=== PATIENT | male | born 1960 | race Caucasian/White ===

== ENCOUNTER 2021-11-01 07:16 | Inpatient (IN) | payer OTHER, SELFPAY ==
[2021-11-01] VITALS (30 sets, daily range): BP systolic 114–164; BP diastolic 76–113; PULSE 82–99; RESP 8–22; TEMP 36.1–36.9; O2SAT 94–100
--- NOTE | 2021-11-01 | ECHO_ITS ---
Patient Info Name: Azeem Sweeney Age: 60 years : 1960 Gender: Male Ht: 77 in Wt: 252 lbs BSA: 2.51 m2 HR: 85 bpm BP: 146 / 99 mmHg Heart Rhythm: Sinus Rhythm Technical Quality: Fair Exam Date: 11/01/2021 4:59 PM Exam Location: [facility] Patient Status: Inpatient Admit Date: 11/01/2021 Staff Ordering Physician: Lucho Gutiérrez MD Car Mechanic Helper: Luna Coleman RDCS Attending Provider: Ton Gan MD Referring Physician: Brock RODRIGUEZ; Exam Type: CA echo doppler color flow Study Info Indications - cad, dyspnea, elevated troponin Complete two-dimensional, color flow and Doppler transthoracic echocardiogram is performed. Summary 1. Complete two-dimensional, color flow and Doppler transthoracic echocardiogram is performed. 2. Left ventricular chamber dimension is normal. 3. Left ventricular systolic function is normal, estimated at 65-70%. 4. There is mildly increased left ventricular wall thickness. 5. The left ventricular diastolic function is grade I diastolic dysfunction. 6. There is mild mitral valve regurgitation. 7. No pulmonary hypertension, estimated pulmonary arterial systolic pressure is 32 mmHg. Left Ventricle Left ventricular chamber dimension is normal. Left ventricular systolic function is normal, estimated at 65-70%. There is mildly increased left ventricular wall thickness. The left ventricular diastolic function is grade I diastolic dysfunction. Right Ventricle Right ventricular chamber dimension is normal. Right ventricular systolic function is normal. Left Atria Left atrial chamber dimension is normal. Right Atria Right atrial chamber dimension is normal. Atrial Septum Intact interatrial septum visualized by color flow imaging. Aortic Valve The aortic valve is trileaflet. There is mild aortic valve sclerosis. There is no aortic valve stenosis. There is trace aortic valve regurgitation. Pulmonic Valve The pulmonic valve is normal. There is no pulmonic valve stenosis. There is trace pulmonic regurgitation. Mitral Valve The mitral valve has thickened leaflets. There is no mitral valve stenosis. There is mild mitral valve regurgitation. Tricuspid Valve The tricuspid valve leaflets are normal. There is no significant tricuspid valve stenosis. There is trace tricuspid valve regurgitation. No pulmonary hypertension, estimated pulmonary arterial systolic pressure is 32 mmHg. Pericardium/Pleural The pericardium appears normal. There is trivial pericardial effusion. Inferior Vena Cava Normal inferior vena cava with >50% collapse upon inspiration consistent with normal right atrial pressure, 5 mmHg. Aorta The aortic root size at the sinus of Valsalva is normal. The prox ascending aorta size is normal. Left Ventricular Outflow Tract Name Value Normal LVOT 2D LVOT Diameter 2.1 cm LVOT Doppler LVOT Peak Gradient 5 mmHg LVOT Mean Gradient 2 mmHg LVOT VTI 18 cm LVOT VTI/AV VTI Ratio 1.[address]
--- NOTE | ~2021-11-01 | XR_ITS ---
XR chest 2V DATE: 11/01/2021 08:13 INDICATION: Dyspnea TECHNIQUE: PA and lateral views COMPARISON: None FINDINGS: There is bilateral apical scarring, more prominent on the right. Approximately 7 mm nodular density in the right apex; lung mass is not excluded. CT thorax examination is recommended. No pulmonary consolidation, pleural effusion, pulmonary vascular congestion or pneumothorax is eviden t. Heart size is within normal range. No hilar or mediastinal enlargement is evident. IMPRESSION: Possible approximately 7 mm nodular mass, right apical area; CT thorax is recommended Bilateral apical scarring, right greater than left Reviewed, dictated and finalized at location A. MIN MANAGER IMPRESSION: Possible approximately 7 mm nodular mass, right apical area; CT tho rax is recommended Bilateral apical scarring, right greater than left
--- NOTE | ~2021-11-01 | XR_ITS ---
EXAMINATION: XR knee LT 2V DATE: 11/05/2021 10:09 INDICATION: Left knee pain without injury. TECHNIQUE: 2 views of left knee standing were obtained. COMPARISON: None. FINDINGS: Bone alignment is normal. No fracture. There is mild osteoarthritis of medial and patellofe moral compartments characterized by tiny osteophytes. No joint space narrowing. No knee joint effusio n. IMPRESSION: 1. Mild left knee osteoarthritis. Reviewed, dictated and finalized at location A. ADJUSTER
--- NOTE | ~2021-11-01 | CT_ITS ---
EXAMINATION: CTA chest PE protocol DATE: 11/01/2021 09:17 INDICATION: Dyspnea. Lung mass. TECHNIQUE: Computed tomography angiography (CTA) of the chest was performed with 100 mL Omnipaque-350 intravenous contrast timed to evaluate the pulmonary arteries. Coronal maximum intensity projection 3D-reconstructions were created by the technologist. Automated exposure control and iterative reconst ruction technique were employed. Exam dose: 919.86 mGy-cm total exam DLP. COMPARISON: 11/01/2021 2 view chest FINDINGS: There is diagnostic contrast enhancement of the pulmonary arteries and no evidence of pulmo nary embolism. No thoracic aortic aneurysm or dissection. Normal heart size. Coronary artery calcifications. There is trace pericardial fluid. No hilar or mediastinal mass lesion or lymphadenopathy. There is prominent right and lesser left apical scarring. There is discoid fibrocalcific scarring in the right apical area. There is a 7 mm oval calcification in the right apical area which accounts for the nodular density noted on the plain chest radiograph. Additional calcifications are noted in the right upper lobe. There are severe emphysematous changes of the lungs. Included skeletal structures are unremarkable. IMPRESSION: Bilateral apical and right upper lobe scarring including prominent fibrocalcific discoid scarring is in the right upper lung Severe emphysema No evidence of pulmonary embolism Reviewed, dictated and finalized at Location A. Reviewed, dictated and finalized at location A. LAYER
--- NOTE | ~2021-11-01 | XR_ITS ---
EXAMINATION: XR knee RT 2V DATE: 11/05/2021 10:09 INDICATION: Right knee pain without injury. TECHNIQUE: 2 views of right knee were obtained. COMPARISON: None. FINDINGS: Bone alignment is normal. No fracture. There is mild tricompartmental osteoarthritis charac terized by tiny osteophytes. No joint space narrowing. No knee joint effusion. IMPRESSION: 1. Mild right knee osteoarthritis. Reviewed, dictated and finalized at location A. CONDITIONER
--- NOTE | 2021-11-01 07:29 | ED.SOB ---
HPI - SOB/Dyspnea General Chief Complaint: Shortness of Breath/Dyspnea Stated Complaint: diff breathing Time Seen by Provider: 11/01/21 07:29 Source: patient Mode of arrival: ambulatory Limitations: no limitations History of Present Illness HPI Narrative: Patient is a 60-year-old male with a history of hypertension, hyperlipidemia, COPD, recent STEMI with stent placement, hospitalized at [facility], presenting to the emergency department for evaluation of shortness of breath. Patient states that he has been awakening in the morning with cough, increased sputum production. At times he feel the sputum gets stuck in his throat. At that point, the patient states he is unable to breathe and his oxygen level drops. Patient states oxygen level dropped to 82%, states he has been checking it at home with home pulse ox. Patient denies fever, chills. Denies current chest pain. Does report shortness of breath that worsens with exertions. Denies lower extremity swelling or edema. Denies calf pain. Patient has been compliant with his medications following his STEMI at outlying facility. Patient states he has not missed his anticoagulation. Denies current active chest pain. Patient states that prior to that he was hospitalized at [facility] in [place] for pneumonia but tested negative for Covid. Patient also states he tested negative for Covid with his [facility] hospitalization. Patient states he decided to seek care at this facility because he did not like the physician at [facility], and states that they did not take his insurance. Patient states that he does not want to be transferred to [facility]. Related Data Home Medications Medication Instructions Recorded Confirmed albuterol sulfate [Proventil HFA] INHALATION 11/01/21 aspirin 11/01/21 atorvastatin 80 mg PO DAILY 11/01/21 11/01/21 gjowlatdufy-ntnpyfasj-ipsymdur 1 inh INHALATION DAILY 11/01/21 11/01/21 [Kaya Portillota] irbesartan 300 mg PO DAILY 11/01/21 11/01/21 metoprolol succinate 25 mg PO DAILY 11/01/21 11/01/21 nitroglycerin mg 11/01/21 pantoprazole 40 mg PO DAILY 11/01/21 11/01/21 prednisone 20 mg PO BID 11/01/21 11/01/21 ticagrelor 90 mg PO Q12H 11/01/21 11/01/21 Allergies Allergy/AdvReac Type Severity Reaction Status Date / Time NKDA Allergy Mild Uncoded 03/09/08 16:37 Review of Systems Review of Systems: CONSTITUTIONAL: Denies fever, chills, or sweats. EYES: Denies visual changes, redness, or discharge. ENT: Reports rhinorrhea, congestion CARDIOVASCULAR: Denies chest pain, palpitations, or edema. RESPIRATORY: Reports cough and shortness of breath GASTROINTESTINAL: Denies abdominal pain, nausea, vomiting, or diarrhea. GENITOURINARY: Denies dysuria or hematuria. SKIN: Denies rash or itching. MUSCULOSKELETAL: Denies back pain, joint pain, or myalgia. NEUROLOGIC: Denies headache, numbness, or weakness. Exam Narrative: GENERAL: Awake, alert, conversant HEAD: Normocephalic, atraumatic. EYES: PERRLA and EOMI. ENT: Nares clear, no rhinorrhea or epistaxis. Mucous membranes moist. NECK: Supple. CHEST: No respiratory distress, breathing even and non labored, coarse breath sounds bilaterally, expiratory wheezing bilateral bases HEART: Tachycardic rate, sinus rhythm ABDOMEN:Non distended, non tender EXTREMITIES: Normal range of motion. No edema. No calf tenderness. SKIN: Warm, dry, no rash. NEURO:No focal deficits. Alert and oriented x3 Course Vital Signs Vital signs: Vital Signs Pulse Rate 94 11/01/21 07:19 Respiratory Rate 12 11/01/21 07:19 Blood Pressure 164/113 H 11/01/21 07:19 Pulse Oximetry 99 11/01/21 07:19 Temperature 36.1 C L 11/01/21 07:38 Pulse Rate 84 11/01/21 11:15 Respiratory Rate 18 11/01/21 11:15 Blood Pressure 145/91 H 11/01/21 07:45 Pulse Oximetry 97 11/01/21 11:51 MDM - SOB/Dyspnea MDM Narrative Medical decision making narrative: Patient presented for may
[2021-11-01] MEDS: ALBUTEROL SULFATE NEB 2.5 MG/0.5 ML INH 5 MG INHALATION ×3 (07:57→19:56)
[2021-11-01] MEDS: IPRATROPIUM BR 0.02% INH SOLN 0.5 MG/2.5 ML VIAL INHALATION ×3 (07:57→19:56)
[2021-11-01 08:11] LABS: Basophils Percent Auto 0.2 % (0.2-1.2); Hematocrit 45.2 % (42.0-52.0); Hemoglobin 15.3 g/dL (14.0-18.0); Lymphocytes Absolute Auto 0.86 K/mm3 (0.9-3.2); Lymphocytes Percent Auto 4.3 % (18.3-44.2); Mean Corpuscular HGB Conc 33.8 g/dl (32-36); Mean Corpuscular Hemoglobin 32.2 pg (26-34); Mean Corpuscular Volume 95.2 fl (80-100); Mean Platelet Volume 12.3 fl (7.4-10.4); Monocytes Absolute Auto 0.7 K/mm3 (0.1-0.6); Monocytes Percent Auto 3.3 % (2.6-8.5); Neutrophils Absolute Auto 17.8 K/mm3 (1.3-6.7); Neutrophils Percent Auto 90.2 % (45.5-73.1); Platelet Count Result 139 k/mm3 (150-375); Red Blood Count 4.75 M/mm3 (4.6-6.20); White Blood Count 19.8 K/mm3 (4.5-10.0)
[2021-11-01] MEDS: SODIUM CHLORIDE 0.9% IV 500 ML 999 ML IV CONT (08:15)
[2021-11-01] MEDS: methylPREDNISolone SOD SUCC 125 MG VIAL IV PUSH (08:16)
[2021-11-01 08:24] LABS: INR 0.9; Prothrombin Time 11.9 Seconds (11.1-14.7)
[2021-11-01 08:25] LABS: Alanine Aminotransferase 64 U/L (4-50); Albumin Level 4.2 g/dL (3.5-5.1); Alkaline Phosphatase 71 U/L (38-126); Anion Gap 8 mmol/L (8-16); Aspartate Amino Transferase 42 U/L (17-59); Bilirubin,Total 0.7 mg/dL (0.2-1.3); Blood Urea Nitrogen 23 mg/dL (9-20); Calcium 8.6 mg/dL (8.4-10.2); Carbon Dioxide 24 mmol/L (22-30); Chloride 103 mmol/L (98-107); Estimated CRCL calculation 106 ml/min; Estimated Glomerular Filt Rate > 60; Glucose 142 mg/dL (65-110); Partial Thromboplastin Time 22.6 SECONDS (22.3-36.8); Sodium 135 mmol/L (137-145)
[2021-11-01 08:34] LABS: NT Pro B Type Natriuretic Pept 71 pg/mL (5-100); Troponin I 0.628 ng/mL (0.000-0.034)
--- NOTE | 2021-11-01 10:29 | PC.NURSE ---
pt refusing covid swab test, informed of possible transfer to [place], pt denied and stated he would not like to go by [facility] and instead would drive himself. notified and aware.
--- NOTE | 2021-11-01 11:20 | PC.NURSE ---
MD spoke with pt and gave update on status and reason for transfer/admission. Pt understood and stated he would like to be admitted here or [facility]. Pt agreed to covid swab.
[2021-11-01 11:47] LABS: Troponin I 0.722 ng/mL (0.000-0.034)
--- NOTE | 2021-11-01 11:49 | ECG_ITS ---
Measurements Intervals [place] Rate: 90 P: 56 [place]: 144 QRS: 21 QRSD: 86 T: 82 QT: 337 QTc: 412 Interpretive Statements SINUS RHYTHM NONSPECIFIC T-WAVE ABNORMALITY ABNORMAL ECG NO PREVIOUS ECG AVAILABLE FOR COMPARISON Electronically Signed On 11-01-2021 13:59:40 DOCUMENT CONTROL CLERK by Lucho Gutiérrez M.D.
[2021-11-01 12:39] LABS: SARS-CoV-2 RNA PCR Negative
[2021-11-01] MEDS: methylPREDNISolone SOD SUCC 125 MG VIAL 60 MG IV PUSH ×3 (14:41→23:12)
[2021-11-01 16:21] LABS: Troponin I 0.561 ng/mL (0.000-0.034)
--- NOTE | 2021-11-01 16:27 | PM.CNCAR ---
Assessment and Plan Assessment and plan (1) Elevated troponin: Code(s): R77.8 - Other specified abnormalities of plasma proteins Status: Acute Assessment and Plan: Likely secondary to underlying severe COPD and dyspnea from COPD. I do not think this is from acute plaque rupture even though he recently had a ST-elevation myocardial infarction. Will continue to trend troponins. Will repeat EKG tomorrow. Will check a 2D echocardiogram with Doppler. Will request records from [place] to clarify his coronary history. (2) COPD exacerbation: Code(s): J44.1 - Chronic obstructive pulmonary disease with (acute) exacerbation Status: Acute Assessment and Plan: Will hold the metoprolol for now given his acute COPD exacerbation. Further treatment per hospitalist/pulmonology but likely need steroids and nebulizers (3) Coronary disease: Code(s): I25.10 - Atherosclerotic heart disease of [place] coronary artery without angina pectoris Status: Acute Assessment and Plan: Recent STEMI. Previous PCI prior to STEMI also. Continue aspirin 81 mg p.o. daily, Brilinta 90 mg p.o. b.i.d., atorvastatin 80 mg daily. Hold metoprolol because of his COPD exacerbation. Echocardiogram will be ordered. Will request records (4) Acute dyspnea: Code(s): R06.00 - Dyspnea, unspecified Status: Acute Assessment and Plan: Mostly related to underlying COPD exacerbation. He also refers to a sensation like something is stuck in his throat or but he cannot breathe and his upper airway. He actually may need a ENT evaluation (5) Hyperlipidemia: Code(s): E78.5 - Hyperlipidemia, unspecified Status: Acute Assessment and Plan: Continue high-dose statin (6) Hypertension: Code(s): I10 - Essential (primary) hypertension Status: Acute Assessment and Plan: Irbesartan 300 mg daily. (7) PND (paroxysmal nocturnal dyspnea): Code(s): R06.00 - Dyspnea, unspecified Status: Acute Assessment and Plan: Undoubtedly has sleep apnea. Will order an ApneaLink tonight History of Present Illness History of Present Illness Consult date/time: 11/01/21 16:27 Requesting physician: Terra Manjarrez MD Consult reason: Other (Elevated troponin) Reason For Visit: COPD Exacerbation, Troponin Elevation Narrative: Date of service 11/01/2021 Reason consultation: Elevated troponin, shortness of breath, recent [place] Requesting provider: Dr. Manjarrez History: Patient is a 60-year-old male who has history of CAD. He had a stent placed several years ago and was recently at [facility] because of a ST-elevation myocardial infarction. 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 He was discharged yesterday. He shows up to the hospital here today in [place] because of a sensation as if he has a mucous plug in his upper throat. He feels short of breath. He has had worsening swelling for the past year or so. This is persistent but better than what it had been. He does describe paroxysmal nocturnal dyspnea. No syncope or presyncope. Has had no chest pain since his myocardial infarction and stent placement a few days ago. He was discharged home on metoprolol, dual anti-platelet therapy, statin and other pulmonary medications. In the process of workup his troponins were slightly elevated and the 2nd set was slightly more elevated and therefore the patient was admitted for further evaluation. He currently feels fine and is without significant complaint except for cough and discontinue sensation of mucus buildup in his throat. Prior to his stent at [facility] he was admitted at [place] for pneumonia. He does have a history of severe COPD Review of Systems Review of Systems: All systems reviewed &
--- NOTE | 2021-11-01 17:06 | ADMGEN ---
This patient, Azeem Sweeney, was admitted to IMU Room 203-01 at 1519. Patient/family oriented to hospital policies and general routines including ID bracelet, bed and alarms, visiting hours, pain management, procedures, bathroom and other care routines, personal items, smoking policy, room service/diet, and visiting hours. Information on how to activate the Rapid Response Team has been discussed. Patient/Family are encouraged to report perceived risks to care and to ask questions if they do not understand what they are told or what they should do.
[2021-11-01] MEDS: FUROSEMIDE INJ 40 MG/4 ML VIAL IV PUSH (18:11)
[2021-11-01 19:40] LABS: Troponin I 0.566 ng/mL (0.000-0.034)
--- NOTE | 2021-11-01 20:05 | PCRCNOTE ---
Apnea link ordered on 11/01 unable to perform due to pt being on Lasix during the night.
[2021-11-01] MEDS: TICAGRELOR 90 MG TABLET PO (20:09)
--- NOTE | 2021-11-01 21:45 | PM.IMHP ---
H&P: HPI History of Present Illness Date/Time: Patient was placed observation status for expected length of stay less than 23 hours for management, will plan to re-evaluate tomorrow for improvement. 11/01/21 21:45 Chief Complaint: Shortness of breath Narrative: Mr. Sweeney is a 60-year-old gentleman who presented emergency room with complaints of increasing shortness of breath today. Patient states he has a history of COPD and he felt like he had a large amount of mucus caught his certain he could not catch his breath. Patient states that he has a pulse oximeter at home and when he checked his pulse oximeter was 82% on room air with walking. Patient states he has been on steroids secondary to his COPD. Patient states he also recently did have a Zaiz ST segment elevated myocardial infarction and had a stent placed at [facility] in [place], [place]. Patient had an Reji stent placed to his mid OM. Patient states he has been taking all medications as ordered and has not missed any of his medications. Patient states he also did have a stent placed [address] [facility] was in [place]. Patient denies any lightheadedness, dizziness, syncopal, or near syncopal episodes. Patient denies any active chest pain or palpitations. Patient states he does have a history of COPD, CAD status post stent placement x2, dyslipidemia, and hypertension. Upon evaluation in emergency room patient was placed on a pulse oximeter and was noted to be 100% on room air. Patient did have chest x-ray performed that showed a 7 mm nodular mass in the right apical area. Patient also underwent CTA that showed bilateral apical and right upper lobe scarring including prominent fibrocalcific discoid scarring he in the right upper lung, severe emphysema, and no evidence of pulmonary embolism. Review of Systems Review of Systems: A 12 point review of systems was completed patient all pertinent positive and negative per HPI the remainder are unremarkable. [facility] Past Medical History Medical History (Updated 11/01/21 @ 21:56 by Sherie Fernandez APRN) COPD (chronic obstructive pulmonary disease) Coronary disease Dyslipidemia Former tobacco use Hypertension Family History Family History (Updated 11/01/21 @ 16:31 by Lucho Gutiérrez MD) Father Acute myocardial infarction Social History Social History Smoking packs per day: 2 Smoking cigarettes per day: 40.0 Years smoked: 40 Smoking pack-years: 80.00 Smoking status: Former smoker Spiritual care concerns: No Meds Home Medications and Allergies Home Medications Medication Instructions Recorded Confirmed Type albuterol sulfate [Proventil HFA] 2 puff INHALATION Q6H 11/01/21 11/01/21 History aspirin 81 mg PO DAILY 11/01/21 11/01/21 History atorvastatin 80 mg PO DAILY 11/01/21 11/01/21 History cefdinir 300 mg PO BID 11/01/21 11/01/21 History kasqjwstdms-ubsdrozfl-ptvrgcav 1 inh INHALATION DAILY 11/01/21 11/01/21 History [Trelegy Ellipta] ipratropium-albuterol 3 ml INHALATION Q6H PRN 11/01/21 11/01/21 History irbesartan 300 mg PO DAILY 11/01/21 11/01/21 History metoprolol succinate 25 mg PO DAILY 11/01/21 11/01/21 History nitroglycerin 0.4 mg SUBLINGUAL Q5MIN 11/01/21 11/01/21 History pantoprazole 40 mg PO DAILY 11/01/21 11/01/21 History prednisone 20 mg PO BID 11/01/21 11/01/21 History ticagrelor 90 mg PO Q12H 11/01/21 11/01/21 History Allergies Allergy/AdvReac Type Severity Reaction Status Date / Time NKDA Allergy Mild Uncoded 03/09/08 16:37 Vital Signs Vital Signs - 24 hr 11/01/21 07:19 11/01/21 07:23 11/01/21 07:36 Temperature Pulse Rate 94 97 Respiratory Rate 12 17 Blood Pressure 164/113 H 153/105 H Pulse Oximetry 99 99 96 11/01/21 07:38 11/01/21 07:45 11/01/21 07:57 Temperature 36.1 C L Pulse Rate 89 90 90 Respiratory Rate 12 14 12 Blood Pressure 153/105 H 145/91 H Pulse Oximetry 96 97 11/01/21 08:00 11/01/21 08:06 11/01/21 09:31
[2021-11-02] VITALS (23 sets, daily range): BP systolic 122–137; BP diastolic 82–93; PULSE 83–109; RESP 18–22; TEMP 35.7–36.6; O2SAT 90–97
[2021-11-02] MEDS: IPRATROPIUM BR 0.02% INH SOLN 0.5 MG/2.5 ML VIAL INHALATION ×4 (01:52→20:26)
[2021-11-02] MEDS: ALBUTEROL SULFATE NEB 2.5 MG/0.5 ML INH 5 MG INHALATION ×4 (01:52→20:26)
[2021-11-02 05:03] LABS: Basophils Absolute Auto 0.1 K/mm3 (0.0-0.1); Basophils Percent Auto 0.2 % (0.2-1.2); Hematocrit 47.6 % (42.0-52.0); Hemoglobin 16.5 g/dL (14.0-18.0); Immature Granulocyte Absolute 0.38 K/mm3 (0.00-0.031); Immature Granulocyte Percent A 1.8 % (0-0.5); Lymphocytes Absolute Auto 1.25 K/mm3 (0.9-3.2); Lymphocytes Percent Auto 5.8 % (18.3-44.2); Mean Corpuscular HGB Conc 34.7 g/dl (32-36); Mean Corpuscular Hemoglobin 32.7 pg (26-34); Mean Corpuscular Volume 94.3 fl (80-100); Mean Platelet Volume 12.5 fl (7.4-10.4); Monocytes Absolute Auto 0.8 K/mm3 (0.1-0.6); Monocytes Percent Auto 3.6 % (2.6-8.5); Neutrophils Absolute Auto 19.2 K/mm3 (1.3-6.7); Neutrophils Percent Auto 88.6 % (45.5-73.1); Platelet Count Result 168 k/mm3 (150-375); Red Blood Count 5.05 M/mm3 (4.6-6.20); Red Cell Distribution Width 14.2 % (11.5-14.5); White Blood Count 21.7 K/mm3 (4.5-10.0)
[2021-11-02 05:34] LABS: Anion Gap 11 mmol/L (8-16); Blood Urea Nitrogen 27 mg/dL (9-20); Calcium 8.7 mg/dL (8.4-10.2); Carbon Dioxide 25 mmol/L (22-30); Chloride 100 mmol/L (98-107); Estimated CRCL calculation 86 ml/min; Estimated Glomerular Filt Rate > 60; Glucose 145 mg/dL (65-110); Potassium 4.3 mmol/L (3.4-5.0); Sodium 136 mmol/L (137-145)
[2021-11-02] MEDS: methylPREDNISolone SOD SUCC 125 MG VIAL 60 MG IV PUSH ×4 (05:54→23:00)
--- NOTE | 2021-11-02 08:00 | ECG_ITS ---
Measurements Intervals [place] Rate: 102 P: 74 NE: 151 QRS: 57 QRSD: 94 T: 88 QT: 315 QTc: 411 Interpretive Statements SINUS TACHYCARDIA NONSPECIFIC ST & T-WAVE ABNORMALITY CANNOT RULE OUT PREVIOUS INFERIOR INFARCTION, AGE UNDETERMINED ABNORMAL ECG Electronically Signed On 11-02-2021 15:22:27 BATCH RECORDS CLERK by Lucho Gutiérrez M.D.
[2021-11-02] MEDS: FLUTICASONE/UMECLIDIN/VILANTER 200-62.5-25 MCG ELLIPTA 1 PUFF INHALATION (08:05)
[2021-11-02] MEDS: ASPIRIN 81 MG ENTERIC TABLET PO (09:31)
[2021-11-02] MEDS: IRBESARTAN 150 MG TABLET 300 MG PO (09:31)
[2021-11-02] MEDS: METOPROLOL SUCCINATE EXT REL 25 MG TABCR PO (09:31)
[2021-11-02] MEDS: ATORVASTATIN 40 MG TABLET 80 MG PO (09:31)
[2021-11-02] MEDS: TICAGRELOR 90 MG TABLET PO ×2 (09:31→20:18)
[2021-11-02] MEDS: PANTOPRAZOLE 40 MG TABLET PO (09:31)
[2021-11-02] MEDS: ENOXAPARIN 40 MG/0.4 ML SYRINGE SUB-Q (09:32)
--- NOTE | 2021-11-02 13:36 | PM.PNCARD ---
Progress Note: A&P Assessment and Plan (1) Elevated troponin: Code(s): R77.8 - Other specified abnormalities of plasma proteins Status: Acute Assessment and Plan: Likely secondary to underlying severe COPD and dyspnea from COPD. I do not think this is from acute plaque rupture even though he recently had a ST-elevation myocardial infarction. (2) COPD exacerbation: Code(s): J44.1 - Chronic obstructive pulmonary disease with (acute) exacerbation Status: Acute Assessment and Plan: Further treatment per hospitalist/pulmonology but likely need steroids and nebulizers. He still has some mild lower extremity swelling and will give another dose of IV furosemide 20 mg x1 (3) Coronary disease: Code(s): I25.10 - Atherosclerotic heart disease of [place] coronary artery without angina pectoris Status: Acute Assessment and Plan: Recent STEMI. Previous PCI prior to STEMI also. Continue aspirin 81 mg p.o. daily, Brilinta 90 mg p.o. b.i.d., atorvastatin 80 mg daily. PCI was to the circumflex. (4) Acute dyspnea: Code(s): R06.00 - Dyspnea, unspecified Status: Acute Assessment and Plan: Mostly related to underlying COPD exacerbation. He also refers to a sensation like something is stuck in his throat or but he cannot breathe and his upper airway. He actually may need a ENT evaluation (5) Hyperlipidemia: Code(s): E78.5 - Hyperlipidemia, unspecified Status: Acute Assessment and Plan: Continue high-dose statin (6) Hypertension: Code(s): I10 - Essential (primary) hypertension Status: Acute Assessment and Plan: Irbesartan 300 mg daily. (7) PND (paroxysmal nocturnal dyspnea): Code(s): R06.00 - Dyspnea, unspecified Status: Acute Assessment and Plan: Undoubtedly has sleep apnea. Apnea link not performed because of ?Lasix ? Subjective Date/time seen: 11/02/21 13:36 Interval history: 60-year-old admitted with elevated troponins and shortness of breath. Date of service 11/02/2021: Still feels like he has a lot of ?mucus?. He has no chest pain. Has shortness of breath and mild swelling. Review of Systems Review of Systems: All systems reviewed & are unremarkable except as noted in HPI and below Constitutional: Constitutional: Denies excessive sweating, Denies headache(s) and Denies weakness Eyes: Eyes: Denies blurry vision ENT: Reports Normal hearing present, Denies headache(s) and Denies neck pain Cardiovascular: Cardiovascular: Reports chest pain, Reports pedal edema, Reports leg edema and Reports dyspnea Respiratory: Respiratory: Reports dyspnea Gastrointestinal: Gastrointestinal: Denies abdominal pain Genitourinary: Genitourinary: Denies dysuria Musculoskeletal: Musculoskeletal: Denies neck pain Integumentary/Breasts: Skin/Breast: Denies dry skin Neurologic: Reports Normal hearing present, Denies headache(s) and Denies weakness Psychiatric: Psychiatric: Denies anxiety Endocrine: Endocrine: Denies excessive sweating Hematologic/Lymphatic: Hematologic/Lymphatic: Denies easy bleeding Allergic/Immunologic: Allergic/Immunologic: Denies GI upset with certain foods Exam Narrative: Patient awake alert oriented appears stated age Const: General: comfortable and no acute distress HENMT: General nose exam: Normal nares present Eyes: Sclera: sclerae normal Neck: Neck: supple and no JVD Chest: Other: No reproducible chest wall pain to palpation Resp: Auscultation: wheezes Other: Extensive wheezes noted bilaterally Cardio: Rate: regular rate Rhythm: regular rhythm Heart sounds: no murmurs GI: Auscultation: normal bowel sounds Skin: General skin exam: normal color Neuro: Cranial nerves: Yes Normal hearing present Cognition (Neuro): normal cognition Speech: normal speech Extrem: General: edema (1+ bilateral extremity edema) Psych: Mental Status: mental status grossly normal
[2021-11-02] MEDS: FUROSEMIDE INJ 40 MG/4 ML VIAL 20 MG IV PUSH (14:38)
--- NOTE | 2021-11-02 16:24 | PM.IMPN ---
Progress Note: A&P Additional Plan Assessment and plan (1) COPD (chronic obstructive pulmonary disease): Code(s): J44.9 - Chronic obstructive pulmonary disease, unspecified Status: Acute Assessment and Plan: - Not requiring supplemental Oxygen at this time. - Patient has been placed on Solu-Medrol 60 mg IV q.6 hours as well as DuoNeb treatments, prn albuterol and Trelegy. - He continues to complain about his Dyspnea and feeling that he cannot clear his secretions, so he is started on Guaifenesin 600 mg po BID and Pulmonology is consulted. Appreciate their recommendations on co-management of his COPD. (2) Elevated troponin: Code(s): R77.8 - Other specified abnormalities of plasma proteins Status: Acute Assessment and Plan: - STEMI on SaturdayOctober 29. - Stented at [facility] in [place]. - Etiology of elevated troponin from oxygen demand due to COPD exacerbation vs. from recent STEMI. - Cardiology has consulted and believe the symptoms are due to the underlying COPD. - As pt. remains swollen in the BLE, Cardiology does order another dose of IV Lasix 20 mg. (3) Hypertension: Code(s): I10 - Essential (primary) hypertension Status: Acute Assessment and Plan: - Continue home medications. (4) Leukocytosis: Code(s): D72.829 - Elevated white blood cell count, unspecified Status: Acute Assessment and Plan: - Etiology infectious vs. Pharmacological. Suspicion secondary to steroids. - CXR and CTA are negative for any acute infectious process in the lungs. - Continue to monitor daily. Time Spent With Patient Time with patient: 15 - 25 minutes Subjective Date/time seen: 11/02/21 1340 This pt. was examined at the bedside today in interval assessment. He has been evaluated by Cardiology and there is a low suspicion of any repeat ACS or plaque rupture. The pt. more-so complains of having a feeling that he cannot clear his secretions with coughing. He endorses that he has a persistently dry cough that is not productive of any sputum and that he feels and hears himself wheezing. He has been on steroids at home as of recent and cites that they have not helped his respiratory status either as they normally do. The use of these steroids (Prednisone 20 mg po BID) at home is likely the cause of his current Leukocytosis of 21.7. CTA of chest was reviewed and shown bilateral apical and RUL scarring including prominent fibrocalcific discoid scarring in the RUL. There is severe emphysema and no PE. CXR was also reviewed and shown a possible approximately 7 mm nodular mass in the right apical area. This is noted on CTA to be a calcification, and there are also additional calcifications in the RUL. There was also bilateral apical scarring, R>L. Current Pulmonary Medications are 1) Solumedrol 60 mg IVP Q6 hours, 2) Albuterol and Atrovent scheduled, 3) PRN Albuterol 4) Trelegy Ellipta. Pt. states he still does not feel ready for discharge to home at this time and asks if he can stay as he doesn't feel his breathing is better. I am agreeable to this plan and am going to consult Pulmonology for co-management. Review of Systems Review of Systems: A 12 point ROS was performed and is otherwise negative with exception of what is noted in HPI. Exam Narrative: Constitutional: Patient is well-nourished in no acute distress. Patient is alert oriented x3 HEENT: Moist mucous membranes. No scleral icterus. No lymphadenopathy. Neck: No carotid bruits noted no JVD noted Lungs: Lung sounds are decreased to auscultation bilaterally. There is a prolonged expiratory phase with expiratory wheezing audible posteriorly and anteriorly. Cardiovascular: Apical pulse is regular rate and rhythm. S1-S2 noted, no S3 or S4 noted. No gallops, murmurs, or rubs noted. Abdomen: Soft, round, and nontender. No palpable masses. Extremities: No edema. Nontender. Skin: No rashes or lesions. Warm and
[2021-11-02 17:40] LABS: Alveolar/Arterial O2 Gradient 41.4 mmHg; Base Excess ABG -2.2 mEq/l (+/-2.0); Device ROOM AIR; Fractional Inspired Oxygen 21 %; HCO3 ABG 19.8 mEq/l (22.0-26.0); Modified Allen's Test Pass; Oxygen Content ABG 21.9 %vol (16.0-22.0); Oxyhemoglobin 94.1 % THb (90.0-100.0); PO2 ABG 74.8 mmHg (80.0-100.0); PO2 FiO2 Ratio Arterial Blood 3.56 %; Site Drawn RIGHT RADIAL; Total Hemoglobin 16.6 g/dL (12.0-18.0); pH ABG 7.467 (7.350-7.450)
--- NOTE | 2021-11-02 18:08 | PC.NURSE ---
This patient, Azeem Sweeney, was received from [facility]u on 11/02/21 at 1808. Patient/family oriented to unit policies and routines
[2021-11-02] MEDS: guaiFENesin 12 HR 600 MG TABCR PO (20:18)
[2021-11-03] VITALS (22 sets, daily range): BP systolic 124–145; BP diastolic 85–95; PULSE 75–106; RESP 16–20; TEMP 36.3–36.7; O2SAT 91–98
--- NOTE | 2021-11-03 01:59 | PCRCNOTE ---
Nebulizer treatment scheduled for 02:00 on 11/03/21 not administered. Pt on overnight sleep study and not to be disturbed. Entered room to confirm ApneaLink lights were all green, but did not administer nebulizer treatment.
[2021-11-03] MEDS: methylPREDNISolone SOD SUCC 125 MG VIAL 60 MG IV PUSH (05:03)
[2021-11-03 05:38] LABS: Basophils Absolute Auto 0.1 K/mm3 (0.0-0.1); Basophils Percent Auto 0.2 % (0.2-1.2); Hematocrit 45.8 % (42.0-52.0); Hemoglobin 15.8 g/dL (14.0-18.0); Immature Granulocyte Absolute 0.44 K/mm3 (0.00-0.031); Immature Granulocyte Percent A 1.8 % (0-0.5); Lymphocytes Absolute Auto 1.42 K/mm3 (0.9-3.2); Lymphocytes Percent Auto 5.8 % (18.3-44.2); Mean Corpuscular HGB Conc 34.5 g/dl (32-36); Mean Corpuscular Volume 92.9 fl (80-100); Mean Platelet Volume 12.3 fl (7.4-10.4); Monocytes Absolute Auto 1.1 K/mm3 (0.1-0.6); Monocytes Percent Auto 4.4 % (2.6-8.5); Neutrophils Absolute Auto 21.5 K/mm3 (1.3-6.7); Neutrophils Percent Auto 87.8 % (45.5-73.1); Platelet Count Result 177 k/mm3 (150-375); Red Blood Count 4.93 M/mm3 (4.6-6.20); Red Cell Distribution Width 13.9 % (11.5-14.5); White Blood Count 24.4 K/mm3 (4.5-10.0)
[2021-11-03 05:50] LABS: Anion Gap 7 mmol/L (8-16); Blood Urea Nitrogen 34 mg/dL (9-20); Calcium 8.4 mg/dL (8.4-10.2); Carbon Dioxide 29 mmol/L (22-30); Chloride 100 mmol/L (98-107); Estimated CRCL calculation 86 ml/min; Estimated Glomerular Filt Rate > 60; Glucose 156 mg/dL (65-110); Magnesium 2.2 mg/dL (1.6-2.3); Potassium 4.6 mmol/L (3.4-5.0); Sodium 136 mmol/L (137-145)
[2021-11-03] MEDS: guaiFENesin 12 HR 600 MG TABCR PO ×2 (08:00→20:49)
[2021-11-03] MEDS: PANTOPRAZOLE 40 MG TABLET PO (08:01)
[2021-11-03] MEDS: TICAGRELOR 90 MG TABLET PO ×2 (08:01→20:49)
[2021-11-03] MEDS: IRBESARTAN 150 MG TABLET 300 MG PO (08:01)
[2021-11-03] MEDS: ASPIRIN 81 MG ENTERIC TABLET PO (08:01)
[2021-11-03] MEDS: ATORVASTATIN 40 MG TABLET 80 MG PO (08:01)
[2021-11-03] MEDS: METOPROLOL SUCCINATE EXT REL 25 MG TABCR PO (08:02)
[2021-11-03] MEDS: FLUTICASONE/UMECLIDIN/VILANTER 200-62.5-25 MCG ELLIPTA 1 PUFF INHALATION (08:14)
[2021-11-03] MEDS: IPRATROPIUM BR 0.02% INH SOLN 0.5 MG/2.5 ML VIAL INHALATION ×4 (08:14→20:24)
[2021-11-03] MEDS: ALBUTEROL SULFATE NEB 2.5 MG/0.5 ML INH 5 MG INHALATION (08:14)
--- NOTE | 2021-11-03 09:12 | PM.CNPUL ---
Assessment and Plan Assessment and plan (1) COPD exacerbation: Code(s): J44.1 - Chronic obstructive pulmonary disease with (acute) exacerbation Status: Acute Assessment and Plan: 60-year-old man with a history of 68 pack year tobacco use who quit 6 years ago with severe apical predominant panlobular emphysema on his CT scan from 11/01/2021 presents now with worsening shortness of breath, phlegm production, wheezing over the last 3 months since being exposed to his live-in girlfriend who tested positive for COVID. I think he is having a COPD exacerbation. Regarding other etiologies for his symptoms the patient has a CT angiogram that is negative for pulmonary embolism and negative for any post COVID interstitial lung disease or organizing pneumonia. There are no focal infiltrates that would suggest a bacterial pneumonia. His COVID RT PCR test is negative. I will check a influenza swab. he had an echocardiogram and there is no evidence of left heart failure, severe mitral valve disease or pulmonary hypertension. He had an ABG of 7.47/28/75 on room air so there is no evidence of hypercarbic respiratory failure. I agree with treatment for a COPD exacerbation and he has improved clinically and still has mild wheezes today. I will increase his nebulizer frequency and place him on albuterol 2.5 mg nebs q.4 hours, ipratropium 0.5 mg nebs q.4 hours, I will decrease his Solu-Medrol from 60 mg Q 6 to 20 mg IV q.6. he has a leukocytosis of 24.4 today and I suspect this is related to his the high doses of Solu-Medrol. Patient is having a difficult time expectorating and he says that 6 years ago when he had a pneumonia they gave him a vest in the hospital and this worked very well. He has also used an Acapella flutter valve at home but this provides him minimal help. I will continue guaifenesin 600 mg p.o. q.12 hours. Will start a Cornet valve flutter device to help him expectorate. I will also initiate Pulmozyme 2.5 mg q.12 hours. the patient would benefit from a home vibratory vest apparatus as he has had multiple pneumonias in the last 3 months and these appear to be related I will continue azithromycin 500 mg IV q.day as he seems that since starting this last night this has helped his secretions today. Patient had an overnight oximetry with saturations less than 88% at [address] the patient on 1 L nasal cannula tonight and repeat an overnight oximetry. his oxygen should be increased until he achieves an overnight oximetry with time of saturation less than or equal to 88% at less than 5 minutes. Discussed with Libby Graham pulmonary inpatient services will resume on 11/06/2021. Call the on-call pulmonary physician with any questions. History of Present Illness History of Present Illness Consult date: 11/03/21 Requesting physician: Libby Graham, [employer] Reason for consult: COPD Chief complaint: COPD Exacerbation, Troponin Elevation Narrative: 11/03/2021: This is a new pulmonary consult for COPD exacerbation. 60-year-old man with a history of COPD (diagnosed 8 years ago with severe upper lobe predominant panlobular emphysema on his CT scan from 11/01/2021, I have no PFTs), unvaccinated for COVID and status post COVID pneumonia in and September of 2021, coronary artery disease status post stent approximately 10/29/21, Hypertension and hyperlipidemia. patient has a history of COPD rated related to past tobacco use. Patient smoked 2 packs per day from age [age] pack years. 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 Patient was exposed to secondhand smoke from both parents but none currently. Prior to 3 months ago patient states that he could walk an on limited distance. He states he could walk for miles. He would never really have any respiratory limitations in his activities of daily living unless he deve
--- NOTE | 2021-11-03 09:30 | PM.IMPN ---
Progress Note: A&P Additional Plan Assessment and plan (1) COPD (chronic obstructive pulmonary disease): Code(s): J44.9 - Chronic obstructive pulmonary disease, unspecified Status: Acute Assessment and Plan: - Not requiring supplemental Oxygen at this time, however, nocturnal oximetry showed that he needed to have O2 at night as he was below 88% for 10 minutes. Apnea link was ordered per Pulmonology and we will re-evaluate in the AM. The goal is to be no lower than 88%. If he is and it is less than 5 minutes, pt. will need 1L of oxygen and then the test repeated. If he is lower greater than 5 minutes, he will need 2L then repeat the test. Will re-evaluate this in the AM. - Solumedrol is decreased to 20 mg Q6 hrs. If doing better in AM, may switch to Prednisone 50 mg po and keep him at this dose until discharge from the hospital at which point he will need a taper. - Continue Guaifenesin for expectoration, encourage walking. - Check flu swab - Obtain Sputum culture - Pt. will need PD vest as outpatient and will need referral to Pulmonology clinic at discharge. Clinic number is [phone]. - He will be started on Pulmozyme today. - Continue Azithromycin for a total fo 5 days. Today is Day #2. - Start Acapella/Flutter valve today. - Dose of Albuterol/Ipratropium changed. - Reinforced with patient the absolute necessity to stay away from second hand smoke to prevent further lung injury. - Dr. Zamora cautions on discharging too early, Recommends the full treatment of Azithromycin unless pt's respiratory status is absolutely stellar. (2) Elevated troponin: Code(s): R77.8 - Other specified abnormalities of plasma proteins Status: Acute Assessment and Plan: - STEMI on SaturdayOctober 29. - Stented at [facility] in [place]. - Etiology of elevated troponin from oxygen demand due to COPD exacerbation vs. from recent STEMI. - Cardiology has consulted and believe the symptoms are due to the underlying COPD. - As pt. remains swollen in the BLE, Cardiology does order another dose of IV Lasix 20 mg. - Holding Beta Asuncion. (3) Hypertension: Code(s): I10 - Essential (primary) hypertension Status: Acute Assessment and Plan: - Continue home medications. (4) Leukocytosis: Code(s): D72.829 - Elevated white blood cell count, unspecified Status: Acute Assessment and Plan: - Etiology infectious vs. Pharmacological. Suspicion secondary to steroids. - CXR and CTA are negative for any acute infectious process in the lungs. - Continue to monitor daily. Subjective Date/time seen: 11/03/21 0750 This pt. was examined at the bedside in interval assessment. He has no new complaints today and states that he has continued dyspnea that is worse with moving around in the room. He is fine at rest he states, but still is not at his baseline. He shares with me that he really does not want to go home on supplemental oxygen, and cites, That will be the end of me. He has no complaints of CP, N/V/D. He was rounded on by Pulmonology and Dr. Perez has made recommendations for his treatment as outlined in the plan below. Review of Systems Review of Systems: A 12 point ROS is reviewed and is otherwise negative except for what is noted in HPI. All systems reviewed & are unremarkable except as noted in HPI and below Exam Narrative: Narrative: Constitutional: Patient is well-nourished in no acute distress. Patient is alert oriented x3 HEENT: Moist mucous membranes. No scleral icterus. No lymphadenopathy. Neck: No carotid bruits noted no JVD noted Lungs: Lung sounds are decreased to auscultation bilaterally. There is a prolonged expiratory phase with expiratory wheezing audible posteriorly and anteriorly. Cardiovascular: Apical pulse is regular rate and rhythm. S1-S2 noted, no S3 or S4 noted. No gallops, murmurs, or rubs noted. Abdomen: Soft, round, and nontender. No palpable masses. E
--- NOTE | 2021-11-03 10:10 | PM.PNCARD ---
Progress Note: A&P Assessment and Plan (1) Elevated troponin: Code(s): R77.8 - Other specified abnormalities of plasma proteins Status: Acute Assessment and Plan: Likely secondary to underlying severe COPD and dyspnea from COPD. I do not think this is from acute plaque rupture even though he recently had a ST-elevation myocardial infarction. (2) COPD exacerbation: Code(s): J44.1 - Chronic obstructive pulmonary disease with (acute) exacerbation Status: Acute Assessment and Plan: Further treatment per hospitalist/pulmonology but likely need steroids and nebulizers. He still has some mild lower extremity swelling and will give another dose of IV furosemide 20 mg x1 today. (3) Coronary disease: Code(s): I25.10 - Atherosclerotic heart disease of [place] coronary artery without angina pectoris Status: Acute Assessment and Plan: Recent STEMI with PCI to the circumflex. Previous PCI prior to STEMI also. Continue aspirin 81 mg p.o. daily, Brilinta 90 mg p.o. b.i.d., atorvastatin 80 mg daily. (4) Acute dyspnea: Code(s): R06.00 - Dyspnea, unspecified Status: Acute Assessment and Plan: Mostly related to underlying COPD exacerbation. He also refers to a sensation like something is stuck in his throat or but he cannot breathe and his upper airway. He actually may need a ENT evaluation (5) Hyperlipidemia: Code(s): E78.5 - Hyperlipidemia, unspecified Status: Acute Assessment and Plan: Continue high-dose statin (6) Hypertension: Code(s): I10 - Essential (primary) hypertension Status: Acute Assessment and Plan: Irbesartan 300 mg daily. (7) PND (paroxysmal nocturnal dyspnea): Code(s): R06.00 - Dyspnea, unspecified Status: Acute Assessment and Plan: Undoubtedly has sleep apnea. Apnea link performed last night, AHI 6. Should have outpatient sleep study. Subjective Date/time seen: 11/03/21 10:10 Interval history: 60-year-old admitted with elevated troponins and shortness of breath. Date of service 11/02/2021: Still feels like he has a lot of ?mucus?. He has no chest pain. Has shortness of breath and mild swelling. Date of service 11/03/2021: Feeling better today, breathing has improved and feels that he has less secretions. Denies any chest pain, palpitations. Does still have some LE edema. Review of Systems Review of Systems: All systems reviewed & are unremarkable except as noted in HPI and below Constitutional: Constitutional: Denies excessive sweating, Denies headache(s) and Denies weakness Eyes: Eyes: Denies blurry vision ENT: Reports Normal hearing present, Denies headache(s) and Denies neck pain Cardiovascular: Cardiovascular: Reports chest pain, Reports pedal edema, Reports leg edema and Reports dyspnea Respiratory: Respiratory: Reports dyspnea Gastrointestinal: Gastrointestinal: Denies abdominal pain Genitourinary: Genitourinary: Denies dysuria Musculoskeletal: Musculoskeletal: Denies neck pain Integumentary/Breasts: Skin/Breast: Denies dry skin Neurologic: Reports Normal hearing present, Denies headache(s) and Denies weakness Psychiatric: Psychiatric: Denies anxiety Endocrine: Endocrine: Denies excessive sweating Hematologic/Lymphatic: Hematologic/Lymphatic: Denies easy bleeding Allergic/Immunologic: Allergic/Immunologic: Denies GI upset with certain foods Exam Narrative: Patient awake alert oriented appears stated age Const: General: comfortable and no acute distress HENMT: General nose exam: Normal nares present Eyes: Sclera: sclerae normal Neck: Neck: supple and no JVD Resp: Auscultation: wheezes scattered wheezes and throughout Cardio: Rate: regular rate Rhythm: regular rhythm Heart sounds: no murmurs GI: Auscultation: normal bowel sounds Skin: General skin exam: normal color Neuro: Cranial nerves: Yes Normal hearing present Cognition
[2021-11-03 10:46] LABS: Influenza Control Positive
[2021-11-03] MEDS: FUROSEMIDE INJ 40 MG/4 ML VIAL 20 MG IV PUSH (11:14)
[2021-11-03] MEDS: methylPREDNISolone SOD SUCC 40 MG VIAL 20 MG IV PUSH ×2 (11:15→17:00)
[2021-11-03] MEDS: ALBUTEROL SULFATE NEB 2.5 MG/0.5 ML INH INHALATION ×3 (12:01→20:24)
--- NOTE | 2021-11-03 16:17 | PCRCNOTE ---
Pt is non compliant with 02 use and PEP therapy. When RT stated he needed to put the 02 back in nose after UPD treatment, pt stated 'I don't want to do that. I will put the 02 back in my nose when I feel like it.' When RT stated she would do his PEP therapy with him, pt stated 'I am not doing that.' RT informed pt that when he keeps his 02 off, his sats will drop. Pt stated he was aware. RT informed pt that PEP therapy would allow the pt to cough up more secretions. Pt stated he was aware. RT stated she would inform the MD and the pt stated that he 'did not care.'
[2021-11-03] MEDS: DORNASE ALFA INH SOLN 1 MG/ML 2.5 ML AMP 2.5 MG INHALATION (20:24)
[2021-11-04] VITALS (21 sets, daily range): BP systolic 111–131; BP diastolic 77–87; PULSE 68–112; RESP 16–20; TEMP 35.7–36.4; O2SAT 91–97
[2021-11-04] MEDS: methylPREDNISolone SOD SUCC 40 MG VIAL 20 MG IV PUSH ×2 (01:16→05:48)
[2021-11-04] MEDS: IPRATROPIUM BR 0.02% INH SOLN 0.5 MG/2.5 ML VIAL INHALATION ×5 (04:34→20:17)
[2021-11-04] MEDS: ALBUTEROL SULFATE NEB 2.5 MG/0.5 ML INH INHALATION ×5 (04:34→20:17)
[2021-11-04 05:04] LABS: Basophils Percent Auto 0.2 % (0.2-1.2); Hematocrit 45.4 % (42.0-52.0); Hemoglobin 15.5 g/dL (14.0-18.0); Immature Granulocyte Absolute 0.26 K/mm3 (0.00-0.031); Immature Granulocyte Percent A 1.3 % (0-0.5); Lymphocytes Absolute Auto 1.31 K/mm3 (0.9-3.2); Lymphocytes Percent Auto 6.5 % (18.3-44.2); Mean Corpuscular HGB Conc 34.1 g/dl (32-36); Mean Corpuscular Hemoglobin 31.5 pg (26-34); Mean Corpuscular Volume 92.3 fl (80-100); Mean Platelet Volume 12.1 fl (7.4-10.4); Monocytes Absolute Auto 1.3 K/mm3 (0.1-0.6); Monocytes Percent Auto 6.5 % (2.6-8.5); Neutrophils Absolute Auto 17.1 K/mm3 (1.3-6.7); Neutrophils Percent Auto 85.5 % (45.5-73.1); Platelet Count Result 168 k/mm3 (150-375); Red Blood Count 4.92 M/mm3 (4.6-6.20); Red Cell Distribution Width 13.6 % (11.5-14.5); White Blood Count 20.1 K/mm3 (4.5-10.0)
[2021-11-04 06:00] LABS: Anion Gap 4 mmol/L (8-16); Blood Urea Nitrogen 31 mg/dL (9-20); Calcium 8.4 mg/dL (8.4-10.2); Carbon Dioxide 30 mmol/L (22-30); Chloride 98 mmol/L (98-107); Estimated CRCL calculation 86 ml/min; Estimated Glomerular Filt Rate > 60; Glucose 136 mg/dL (65-110); Magnesium 2.5 mg/dL (1.6-2.3); Potassium 4.9 mmol/L (3.4-5.0); Sodium 132 mmol/L (137-145)
[2021-11-04] MEDS: DORNASE ALFA INH SOLN 1 MG/ML 2.5 ML AMP 2.5 MG INHALATION ×2 (08:39→20:17)
[2021-11-04] MEDS: ATORVASTATIN 40 MG TABLET 80 MG PO (09:04)
[2021-11-04] MEDS: ASPIRIN 81 MG ENTERIC TABLET PO (09:04)
[2021-11-04] MEDS: guaiFENesin 12 HR 600 MG TABCR PO ×2 (09:05→20:00)
[2021-11-04] MEDS: IRBESARTAN 150 MG TABLET 300 MG PO (09:05)
[2021-11-04] MEDS: METOPROLOL SUCCINATE EXT REL 25 MG TABCR PO (09:05)
[2021-11-04] MEDS: PANTOPRAZOLE 40 MG TABLET PO (09:05)
[2021-11-04] MEDS: TICAGRELOR 90 MG TABLET PO ×2 (09:06→20:00)
--- NOTE | 2021-11-04 09:55 | PM.IMPN ---
Progress Note: A&P Additional Plan Assessment and plan (1) COPD (chronic obstructive pulmonary disease): Code(s): J44.9 - Chronic obstructive pulmonary disease, unspecified Status: Acute Assessment and Plan: - Not requiring supplemental Oxygen at this time, however, nocturnal oximetry showed that he needed to have O2 at night as he was below 88% for 10 minutes. Apnea link was ordered per Pulmonology and we will re-evaluate in the AM. The goal is to be no lower than 88%. If he is and it is less than 5 minutes, pt. will need 1L of oxygen and then the test repeated. If he is lower greater than 5 minutes, he will need 2L then repeat the test. Will re-evaluate this in the AM. - Solumedrol is decreased to 20 mg Q6 hrs. If doing better in AM, may switch to Prednisone 50 mg po and keep him at this dose until discharge from the hospital at which point he will need a taper. - Continue Guaifenesin for expectoration, encourage walking. - Flu and Covid both negative. - Obtain Sputum culture - Pending. - Pt. will need PD vest as outpatient and will need referral to Pulmonology clinic at discharge. Clinic number is [phone]. - He will be started on Pulmozyme today. - Continue Azithromycin for a total of 5 days. Today is Day #3. - Doing well with Acapella/Flutter valve today. - Dose of Albuterol/Ipratropium was changed yesterday. - Reinforced with patient the absolute necessity to stay away from second hand smoke to prevent further lung injury. - Dr. Zamora cautions on discharging too early, Recommends the full treatment of Azithromycin unless pt's respiratory status is absolutely stellar. - Repeating patient's Apnealink evaluation as it is noted at the bottom of the report that pt. was actually on room air. (2) Elevated troponin: Code(s): R77.8 - Other specified abnormalities of plasma proteins Status: Acute Assessment and Plan: - STEMI on SaturdayOctober 29. - Stented at [facility] in [place]. - Etiology of elevated troponin from oxygen demand due to COPD exacerbation vs. from recent STEMI. - Cardiology has consulted and believe the symptoms are due to the underlying COPD. - Holding Beta Asuncion. - Cardiology recommends an outpatient sleep study. (3) Hypertension: Code(s): I10 - Essential (primary) hypertension Status: Acute Assessment and Plan: - Continue home medications. (4) Leukocytosis: Code(s): D72.829 - Elevated white blood cell count, unspecified Status: Acute Assessment and Plan: - Etiology infectious vs. Pharmacological. Suspicion secondary to steroids. - CXR and CTA are negative for any acute infectious process in the lungs. - Continue to monitor daily. Trending downward. Time Spent With Patient Time with patient: 15 - 25 minutes Subjective Date/time seen: 11/04/21 0810 This pt. was examined at the bedside in interval assessment. He reports to me today that whatever you guys are doing is working. He overall believes he is breathing some better. He has no new complaints of CP, dyspnea, productivity to his cough or any other complaints at this time. Pt. had apnealink test last night and it is noted at the bottom of the report that Pt. was on room air. It was clearly ordered by Dr. Zamora to have the patient on 1L of oxygen for the test and he was not. The test is re-ordered for tonight. I have spoken with Libby in respiratory therapy and she is going to make sure the correct oxygen level is applied as well as the pt's nurse, Ina will pass it on in report tonight. Review of Systems Review of Systems: Dyspnea is improving. A full 12 point ROS was completed and is otherwise negative with exception of what is noted in the HPI. All systems reviewed & are unremarkable except as noted in HPI and below Exam Narrative: Narrative: Constitutional: Patient is well-nourished in no acute distress. Patient is alert oriented x3 HEENT: Moist mucous membranes. N
--- NOTE | 2021-11-04 11:20 | PCRCNOTE ---
Pt had overnight oximetry study done on 11/03/21. Pt was on 1L of supplmental O2 via NC. The report originally loaded to his chart indicated that he was on RA. A revised version has been uploaded to his chart with the correct level of supplemental O2 indicated. MIGUEL ANGEL Prabhakar was notified of updated document.
--- NOTE | 2021-11-04 13:13 | PM.PNCARD ---
Progress Note: A&P Assessment and Plan (1) Bilateral lower extremity edema: Code(s): R60.0 - Localized edema Status: Acute Assessment and Plan: Persistent although patient does not appear to be in overt heart failure. EF 65-70% by echocardiogram. Will give additional IV Lasix 20 mg IV x1, patient states he like additional Lasix. Accurate input and output. Check BMP in a.m.. Electrolytes stable thus far. (2) Elevated troponin: Code(s): R77.8 - Other specified abnormalities of plasma proteins Status: Acute Assessment and Plan: Likely secondary to underlying severe COPD and dyspnea from COPD. I do not think this is from acute plaque rupture even though he recently had a ST-elevation myocardial infarction. (3) COPD exacerbation: Code(s): J44.1 - Chronic obstructive pulmonary disease with (acute) exacerbation Status: Acute Assessment and Plan: Further treatment per hospitalist/pulmonology but likely need steroids and nebulizers. He still has some mild lower extremity swelling and will give another dose of IV furosemide 20 mg x1 today. (4) Coronary disease: Qualifiers: Coronary Disease-Associated Artery/Lesion type: [place] artery [place] vs. transplanted heart: [place] heart Associated angina: without angina Qualified Code(s): I25.10 - Atherosclerotic heart disease of [place] coronary artery without angina pectoris Code(s): I25.10 - Atherosclerotic heart disease of [place] coronary artery without angina pectoris Status: Acute Assessment and Plan: Recent STEMI with PCI to the circumflex. Previous PCI prior to STEMI also. Continue aspirin 81 mg p.o. daily, Brilinta 90 mg p.o. b.i.d., atorvastatin 80 mg daily. (5) Hyperlipidemia: Qualifiers: Hyperlipidemia type: mixed hyperlipidemia Qualified Code(s): E78.2 - Mixed hyperlipidemia Code(s): E78.5 - Hyperlipidemia, unspecified Status: Acute Assessment and Plan: Continue high-dose statin (6) Hypertension: Qualifiers: Hypertension type: primary hypertension Qualified Code(s): I10 - Essential (primary) hypertension Code(s): I10 - Essential (primary) hypertension Status: Acute Assessment and Plan: Irbesartan 300 mg daily. (7) PND (paroxysmal nocturnal dyspnea): Code(s): R06.00 - Dyspnea, unspecified Status: Acute Assessment and Plan: Undoubtedly has sleep apnea. Outpatient sleep study. 1 L O2 nasal cannula at night defer to Pulmonary. Subjective Date/time seen: Date of service: 11/04/21 13:13 Interval history: 60-year-old seen in follow-up for recent STEMI at outside hospital, elevated troponins and shortness of breath. 11/02/2021: Still feels like he has a lot of ?mucus?. He has no chest pain. Has shortness of breath and mild swelling. 11/03/2021: Feeling better today, breathing has improved and feels that he has less secretions. Denies any chest pain, palpitations. Does still have some LE edema. 11/04/2021: States his breathing is much improved. O2 declines at night tolerate 1 L O2 nasal cannula otherwise fine at rest during day. No chest pain, dizziness or palpitations. No other issues overnight. Patient complained of persistent lower extremity edema but very happy with how much better he is doing with regards to his breathing. Review of Systems Review of Systems: All systems reviewed & are unremarkable except as noted in HPI and below Constitutional: Constitutional: Denies excessive sweating, Denies headache(s) and Denies weakness Eyes: Eyes: Denies blurry vision ENT: Reports Normal hearing present, Denies headache(s) and Denies neck pain Cardiovascular: Cardiovascular: Reports chest pain, Reports pedal edema, Reports leg edema and Reports dyspnea Respiratory: Respiratory: Reports dyspnea Gastrointestinal: Gastrointestinal: Denies abdominal pain Genitourinary: Genitourinary:
[2021-11-04] MEDS: FUROSEMIDE INJ 40 MG/4 ML VIAL 20 MG IV PUSH (16:51)
[2021-11-05] VITALS (27 sets, daily range): BP systolic 120–133; BP diastolic 77–90; PULSE 78–117; RESP 16–20; TEMP 35.9–36.4; O2SAT 92–99
[2021-11-05] MEDS: ALBUTEROL SULFATE NEB 2.5 MG/0.5 ML INH INHALATION ×6 (00:01→20:47)
[2021-11-05] MEDS: IPRATROPIUM BR 0.02% INH SOLN 0.5 MG/2.5 ML VIAL INHALATION ×6 (00:01→20:46)
[2021-11-05] MEDS: ACETAMINOPHEN 325 MG TABLET 650 MG PO (03:46)
[2021-11-05] MEDS: predniSONE 40 MG, predniSONE 10 MG 50 MG PO (07:39)
[2021-11-05] MEDS: DORNASE ALFA INH SOLN 1 MG/ML 2.5 ML AMP 2.5 MG INHALATION ×2 (08:12→20:49)
[2021-11-05] MEDS: IRBESARTAN 150 MG TABLET 300 MG PO (09:05)
[2021-11-05] MEDS: guaiFENesin 12 HR 600 MG TABCR PO ×2 (09:06→20:19)
[2021-11-05] MEDS: PANTOPRAZOLE 40 MG TABLET PO (09:06)
[2021-11-05] MEDS: ASPIRIN 81 MG ENTERIC TABLET PO (09:06)
[2021-11-05] MEDS: ATORVASTATIN 40 MG TABLET 80 MG PO (09:06)
[2021-11-05] MEDS: METOPROLOL SUCCINATE EXT REL 25 MG TABCR PO (09:06)
[2021-11-05] MEDS: TICAGRELOR 90 MG TABLET PO ×2 (09:06→20:19)
[2021-11-05 09:28] LABS: Anion Gap 7 mmol/L (8-16); Blood Urea Nitrogen 28 mg/dL (9-20); Calcium 8.1 mg/dL (8.4-10.2); Carbon Dioxide 27 mmol/L (22-30); Chloride 99 mmol/L (98-107); Estimated CRCL calculation 82 ml/min; Estimated Glomerular Filt Rate > 60; Glucose 165 mg/dL (65-110); Potassium 3.6 mmol/L (3.4-5.0); Sodium 133 mmol/L (137-145)
[2021-11-05] MEDS: LIDOCAINE 5% PATCH 2 PATCH TRANSDERM (09:30)
--- NOTE | 2021-11-05 09:50 | PM.PNCARD ---
Progress Note: A&P Assessment and Plan (1) Bilateral lower extremity edema: Code(s): R60.0 - Localized edema Status: Acute Assessment and Plan: Patient reports years long history chronic lower extremity edema. Explained how resolution of edema is not a reasonable goal. Edema fairly stable compared to that which he experienced as an outpatient without diuretics. -No additional diuretics today. If symptoms significantly worsened breathing consider discharge on under least 20 mg Lasix daily if appropriate. -Patient, however, is not in overt decompensated heart failure. EF 65-70% by echocardiogram. -Accurate input and output. Check BMP in a.m.. Electrolytes stable thus far. (2) Elevated troponin: Code(s): R77.8 - Other specified abnormalities of plasma proteins Status: Acute Assessment and Plan: Likely secondary to underlying severe COPD and dyspnea from COPD. I do not think this is from acute plaque rupture even though he recently had a ST-elevation myocardial infarction. (3) COPD exacerbation: Code(s): J44.1 - Chronic obstructive pulmonary disease with (acute) exacerbation Status: Acute Assessment and Plan: Further treatment per hospitalist/pulmonology but likely need steroids and nebulizers. He still has some mild lower extremity swelling and will give another dose of IV furosemide 20 mg x1 today. (4) Coronary disease: Qualifiers: Associated angina: without angina Coronary Disease-Associated Artery/Lesion type: [place] artery [place] vs. transplanted heart: [place] heart Qualified Code(s): I25.10 - Atherosclerotic heart disease of [place] coronary artery without angina pectoris Code(s): I25.10 - Atherosclerotic heart disease of [place] coronary artery without angina pectoris Status: Acute Assessment and Plan: Recent STEMI with PCI to the circumflex. Previous PCI prior to STEMI also. Continue aspirin 81 mg p.o. daily, Brilinta 90 mg p.o. b.i.d., atorvastatin 80 mg daily. (5) Hyperlipidemia: Qualifiers: Hyperlipidemia type: mixed hyperlipidemia Qualified Code(s): E78.2 - Mixed hyperlipidemia Code(s): E78.5 - Hyperlipidemia, unspecified Status: Acute Assessment and Plan: Continue high-dose statin (6) Hypertension: Qualifiers: Hypertension type: primary hypertension Qualified Code(s): I10 - Essential (primary) hypertension Code(s): I10 - Essential (primary) hypertension Status: Acute Assessment and Plan: Reasonably controlled. Irbesartan 300 mg daily. (7) PND (paroxysmal nocturnal dyspnea): Code(s): R06.00 - Dyspnea, unspecified Status: Acute Assessment and Plan: Undoubtedly has sleep apnea. Outpatient sleep study. 1 L O2 nasal cannula at night, defer to Pulmonary. Subjective Date/time seen: Date of service: 11/05/21 09:50 Interval history: 60-year-old seen in follow-up for recent STEMI at outside hospital, elevated troponins and shortness of breath. 11/02/2021: Still feels like he has a lot of ?mucus?. He has no chest pain. Has shortness of breath and mild swelling. 11/03/2021: Feeling better today, breathing has improved and feels that he has less secretions. Denies any chest pain, palpitations. Does still have some LE edema. 11/04/2021: States his breathing is much improved. O2 declines at night tolerate 1 L O2 nasal cannula otherwise fine at rest during day. No chest pain, dizziness or palpitations. No other issues overnight. Patient complained of persistent lower extremity edema but very happy with how much better he is doing with regards to his breathing. 11/05/2021: Patient reports she has chronic lower extremity edema. Notes slight improvement this morning but admits he always has edema for years now. He described how for years he would buy his shoes in the afternoon to accommodate for late day swelling as otherwise they w
--- NOTE | 2021-11-05 12:02 | PC.NURSE ---
Patient has been anxious this morning, stating he just doesn't feel right . Vitals were checked and were normal. Oxygen checked multiple times throughout the morning and was 95% or greater. Pt stated he felt like this previously when he was on steroids but is anxious.
--- NOTE | 2021-11-05 12:19 | PM.IMPN ---
Progress Note: A&P Assessment and Plan (1) Knee pain, bilateral: Code(s): M25.561 - Pain in right knee; M25.562 - Pain in left knee Status: Chronic Assessment and Plan: - Secondary to the Osteoarthritis. (2) Osteoarthritis: Code(s): M19.90 - Unspecified osteoarthritis, unspecified site Status: Chronic Assessment and Plan: - As evidenced by plain film X-rays. - Continue Tylenol prn, Tramadol prn is added and so is Lidocaine patches to both knees. Additional Plan Assessment and plan (1) COPD (chronic obstructive pulmonary disease): Code(s): J44.9 - Chronic obstructive pulmonary disease, unspecified Status: Acute Assessment and Plan: - Not requiring supplemental Oxygen at this time, however, nocturnal oximetry showed that he needed to have O2 at night as he was below 88% for 10 minutes. Apnea link was ordered per Pulmonology and we will re-evaluate in the AM. The goal is to be no lower than 88%. If he is and it is less than 5 minutes, pt. will need 1L of oxygen and then the test repeated. If he is lower greater than 5 minutes, he will need 2L then repeat the test. Will re-evaluate this in the AM. - Continue Prednisone at 50 mg po daily and will begin taper tomorrow at discharge. - Continue Guaifenesin for expectoration, encourage walking. - Flu and Covid both negative. - Obtain Sputum culture - Pending. - Pt. will need PD vest as outpatient and will need referral to Pulmonology clinic at discharge. Clinic number is [phone]. - He will be started on Pulmozyme today. - Continue Azithromycin for a total of 5 days. Today is Day #4. Will receive fifth dose tomorrow prior to discharge. - Doing well with Acapella/Flutter valve today. - Dose of Albuterol/Ipratropium was changed yesterday. - Reinforced with patient the absolute necessity to stay away from second hand smoke to prevent further lung injury. - Dr. Zamora cautions on discharging too early, Recommends the full treatment of Azithromycin unless pt's respiratory status is absolutely stellar. - Patient's apnealink was reviewed again with the Respiratory therapist who controlled it, and verified that the patient was in fact on 1L of oxygen during the test that he had no desaturations. Respiratory care was notified of the need for Home Oxygen evaluation in preparation for him to have oxygen tomorrow for discharge. (2) Elevated troponin: Code(s): R77.8 - Other specified abnormalities of plasma proteins Status: Acute Assessment and Plan: - STEMI on SaturdayOctober 29. - Stented at [facility] in [place]. - Etiology of elevated troponin from oxygen demand due to COPD exacerbation vs. from recent STEMI. - Cardiology has consulted and believe the symptoms are due to the underlying COPD. - Holding Beta [place]uncion. - Cardiology recommends an outpatient sleep study. (3) Hypertension: Code(s): I10 - Essential (primary) hypertension Status: Acute Assessment and Plan: - Continue home medications. (4) Leukocytosis: Code(s): D72.829 - Elevated white blood cell count, unspecified Status: Acute Assessment and Plan: - Etiology infectious vs. Pharmacological. Suspicion secondary to steroids. - CXR and CTA are negative for any acute infectious process in the lungs. - Continue to monitor daily. Trending downward. Time Spent With Patient Time with patient: 15 - 25 minutes Subjective Date/time seen: 11/05/21 0810 This pt. was examined at the bedside today in interval assessment. He is improving and feels that he is almost back to his baseline with regards to breathing. His only complaints today are his knees feeling sore and hurting. He has not had any acute injury. He has taken Tylenol and it still persists citing the only thing that makes it feel better is walking around. Imaging is performed today with plain film x-rays that show osteoarthritis in both knees. He was ordered Lidocaine patches
[2021-11-05] MEDS: ALPRAZolam (*CRX) 0.5 MG TABLET PO (12:56)
--- NOTE | 2021-11-05 15:29 | PCRCNOTE ---
Evaluated pt for home O2, RT walked with pt and pt did not meet requirements for activity O2, but due to the apnea link results the pt will require NOC O2 set up at home.
[2021-11-06] VITALS (7 sets, daily range): BP systolic 141; BP diastolic 98; PULSE 90–100; RESP 20; TEMP 35.8; O2SAT 97
[2021-11-06] MEDS: ALBUTEROL SULFATE NEB 2.5 MG/0.5 ML INH INHALATION ×4 (00:07→10:23)
[2021-11-06] MEDS: IPRATROPIUM BR 0.02% INH SOLN 0.5 MG/2.5 ML VIAL INHALATION ×4 (00:07→10:23)
[2021-11-06 05:13] LABS: Basophils Absolute Auto 0.1 K/mm3 (0.0-0.1); Basophils Percent Auto 0.3 % (0.2-1.2); Eosinophils Absolute Auto 0.1 K/mm3 (0-0.3); Eosinophils Percent Auto 0.4 % (0-4.4); Hematocrit 45.8 % (42.0-52.0); Hemoglobin 15.4 g/dL (14.0-18.0); Immature Granulocyte Absolute 0.29 K/mm3 (0.00-0.031); Immature Granulocyte Percent A 1.8 % (0-0.5); Lymphocytes Absolute Auto 2.63 K/mm3 (0.9-3.2); Lymphocytes Percent Auto 16.6 % (18.3-44.2); Mean Corpuscular HGB Conc 33.6 g/dl (32-36); Mean Corpuscular Hemoglobin 31.9 pg (26-34); Mean Corpuscular Volume 94.8 fl (80-100); Mean Platelet Volume 12.4 fl (7.4-10.4); Monocytes Absolute Auto 1.1 K/mm3 (0.1-0.6); Monocytes Percent Auto 7.2 % (2.6-8.5); Neutrophils Absolute Auto 11.6 K/mm3 (1.3-6.7); Neutrophils Percent Auto 73.7 % (45.5-73.1); Platelet Count Result 154 k/mm3 (150-375); Red Blood Count 4.83 M/mm3 (4.6-6.20); Red Cell Distribution Width 13.6 % (11.5-14.5); White Blood Count 15.8 K/mm3 (4.5-10.0)
[2021-11-06 05:28] LABS: Alanine Aminotransferase 67 U/L (4-50); Albumin Level 3.9 g/dL (3.5-5.1); Alkaline Phosphatase 77 U/L (38-126); Anion Gap 8 mmol/L (8-16); Aspartate Amino Transferase 37 U/L (17-59); Bilirubin,Total 0.7 mg/dL (0.2-1.3); Blood Urea Nitrogen 24 mg/dL (9-20); Calcium 8.2 mg/dL (8.4-10.2); Carbon Dioxide 27 mmol/L (22-30); Chloride 99 mmol/L (98-107); Estimated CRCL calculation 108 ml/min; Estimated Glomerular Filt Rate > 60; Glucose 93 mg/dL (65-110); Magnesium 2.4 mg/dL (1.6-2.3); Sodium 134 mmol/L (137-145)
[2021-11-06] MEDS: TICAGRELOR 90 MG TABLET PO (08:51)
[2021-11-06] MEDS: METOPROLOL SUCCINATE EXT REL 25 MG TABCR PO (08:51)
[2021-11-06] MEDS: guaiFENesin 12 HR 600 MG TABCR PO (08:51)
[2021-11-06] MEDS: PANTOPRAZOLE 40 MG TABLET PO (08:51)
[2021-11-06] MEDS: predniSONE 40 MG, predniSONE 10 MG 50 MG PO (08:51)
[2021-11-06] MEDS: ATORVASTATIN 40 MG TABLET 80 MG PO (08:51)
[2021-11-06] MEDS: ASPIRIN 81 MG ENTERIC TABLET PO (08:52)
[2021-11-06] MEDS: ALPRAZolam (*CRX) 0.5 MG TABLET PO (08:52)
[2021-11-06] MEDS: IRBESARTAN 150 MG TABLET 300 MG PO (08:52)
[2021-11-06] MEDS: LIDOCAINE 5% PATCH 2 PATCH TRANSDERM (08:52)
[2021-11-06] MEDS: DORNASE ALFA INH SOLN 1 MG/ML 2.5 ML AMP 2.5 MG INHALATION (09:12)
--- NOTE | 2021-11-06 09:12 | PCRCNOTE ---
pt not in room, checked back several times.
--- NOTE | 2021-11-06 09:45 | PCRCNOTE ---
SET UP NOCTURNAL HOME WITH [facility]. PLEASE CALL [phone] WHEN D/C TO ARRANGE SET UP IN HOME. THEY ARE ALSO TRYING TO GET VEST THERAPY APPROVED FOR PT TO USE IN HOME.RN NOTIFIED.
[2021-11-06] MEDS: BUDESONIDE RESPULE NEB 0.5 MG/2 ML AMP (10:23)
[2021-11-06] MEDS: ACETYLCYSTEINE 20% INHAL SOLN 800 MG/4 ML VIAL 200 MG INHALATION (10:23)
--- NOTE | 2021-11-06 11:05 | PM.DS ---
DS: Admitting Diagnosis Discharge Date 11/06/2021 Admitting Diagnosis 1) COPD 2) Elevated Troponin 3) Hypertension 4) Leukocytosis DS: Discharge Diagnosis Discharge Diagnosis (1) COPD (chronic obstructive pulmonary disease): Code(s): J44.9 - Chronic obstructive pulmonary disease, unspecified Status: Acute Assessment and Plan: - Apnealink showed that pt. needs 1L supplemental home oxygen at night. Respiratory setting up. - Continue Prednisone 40 mg at home for [address] Perez. - Continue Guaifenesin for expectoration, encourage walking. - Flu and Covid both negative. - Obtain Sputum culture - Pt. was not able to provide. - Respiratory setting up Oscillating vest for patient and will need referral to Pulmonology clinic at discharge. Clinic number is [phone]. - Did well with Pulmozyme, however, the cost for this drug is $4,000/month. Mucomyst is covered and pt. will be discharged home on it. A trial was dose was performed here to make sure pt. didn't have bronchospasm, and he did not. He will have a script for discharge. - Completed 5 full days of Azithromycin. - Reinforced with patient the absolute necessity to stay away from second hand smoke to prevent further lung injury. DS: Summary Hospital Course Reason for hospitalization: Dyspnea and Chest Pain Hospital Course: This 60 year old male patient with a significant PMH of recent IA status post stenting, Severe COPD, CAD, Dyslipidemia, HTN and is a former tobacco user. He presented to the ER here at [facility] on 11/01/21 with complaints of having increased dyspnea, and a feeling that he had mucous caught in his airway making his breathing worse. He states at home that his pulse Oximeter at home was showing 82% on room air with ambulation. At the time of presentation he was on steroids and abx for treatment of a COPD exacerbation and it was not working. PT. was admitted, evaluated and treated for his complaints. The pt. was evaluated by both myself and Dr. Perez from Pulmonology. Pt. will need 1L home oxygen at and also will be set up with an Oscillation vest as outpatient. He received a full course of Azithromycin while here and has improved with his breathing significantly. He will be establishing with Dr. Perez as an outpatient upon discharge. Also while hospitalized he complained of knee pain and that was imaged and showed Bilateral OA. His pain was treated to his satisfaction with Tramadol, Tylenol and Lidocaine patches. He will be referred to his PCP for further workup and treatment of his knee pain. Pt. will have Mucomist on discharge for his pulmonary maintenance as well. His insurance will cover according to care coordination. Pt. was also evaluated by Cardiology while here due to his recent IA and they had no additional recommendations for evaluation or treatment. Pt. is stable for discharge to home at this time as he has remained asymptomatic while here. Time spent discussing smoking cessation with patient: more than 10 minutes Status at Discharge Functional status at discharge: independent ambulation Overall status at discharge: patient is back to baseline Time Spent with Patient Time attestation: Total time spent providing and/or coordinating discharge services: 40 minutes Time spent: Greater than 30 minutes Exam Narrative: Constitutional: Patient is well-nourished in no acute distress. Patient is alert oriented x3 HEENT: Moist mucous membranes. No scleral icterus. No lymphadenopathy. Neck: No carotid bruits noted no JVD noted Lungs: Lung sounds are decreased to auscultation bilaterally. No accessory muscle use. No rhonchi, rales, or wheezes noted. Cardiovascular: Apical pulse is regular rate and rhythm. S1-S2 noted, no S3 or S4 noted. No gallops, murmurs, or rubs noted. Abdomen: Soft, round, and nontender. No palpable masses. Extremities: No edema. Nontender. Skin: No rashes or lesions. Warm and dry. Skin is intact. Neurological:
--- NOTE | 2021-11-06 12:02 | PM.PNPUL ---
Progress Note: A&P Assessment and Plan (1) COPD exacerbation: Code(s): J44.1 - Chronic obstructive pulmonary disease with (acute) exacerbation Status: Acute Assessment and Plan: 60-year-old man with a history of 68 pack year tobacco use who quit 6 years ago with severe apical predominant panlobular emphysema on his CT scan from 11/01/2021 presents now with worsening shortness of breath, phlegm production, wheezing over the last 3 months since being exposed to his live-in girlfriend who tested positive for COVID. I think he is having a COPD exacerbation. Regarding other etiologies for his symptoms the patient has a CT angiogram that is negative for pulmonary embolism and negative for any post COVID interstitial lung disease or organizing pneumonia. There are no focal infiltrates that would suggest a bacterial pneumonia. His COVID RT PCR test is negative. I will check a influenza swab. he had an echocardiogram and there is no evidence of left heart failure, severe mitral valve disease or pulmonary hypertension. He had an ABG of 7.47/28/75 on room air so there is no evidence of hypercarbic respiratory failure. I agree with treatment for a COPD exacerbation and he has improved clinically and still has mild wheezes today. I will increase his nebulizer frequency and place him on albuterol 2.5 mg nebs q.4 hours, ipratropium 0.5 mg nebs q.4 hours, I will decrease his Solu-Medrol from 60 mg Q 6 to 20 mg IV q.6. he has a leukocytosis of 24.4 today and I suspect this is related to his the high doses of Solu-Medrol. Patient is having a difficult time expectorating and he says that 6 years ago when he had a pneumonia they gave him a vest in the hospital and this worked very well. He has also used an Acapella flutter valve at home but this provides him minimal help. I will continue guaifenesin 600 mg p.o. q.12 hours. Will start a [place]et valve flutter device to help him expectorate. I will also initiate Pulmozyme 2.5 mg q.12 hours. the patient would benefit from a home vibratory vest apparatus as he has had multiple pneumonias in the last 3 months and these appear to be related I will continue azithromycin 500 mg IV q.day as he seems that since starting this last night this has helped his secretions today. Patient had an overnight oximetry with saturations less than 88% at [address] the patient on 1 L nasal cannula tonight and repeat an overnight oximetry. his oxygen should be increased until he achieves an overnight oximetry with time of saturation less than or equal to 88% at less than 5 minutes. 11/06 The patient tells me is breathing better today than he has in the last year. He has no phlegm production. His room air sats are at 92%. Patient had an overnight oximetry on 1 L nasal cannula on 11/03 demonstrating average saturation 96%, low saturation 90%, time with saturation less than or equal to 88% was 0 minutes. Patient states the Pulmozyme nebulizer has helped him with his phlegm. He had a home O2 assessment on 11/05 and does not need exercise with rest or with ambulation. He is ready for discharge. Finished day 5 of azithromycin. we called the pharmacy and Pulmozyme is not covered by his insurance but Mucomyst is. I will give him a 1 dose trial of Mucomyst to make sure there is no bronchospasm and if not I will discharge him on this t.i.d.. patient has severe COPD with chronic bronchitis and has had multiple admissions over the last year and multiple outpatient episodes of bronchitis treated with steroids and antibiotics. He has difficulty expectorating his sputum and he would benefit from a vibratory vest. Patient is ready to be discharged home from a pulmonary perspective on these pulmonary medicines. Prednisone 40 mg p.o. q.day times for 3 days trelegy inhaler 200-60 2.5-25 at 1 puff q.day. Rescue albuterol nebulizer and inhaler q.4 hours p.r.n. shortness of breath or wheezing no oxygen at rest or w
== END 2021-11-06 12:10 | disposition home or self-care (01) | DRG 140 ==
LOC: ANHED 11:49 → ANHIMU 14:24 → ANH2MED 11-02 17:02
PROVIDERS: Internal Medicine Cardiovascular Disease; Internal Medicine Pulmonary Disease; Nurse Practitioner Adult Health; Admitting Provider Family Medicine; Emergency Provider Emergency Medicine; PCP Internal Medicine; Visit Provider Nurse Practitioner Adult Health
DX: J44.1 Chronic obstructive pulmonary disease with (acute) exacerbation (principal); I21.3 ST elevation (STEMI) myocardial infarction of unspecified site; I25.10 Atherosclerotic heart disease of native coronary artery without angina pectoris; R77.8 Other specified abnormalities of plasma proteins; I10 Essential (primary) hypertension; R60.0 Localized edema; D72.829 Elevated white blood cell count, unspecified; E78.2 Mixed hyperlipidemia; M17.0 Bilateral primary osteoarthritis of knee; Z20.822 Contact with and (suspected) exposure to COVID-19; Z86.16 Personal history of COVID-19; Z79.82 Long term (current) use of aspirin; Z79.899 Other long term (current) drug therapy; Z87.891 Personal history of nicotine dependence; Z95.5 Presence of coronary angioplasty implant and graft
CPT/HCPCS: 36415; 36600; 71046; 71275; 73560; 80048; 80053; 82805; 83735; 83880; 84484; 85025; 85610; 85730; 87804; 93005; 93306; 94618; 94640; 94667; 94762; 96361; 96365; 96372; 96374; 96375; 96376; 99285; A9270; C9803; G0378; G0379; J0456; J1650; J1940; J2920; J2930; J7040; J7512; Q9967; U0003; U0005

== ENCOUNTER 2021-11-15 08:27 | Observation (INO) | payer OTHER, SELFPAY ==
[2021-11-15] VITALS (22 sets, daily range): BP systolic 94–143; BP diastolic 72–96; PULSE 85–116; RESP 17–30; TEMP 36.6–37.3; O2SAT 92–98; BMI 27.9
--- NOTE | ~2021-11-15 | XR_ITS ---
XR chest 1V portable DATE: 11/15/2021 18:51 INDICATION: Chest pain TECHNIQUE: Portable AP chest on 11/15/2021 1846 hours COMPARISON: 11/15/2021 portable AP chest at 0849 hours 11/01/2021 CTA chest 11/01/2021 PA and lateral chest FINDINGS: There is bilateral hyperinflation suggesting COPD. Chronic right apical and upper lobe fibrocalcific scarring. Mild left apical scarring. No pulmonary infiltrate or consolidation, pleural effusion, pulmonary vascular congestion or pneumoth orax or other significant change since 11/01/2021 is evident. IMPRESSION: No significant change since 11/01/2021 Reviewed, dictated and finalized at location A.
--- NOTE | ~2021-11-15 | XR_ITS ---
EXAMINATION: XR chest 1V portable DATE: 11/15/2021 08:53 INDICATION: Chest pain. COPD. TECHNIQUE: frontal view of the chest was obtained. COMPARISON: Chest radiograph and CT dated 11/01/2021 FINDINGS: Opacities at bilateral apices, more prominent on the right where there are multiple associated small calcified pulmonary nodules likely sequela of old granulomatous disease. Increased lucency and joyce ectural distortion in the paramediastinal right upper lobe corresponding to moderate emphysema better appreciated on prior CT. No pulmonary edema, pleural effusion or pneumothorax. The cardiomediastinal silhouette is normal. IMPRESSION: 1. Stable appearance of emphysema with prominent right-sided predominant biapical pleural-parenchymal scarring with associated calcified nodules likely sequela of old granulomatous disease. No acute car diopulmonary disease. Reviewed, dictated and finalized at location A. IMPRESSION: 1. Stable appearance of emphysema with prominent right-sided predominant biapic al pleural-parenchymal scarring with associated calcified nodules likely sequel a of old granulomatous disease. No acute cardiopulmonary disease.
--- NOTE | 2021-11-15 08:28 | ECG_ITS ---
Measurements Intervals [place] Rate: 110 P: 79 NH: 156 QRS: 76 QRSD: 83 T: 88 QT: 304 QTc: 412 Interpretive Statements SINUS TACHYCARDIA POSSIBLE LEFT ATRIAL ENLARGEMENT [-0.1mV P WAVE IN V1/V2] ABNORMAL RHYTHM ECG COMPARED TO ECG 11/02/2021 10:11:41 NO SIGNIFICANT CHANGES Electronically Signed On 11-15-2021 13:03:33 CDT by Anabell Dumont M.D.
[2021-11-15 08:44] LABS: Basophils Absolute Auto 0.1 K/mm3 (0.0-0.1); Basophils Percent Auto 0.5 % (0.2-1.2); Eosinophils Absolute Auto 0.6 K/mm3 (0-0.3); Eosinophils Percent Auto 4.4 % (0-4.4); Hematocrit 41.4 % (42.0-52.0); Hemoglobin 14.2 g/dL (14.0-18.0); Immature Granulocyte Absolute 0.11 K/mm3 (0.00-0.031); Immature Granulocyte Percent A 0.8 % (0-0.5); Lymphocytes Absolute Auto 2.93 K/mm3 (0.9-3.2); Lymphocytes Percent Auto 21.4 % (18.3-44.2); Mean Corpuscular HGB Conc 34.3 g/dl (32-36); Mean Corpuscular Hemoglobin 32.7 pg (26-34); Mean Corpuscular Volume 95.4 fl (80-100); Mean Platelet Volume 11.8 fl (7.4-10.4); Monocytes Absolute Auto 1.2 K/mm3 (0.1-0.6); Monocytes Percent Auto 8.5 % (2.6-8.5); Neutrophils Absolute Auto 8.8 K/mm3 (1.3-6.7); Neutrophils Percent Auto 64.4 % (45.5-73.1); Platelet Count Result 117 k/mm3 (150-375); Red Blood Count 4.34 M/mm3 (4.6-6.20); Red Cell Distribution Width 13.9 % (11.5-14.5); White Blood Count 13.7 K/mm3 (4.5-10.0)
--- NOTE | 2021-11-15 08:48 | ED.CHESTPAIN ---
HPI - Chest Pain General Chief Complaint: Chest Pain Stated Complaint: Chest Pain Time Seen by Provider: 11/15/21 08:44 Source: patient Limitations: no limitations History of Present Illness HPI narrative: Patient is 60 years old white male presented to the ED with chest heaviness started 2 to 3 days ago, currently 8 out of 10. Patient denies any aggravating or relieving factors. History of coronary stents x2, last one was about 3 weeks ago. Patient denies any fever, chills, nausea, vomiting, back pain. Related Data Home Medications Medication Instructions Recorded Confirmed Trelegy Ellipta 1 inh INHALATION DAILY 11/01/21 11/01/21 albuterol sulfate [Proventil HFA] 2 puff INHALATION Q6H 11/01/21 11/01/21 aspirin 81 mg PO DAILY 11/01/21 11/01/21 atorvastatin 80 mg PO DAILY 11/01/21 11/01/21 ipratropium-albuterol 3 ml INHALATION Q6H PRN 11/01/21 11/01/21 irbesartan 300 mg PO DAILY 11/01/21 11/01/21 metoprolol succinate 25 mg PO DAILY 11/01/21 11/01/21 nitroglycerin 0.4 mg SUBLINGUAL Q5MIN 11/01/21 11/01/21 pantoprazole 40 mg PO DAILY 11/01/21 11/01/21 ticagrelor 90 mg PO Q12H 11/01/21 11/01/21 Allergies Allergy/AdvReac Type Severity Reaction Status Date / Time NKDA Allergy Mild Other Uncoded 11/15/21 08:38 Review of Systems Review of Systems: CONSTITUTIONAL: Denies fever, chills, or sweats. EYES: Denies visual changes, redness, or discharge. ENT: Denies rhinorrhea, congestion, sore throat, or otalgia. CARDIOVASCULAR: Complaining of chest pain RESPIRATORY: Denies cough or dyspnea. GASTROINTESTINAL: Denies abdominal pain, nausea, vomiting, or diarrhea. GENITOURINARY: Denies dysuria or hematuria. SKIN: Denies rash or itching. MUSCULOSKELETAL: Denies back pain, joint pain, or myalgia. NEUROLOGIC: Denies headache, numbness, or weakness. PSYCHIATRIC: Denies anxiety or depression. [facility] Past Medical History Medical History COPD (chronic obstructive pulmonary disease) COPD (chronic obstructive pulmonary disease) Coronary disease Dyslipidemia Former tobacco use Hypertension Family History Family History Father Acute myocardial infarction Social History Social History Smoking packs per day: 2 Smoking cigarettes per day: 40.0 Years smoked: 40 Smoking pack-years: 80.00 Smoking status: Former smoker Spiritual care concerns: No Exam Narrative: General appearance: Well-developed, well-nourished Skin: Normal color Head: Normocephalic, nontraumatic Eyes: Clear conjunctiva ENT: Oropharynx normal, ears normal, nose normal Neck: Supple, nontender Chest and respiratory: Airway patent, no respiratory distress, no accessory muscle use Heart: Regular rate/rhythm Abdomen: Soft, nontender, no organomegaly, quiet bowel sounds Vascular: Normal peripheral pulses, normal capillary refill. Musculoskeletal: Normal range of motion, nontender back Neurologic: Alert and oriented ?3, [employer] is normal as tested, no gross motor deficit Course Course Emergency Course: Stable Consultations Consultation #1: Dr. Guerrero Date: 11/15/21 Time: 10:41 Vital Signs Vital signs: Vital Signs Temperature 36.6 C 11/15/21 08:31 Pulse Rate 116 H 11/15/21 08:31 Respiratory Rate 20 11/15/21 08:31 Blood Pressure 143/84 H 11/15/21 08:31 Pulse Oximetry 98 11/15/21 08:31 Temperature 36.6 C 11/15/21 08:31 Pulse Rate 116 H 11/15/21 08:31 Respiratory Rate 20 11/15/21 08:31 Blood Pressure 143/84 H 11/15/21 08:31 Pulse Oximetry 98 11/15/21 08:31 MDM - Chest Pain MDM Narrati
[2021-11-15 08:58] LABS: Alanine Aminotransferase 66 U/L (4-50); Albumin Level 4.1 g/dL (3.5-5.1); Alkaline Phosphatase 92 U/L (38-126); Anion Gap 6 mmol/L (8-16); Aspartate Amino Transferase 34 U/L (17-59); Bilirubin,Total 0.9 mg/dL (0.2-1.3); Blood Urea Nitrogen 18 mg/dL (9-20); Calcium 8.8 mg/dL (8.4-10.2); Carbon Dioxide 29 mmol/L (22-30); Chloride 100 mmol/L (98-107); Estimated CRCL calculation 86 ml/min; Estimated Glomerular Filt Rate > 60; Glucose 120 mg/dL (65-110); Lipase 119 U/L (23-300); Sodium 135 mmol/L (137-145)
[2021-11-15 09:00] LABS: INR 0.9; Prothrombin Time 11.8 Seconds (11.1-14.7)
[2021-11-15 09:01] LABS: Partial Thromboplastin Time 26.4 SECONDS (22.3-36.8)
[2021-11-15 09:07] LABS: Alveolar/Arterial O2 Gradient 49.2 mmHg; Base Excess ABG -1.1 mEq/l (+/-2.0); Fractional Inspired Oxygen 21 %; HCO3 ABG 21.7 mEq/l (22.0-26.0); Oxygen Content ABG 18.7 %vol (16.0-22.0); Oxygen Saturation ABG 93.6 % (95.0-100.0); Oxyhemoglobin 92.4 % THb (90.0-100.0); PCO2 ABG 31.2 mmHg (35.0-45.0); PO2 ABG 63.2 mmHg (80.0-100.0); PO2 FiO2 Ratio Arterial Blood 3.01 %; Total Hemoglobin 14.4 g/dL (12.0-18.0); pH ABG 7.461 (7.350-7.450)
[2021-11-15 09:08] LABS: Device ROOM AIR; Modified Allen's Test Pass; Site Drawn LEFT RADIAL
[2021-11-15 09:09] LABS: Troponin I 0.024 ng/mL (0.000-0.034)
[2021-11-15] MEDS: ASPIRIN 81 MG CHEWABLE TABLET 324 MG PO (09:21)
[2021-11-15] MEDS: METOPROLOL TARTRATE TAB 25 MG, METOPROLOL TARTRATE TAB 12.5 MG 37.5 MG PO ×2 (11:03→21:13)
--- NOTE | 2021-11-15 11:44 | PC.NURSE ---
Report received by JANETH Jarrett with the ED department at 1144. All questions answered and plan of care reviewed. Patient to go to [facility] room 1.
[2021-11-15 11:55] LABS: Troponin I 0.024 ng/mL (0.000-0.034)
--- NOTE | 2021-11-15 12:32 | ADMGEN ---
This patient, Azeem Sweeney, was admitted to [facility] at 1225 from the ED. Patient/family oriented to hospital policies and general routines including ID bracelet, bed and alarms, visiting hours, pain management, procedures, bathroom and other care routines, personal items, smoking policy, room service/diet, and visiting hours. Information on how to activate the Rapid Response Team has been discussed. Patient/Family are encouraged to report perceived risks to care and to ask questions if they do not understand what they are told or what they should do.
--- NOTE | 2021-11-15 12:53 | ECG_ITS ---
Measurements Intervals [place] Rate: 101 P: 65 MA: 142 QRS: 63 QRSD: 89 T: 76 QT: 323 QTc: 419 Interpretive Statements SINUS TACHYCARDIA ABNORMAL RHYTHM ECG COMPARED TO ECG 11/15/2021 08:38:38 NO SIGNIFICANT CHANGES Electronically Signed On 11-15-2021 20:26:14 CDT by Anabell Dumont M.D.
[2021-11-15] MEDS: IPRATROPIUM BR 0.02% INH SOLN 0.5 MG/2.5 ML VIAL INHALATION (13:32)
[2021-11-15] MEDS: ALBUTEROL SULFATE NEB 2.5 MG/0.5 ML INH INHALATION (13:33)
[2021-11-15] MEDS: ALBUTEROL SULFATE NEB 2.5 MG/0.5 ML INH 5 MG INHALATION (13:33)
[2021-11-15 14:53] LABS: Troponin I 0.025 ng/mL (0.000-0.034)
--- NOTE | 2021-11-15 17:34 | PM.IMHP ---
H&P: HPI History of Present Illness Date/Time: Patient was placed observation status for expected length of stay less than 23 hours for management, will plan to re-evaluate tomorrow for improvement. 11/15/21 17:34 Chief Complaint: Chest pain Narrative: Mr. Sweeney is a 60-year-old gentleman who presented to the emergency with complaints of chest discomfort over the last 2-3 days. Patient states that he feels like someone is sitting on his chest and he does have associated shortness of breath. Patient denies any associated nausea, vomiting, or diaphoresis. Patient states that he does not feel any radiation of the pain. Patient states approximately 3 weeks ago he did have a myocardial infarction and went to [facility] and had a stent placed to his obtuse marginal with a 2.75 x 18 mm wil stent. Patient states at that time he was told he had 2 other blockages, but he was unsure if he was supposed to have them manage medically or come back for further intervention. Patient has not followed up with Cardiology the head initially placed the stents. Patient states he has been taking all medications without any difficulty. Upon evaluation in emergency room patient had EKG that showed no acute changes and a troponin that was within normal limits. Patient states he did feel short of breath while in the emergency room, but his O2 saturations were 95-100%. Patient states that he wears oxygen at 1 L per nasal cannula at night so this was placed in patient states he did feel more comfortable. Patient states he has also had increasing edema to bilateral lower extremities is over the last 3-4 days. Patient states he has had swelling for well over a year, but over the last 3-4 days it has significantly increased. Patient states he does have a known history of moderate to severe COPD, CAD status post stent placement, dyslipidemia, and hypertension. Review of Systems Review of Systems: A 12 point review of systems was completed patient all pertinent positive and negative per HPI the remainder are unremarkable. [facility] Past Medical History Medical History COPD (chronic obstructive pulmonary disease) COPD (chronic obstructive pulmonary disease) Coronary disease Dyslipidemia Former tobacco use Hypertension Family History Family History Father Acute myocardial infarction Social History Social History Smoking packs per day: 2 Smoking cigarettes per day: 40.0 Years smoked: 40 Smoking pack-years: 80.00 Smoking status: Former smoker Tobacco type: cigarettes Second hand tobacco smoke exposure: No Alcohol intake: never Substance use: never Substance use type: does not use Spiritual care concerns: No Meds Home Medications and Allergies Home Medications Medication Instructions Recorded Confirmed Type Trelegy Ellipta 1 inh INHALATION DAILY 11/01/21 11/15/21 History albuterol sulfate [Proventil HFA] 2 puff INHALATION Q6H 11/01/21 11/15/21 History aspirin 81 mg PO DAILY 11/01/21 11/15/21 History atorvastatin 80 mg PO DAILY 11/01/21 11/15/21 History ipratropium-albuterol 3 ml INHALATION Q6H PRN 11/01/21 11/15/21 History irbesartan 300 mg PO DAILY 11/01/21 11/15/21 History metoprolol succinate 25 mg PO DAILY 11/01/21 11/15/21 History nitroglycerin 0.4 mg SUBLINGUAL Q5MIN 11/01/21 11/15/21 History pantoprazole 40 mg PO DAILY 11/01/21 11/15/21 History ticagrelor 90 mg PO Q12H 11/01/21 11/15/21 History acetylcysteine 3 ml INHALATION BID #90 ml 11/06/21 11/15/21 Rx alprazolam [Xanax] 0.5 mg PO DAILY #3 tablet 11/06/21 11/15/21 Rx guaifenesin 600 mg PO BID #20 tablet 11/06/21 11/15/21 Rx lidocaine 2 patch TOPICAL DAILY #30 ea 11/06/21 11/15/21 Rx prednisone 40 mg PO DAILY #6 tablet 11/06/21 11/15/21 Rx Allergies Allergy/AdvReac Type Severity Reaction Status Date / Time No Known Drug A
--- NOTE | 2021-11-15 17:50 | PM.CNCAR ---
Assessment and Plan Assessment and plan (1) Chest pain: Qualifiers: Chest pain type: unspecified Qualified Code(s): R07.9 - Chest pain, unspecified <MIGUEL ANGEL Stoll - Last Filed: 11/16/21 10:41> Code(s): R07.9 - Chest pain, unspecified <MIGUEL ANGEL Stoll - Last Filed: 11/16/21 10:41> Status: Acute <MIGUEL ANGEL Stoll - Last Filed: 11/16/21 10:41> Assessment and Plan: His chest pain is atypical and not concerning for myocardial ischemia. Furthermore, he did not have any ischemic changes on his EKG. Serial troponin levels have been negative. Currently, his chest pain is not completely resolved but very mild. He is comfortable. Given his lower extremity swelling the chest pain could be related to volume overload secondary to CHF, though I doubt this because he has normal systolic function. He does have grade 1 diastolic dysfunction. Will check a NT-proBNP Check chest x-ray Repeat EKG Will obtain records from [facility] Beta-rony was stopped during his last admission because of his COPD. Can try some Imdur to see if this helps his chest pain. No further cardiac workup recommended <MIGUEL ANGEL Stoll - Last Filed: 11/16/21 10:41> (2) COPD (chronic obstructive pulmonary disease): Qualifiers: COPD type: unspecified COPD Qualified Code(s): J44.9 - Chronic obstructive pulmonary disease, unspecified <MIGUEL ANGEL Stoll - Last Filed: 11/16/21 10:41> Code(s): J44.9 - Chronic obstructive pulmonary disease, unspecified <MIGUEL ANGEL Stoll - Last Filed: 11/16/21 10:41> Status: Acute <MIGUEL ANGEL Stoll - Last Filed: 11/16/21 10:41> Assessment and Plan: Seems to be well controlled at present. Management per hospitalist. <MIGUEL ANGEL Stoll - Last Filed: 11/16/21 10:41> (3) Bilateral lower extremity edema: Code(s): R60.0 - Localized edema <MIGUEL ANGEL Stoll - Last Filed: 11/16/21 10:41> Status: Acute <MIGUEL ANGEL Stoll - Last Filed: 11/16/21 10:41> Assessment and Plan: As above, could be secondary to CHF. Furosemide 20 mg IV x1 Compression stocking <MIGUEL ANGEL Stoll - Last Filed: 11/16/21 10:41> Additional Plan Agree with Kayla Foreman's assessment and plan. Mr. Salughter has a history of NSTEMI and circumflex PCI recently. Heel walk this morning around 4:00 a.m. with some substernal chest heaviness which persisted throughout the morning and came to the emergency room for evaluation. No response to nitroglycerin at home or in the emergency room. The discomfort is gradually dissipated. Some associated shortness of breath and lower extremity edema. Physical exam: Vital sign: Pulse 80 5-101, blood pressure 106/85, on room air General: Sitting in bed, no distress SHEENT: Extraocular muscles intact Cardiac: Regular rate and rhythm, no murmurs or gallops Lungs: Distant breath sounds, clear to auscultation, no respiratory distress Abdomen: Soft and nontender Extremities: Mild lower extremity edema Skin: No lesions Neurologic: Alert and oriented, moved all extremities Psychiatric: Normal affect Labs: Troponin 0.24, 0.024 and 0.025 ProBNP: 70 Chest x-ray: No significant change, COPD, personally reviewed EKG 11/15/2021 at 8:38 a.m.: Sinus tachycardia rate 110, no ischemia EKG 11/15/2021 it 1302: Sinus tachycardia rate 101, no ischemia Both EKGs personally reviewed Echo 11/01/2021: EF 65-70% Impression: Chest pain: Atypical, negative troponins and EKG, noncardiac. Doubt PE. Perhaps GERD? CAD: Recent non-STEMI status post circumflex stent new line COPD Lower extremity edema Plan: Agree with Danielle Melo's assessment and plan Add PPI <Anabell Dumont MD - Last Filed: 11/15/21 20:02> History of Present Illness History of Present Illness Consult date/time: 11/15/21 17:50 <MIGUEL ANGEL Stoll - Last Filed: 11/16/
[2021-11-15 19:18] LABS: NT Pro B Type Natriuretic Pept 70 pg/mL (5-100)
[2021-11-15] MEDS: ACETYLCYSTEINE 20% INHAL SOLN 800 MG/4 ML VIAL 600 MG INHALATION (20:03)
[2021-11-15] MEDS: guaiFENesin 12 HR 600 MG TABCR PO (21:12)
[2021-11-15] MEDS: TICAGRELOR 90 MG TABLET PO (21:13)
[2021-11-15] MEDS: ACETAMINOPHEN 325 MG TABLET 650 MG PO (21:48)
[2021-11-15] MEDS: FUROSEMIDE INJ 40 MG/4 ML VIAL 20 MG IV PUSH (21:49)
[2021-11-16] VITALS (11 sets, daily range): BP systolic 101–140; BP diastolic 56–89; PULSE 88–118; RESP 18–20; TEMP 36.7–36.9; O2SAT 94–95
--- NOTE | 2021-11-16 06:00 | ECG_ITS ---
Measurements Intervals [place] Rate: 104 P: 50 CO: 150 QRS: 40 QRSD: 93 T: 70 QT: 323 QTc: 426 Interpretive Statements SINUS TACHYCARDIA NONSPECIFIC ST & T-WAVE ABNORMALITY ABNORMAL RHYTHM ECG COMPARED TO ECG 11/15/2021 13:02:57 NO SIGNIFICANT CHANGE Electronically Signed On 11-16-2021 18:44:43 CDT by Anabell Dumont M.D.
[2021-11-16 06:50] LABS: Basophils Absolute Auto 0.1 K/mm3 (0.0-0.1); Basophils Percent Auto 0.5 % (0.2-1.2); Eosinophils Absolute Auto 0.6 K/mm3 (0-0.3); Eosinophils Percent Auto 6.1 % (0-4.4); Hematocrit 40.5 % (42.0-52.0); Hemoglobin 13.5 g/dL (14.0-18.0); Immature Granulocyte Absolute 0.09 K/mm3 (0.00-0.031); Immature Granulocyte Percent A 0.9 % (0-0.5); Lymphocytes Absolute Auto 2.03 K/mm3 (0.9-3.2); Lymphocytes Percent Auto 20.5 % (18.3-44.2); Mean Corpuscular HGB Conc 33.3 g/dl (32-36); Mean Corpuscular Hemoglobin 32.1 pg (26-34); Mean Corpuscular Volume 96.2 fl (80-100); Monocytes Absolute Auto 0.9 K/mm3 (0.1-0.6); Monocytes Percent Auto 8.9 % (2.6-8.5); Neutrophils Absolute Auto 6.3 K/mm3 (1.3-6.7); Neutrophils Percent Auto 63.1 % (45.5-73.1); Platelet Count Result 106 k/mm3 (150-375); Red Blood Count 4.21 M/mm3 (4.6-6.20); Red Cell Distribution Width 13.8 % (11.5-14.5); White Blood Count 9.9 K/mm3 (4.5-10.0)
[2021-11-16 07:06] LABS: Anion Gap 5 mmol/L (8-16); Blood Urea Nitrogen 18 mg/dL (9-20); Calcium 8.3 mg/dL (8.4-10.2); Carbon Dioxide 29 mmol/L (22-30); Chloride 102 mmol/L (98-107); Estimated CRCL calculation 79 ml/min; Estimated Glomerular Filt Rate > 60; Glucose 101 mg/dL (65-110); Sodium 136 mmol/L (137-145)
[2021-11-16 07:16] LABS: Hemoglobin A1C 6.4 % (<5.7)
[2021-11-16] MEDS: ATORVASTATIN 40 MG TABLET 80 MG PO (09:12)
[2021-11-16] MEDS: guaiFENesin 12 HR 600 MG TABCR PO (09:12)
[2021-11-16] MEDS: ASPIRIN 81 MG CHEWABLE TABLET PO (09:13)
[2021-11-16] MEDS: IRBESARTAN 150 MG TABLET 300 MG PO (09:13)
[2021-11-16] MEDS: TICAGRELOR 90 MG TABLET PO (09:13)
[2021-11-16] MEDS: ISOSORBIDE MONONITRATE 30 MG TAB.ER.24H PO (09:13)
[2021-11-16] MEDS: ACETYLCYSTEINE 20% INHAL SOLN 800 MG/4 ML VIAL 600 MG INHALATION (09:13)
[2021-11-16] MEDS: PANTOPRAZOLE 40 MG TABLET PO (09:13)
[2021-11-16] MEDS: FLUTICASONE/UMECLIDIN/VILANTER 200-62.5-25 MCG ELLIPTA 1 PUFF INHALATION (09:16)
--- NOTE | 2021-11-16 10:41 | PM.PNCARD ---
Progress Note: A&P Assessment and Plan (1) Chest pain: Qualifiers: Chest pain type: unspecified Qualified Code(s): R07.9 - Chest pain, unspecified Code(s): R07.9 - Chest pain, unspecified Status: Acute Assessment and Plan: His chest pain is atypical and not concerning for myocardial ischemia. Furthermore, he did not have any ischemic changes on his EKG. Serial troponin levels have been negative. Chest pain has resolved. Continue Imdur. Perhaps some GERD causing symptoms. Started on PPI No further cardiac workup recommended OK for discharge home today from a cardiac perspective. (2) COPD (chronic obstructive pulmonary disease): Qualifiers: COPD type: unspecified COPD Qualified Code(s): J44.9 - Chronic obstructive pulmonary disease, unspecified Code(s): J44.9 - Chronic obstructive pulmonary disease, unspecified Status: Acute Assessment and Plan: Seems to be well controlled at present. Management per hospitalist. (3) Bilateral lower extremity edema: Code(s): R60.0 - Localized edema Status: Acute Assessment and Plan: As above, could be secondary to CHF. Still has some swelling. Will give one more dose of furosemide 20mg IV now. Furosemide 20 mg p.o. daily Compression stockings at home Subjective Date/time seen: 11/16/21 10:41 Cardiology follow up for chest pain Patient feels well this morning. Chest pain has resolved. Complaining of a sore throat. No shortness of breath. He does still have some pedal edema. Review of Systems Review of Systems: All systems reviewed & are unremarkable except as noted in HPI and below Constitutional: Constitutional: Denies difficulty sleeping, Denies excessive sweating, Reports fatigue, Denies headache(s) and Reports lethargy Eyes: Eyes: Denies change in vision ENT: Reports Normal hearing present, Denies headache(s), Denies neck pain and Denies tinnitus Cardiovascular: Cardiovascular: Reports chest pain, Denies diaphoresis, Reports pedal edema, Denies leg edema, Denies lightheadedness, Denies palpitations, Denies dyspnea and Denies dyspnea on exertion Respiratory: Respiratory: Denies chest congestion, Denies dyspnea, Denies dyspnea on exertion and Reports wheezing Gastrointestinal: Gastrointestinal: Denies abdominal pain, Denies bloating, Denies nausea and Denies vomiting Genitourinary: Genitourinary: Denies dysuria Musculoskeletal: Musculoskeletal: Denies back pain, Denies arthralgias and Denies neck pain Integumentary/Breasts: Skin/Breast: Denies unusual bruising and Denies wounds Neurologic: Reports Normal hearing present and Denies headache(s) Psychiatric: Psychiatric: Denies anxiety and Denies depression Endocrine: Endocrine: Denies excessive sweating, Reports fatigue, Denies flushing and Denies palpitations Hematologic/Lymphatic: Hematologic/Lymphatic: Denies easy bleeding and Denies easy bruising Allergic/Immunologic: Allergic/Immunologic: Denies GI upset with certain foods and Reports wheezing Exam Const: General: comfortable and no acute distress Other: Middle-aged gentleman sitting on the edge of the bed. Alert and oriented. HENMT: Mouth: Yes moist mucous membranes Eyes: General: appearance normal, both eyes and all related structures Pupils: Equal, round and reactive pupils present Neck: Neck: supple and no JVD Resp: Effort & Inspection: normal respiratory effort Auscultation: no crackles, no rales and wheezes expiratory wheezes Cardio: Rate: regular rate and tachycardic Rhythm: regular rhythm Heart sounds: no murmurs GI: Auscultation: normal bowel sounds Skin: General skin exam: normal color Neuro: Cranial nerves: Yes Equal, round and reactive pupils present and Yes Normal hearing present Cognition (Neuro): normal cognition Extrem: General: abnormal to inspection and pedal edema Psych: Mental Status: mental status grossly normal Objective Data V
[2021-11-16] MEDS: FUROSEMIDE INJ 40 MG/4 ML VIAL 20 MG IV PUSH (10:56)
--- NOTE | 2021-11-16 11:13 | PM.DS ---
DS: Admitting Diagnosis Discharge Date 11/16/2021 Admitting Diagnosis Rule out ACS GERD COPD Localized edema Chronic CHF DS: Discharge Diagnosis Discharge Diagnosis (1) Chest pain: Qualifiers: Chest pain type: unspecified Qualified Code(s): R07.9 - Chest pain, unspecified Code(s): R07.9 - Chest pain, unspecified Status: Acute Assessment and Plan: Troponins are negative at this time. Cardiology has been consult and do appreciate further recommendations. Patient states he has been taking his medications at home as ordered. Patient states that he was told he had to other lesions in his coronary arteries, but he was not sure if they were to be medically managed or to have staged intervention. Will attempt to obtain patient's records from [facility]. Patient did have an episode of chest pain while in the [facility] received 1 nitroglycerin and did have significant hypotension. (2) COPD (chronic obstructive pulmonary disease): Qualifiers: COPD type: unspecified COPD Qualified Code(s): J44.9 - Chronic obstructive pulmonary disease, unspecified Code(s): J44.9 - Chronic obstructive pulmonary disease, unspecified Status: Acute Assessment and Plan: Patient did have expiratory wheezing upon evaluation. Patient states he has chronic wheezing. Patient has home nebulizers and COPD medication have been reordered. Patient does not appear to be having an acute exacerbation of his COPD. (3) Edema: Code(s): R60.9 - Edema, unspecified Status: Acute Assessment and Plan: Patient had edema present on last admission. Cardiology was aware and stated that this was a longstanding history of chronic edema and that it was not resolving with diuretics. Patient shows no overt symptoms of decompensated congestive heart failure. Patient's ejection fraction on echocardiogram was 65-70%. Cardiology has been consult and do appreciate any further recommendations. (4) Hypertension: Qualifiers: Hypertension type: primary hypertension Qualified Code(s): I10 - Essential (primary) hypertension Code(s): I10 - Essential (primary) hypertension Status: Acute Assessment and Plan: Patient did receive a nitroglycerin all the chest pain center for a complaint of chest discomfort and had hypotension. Patient's blood pressure is now trending up and is stable. Will resume patient's home medications and monitor blood pressure closely to ensure patient does not have any hypotensive episodes. DS: Summary Hospital Course Reason for hospitalization: Acute chest pain Hospital Course: Mr. Sweeney is a 60-year-old gentleman known history of moderate to severe COPD, CAD status post stent placement, dyslipidemia, and hypertension. presented to the emergency with complaints of chest discomfort over the last 2-3 days. Patient states that he feels like someone is sitting on his chest and he does have associated shortness of breath. Patient denies any associated nausea, vomiting, or diaphoresis. Patient states that he does not feel any radiation of the pain. Patient states approximately 3 weeks ago he did have a myocardial infarction and went to [facility] [place] and had a stent placed to his obtuse marginal with a 2.75 x 18 mm wil stent. Patient states at that time he was told he had 2 other blockages, but he was unsure if he was supposed to have them manage medically or come back for further intervention. Patient has not followed up with Cardiology the head initially placed the stents. Patient states he has been taking all medications without any difficulty. Upon evaluation in emergency room patient had EKG that showed no acute changes and a troponin that was within normal limits. Patient states he did feel short of breath while in the emergency room, but his O2 saturations were 95-100%. Patient states that he wears oxygen at 1 L per nasal cannula at [facility]
== END 2021-11-16 12:52 | disposition home or self-care (01) ==
LOC: ANHED 10:40 → ANHCPC 13:57
PROVIDERS: Nurse Practitioner; Nurse Practitioner Adult Health; Admitting Provider Family Medicine; Emergency Provider Emergency Medicine; PCP Internal Medicine; Visit Provider Nurse Practitioner Family
DX: I21.4 Non-ST elevation (NSTEMI) myocardial infarction (principal); I95.9 Hypotension, unspecified; R07.89 Other chest pain; J44.9 Chronic obstructive pulmonary disease, unspecified; I25.2 Old myocardial infarction; I11.9 Hypertensive heart disease without heart failure; I25.10 Atherosclerotic heart disease of native coronary artery without angina pectoris; E78.5 Hyperlipidemia, unspecified; R60.9 Edema, unspecified; R06.02 Shortness of breath; Z79.82 Long term (current) use of aspirin; Z87.891 Personal history of nicotine dependence; Z95.5 Presence of coronary angioplasty implant and graft; Z99.81 Dependence on supplemental oxygen; Z79.899 Other long term (current) drug therapy
CPT/HCPCS: 36415; 36600; 71045; 80048; 80053; 82805; 83036; 83690; 83880; 84484; 85025; 85610; 85730; 93005; 94640; 96374; 99285; A9270; G0378; G0379; J1940

== ENCOUNTER 2021-12-27 06:32 | Outpatient (CLI) | payer OTHER, SELFPAY ==
--- NOTE | ~2021-12-27 | CT_ITS ---
EXAMINATION: CT abdomen pelvis w con DATE: 12/27/2021 07:23 INDICATION: Left upper quadrant abdominal pain TECHNIQUE: Computed tomography (CT) of the abdomen and pelvis was performed with 100 CC Omnipaque 350 intravenous contrast. Automated exposure control and iterative reconstruction technique were employe d. Exam dose: 825.50 mGy-cm total exam DLP. COMPARISON: None. FINDINGS: Emphysematous changes are noted in the included lower lung zones. No infiltrate or consolid ation is noted. Normal heart size. Coronary artery calcifications. No pericardial or pleural effusion. Diffuse hepatic steatosis. No hepatic space-occupying mass lesion is detected. The gallbladder is pre sent. No gallbladder wall thickening or pericholecystic fluid or fat stranding. No bile duct or pancr eatic duct dilatation. No pancreatic mass lesion or calcification. Normal splenic size. Normal morphology of the adrenal glands. Approximately 5.6 cm lower pole left renal cyst. The kidneys are otherwise unremarkable. No urinary t ract calculus or hydroureteronephrosis. Prostate enlargement and calcification. The urinary bladder is unremarkable. There is atherosclerotic calcification of the abdominal aorta and iliac and femoral arteries. No abdo micaela aortic aneurysm. No intraperitoneal or retroperitoneal or pelvic mass scattered diverticula of the colon; no CT evidence of diverticulitis. No bowel obstruction, bowel wall thickening, pneumatosis or intraperitoneal free air. Lesion or adenopathy or ascites. Normal appendix. Bilateral fat-containing inguinal hernias. Very small fat-containing umbilical hernia. No suspicious osteolytic or osteoblastic lesions. IMPRESSION: Emphysema Coronary atherosclerosis Hepatic steatosis 5.6 cm lower pole left renal cyst Mild colonic diverticulosis Bilateral fat-containing inguinal hernias Reviewed, dictated and finalized at Location [facility]. Reviewed, dictated and finalized at location A.
[2021-12-27 07:13] LABS: Estimated Glomerular Filt Rate > 60
== END 2021-12-27 06:33 | disposition home or self-care (01) ==
LOC: ANHIMG 06:38
PROVIDERS: PCP Internal Medicine; Visit Provider Internal Medicine
DX: R10.12 Left upper quadrant pain (principal); J43.9 Emphysema, unspecified; I25.10 Atherosclerotic heart disease of native coronary artery without angina pectoris; K76.0 Fatty (change of) liver, not elsewhere classified; N28.1 Cyst of kidney, acquired; K57.90 Diverticulosis of intestine, part unspecified, without perforation or abscess without bleeding; K40.20 Bilateral inguinal hernia, without obstruction or gangrene, not specified as recurrent
CPT/HCPCS: 74177; Q9967

== ENCOUNTER 2022-10-16 09:27 | Outpatient (CLI) | payer OTHER, SELFPAY ==
--- NOTE | ~2022-10-16 | CT_ITS ---
EXAMINATION: CT diagnostic chest wo con DATE: 10/16/2022 09:49 INDICATION: Lung nodule TECHNIQUE: Computed tomography (CT) of the chest was performed without intravenous contrast. The dose -length product (DLP) was 190.76 mGy-cm. Automated exposure control and iterative reconstruction tech nique were employed. COMPARISON: 11/01/2021 FINDINGS: There is moderate emphysema. There is chronic scarring, calcification, and volume loss in t he right upper lobe without significant change. No pathologically enlarged thoracic lymph nodes are i dentified. The heart size is normal. There is calcified coronary artery atherosclerosis. IMPRESSION: 1. Moderate emphysema. 2. Chronic scarring, calcification, and volume loss in the right upper lobe. A Reviewed, dictated and finalized at location L. [employer] PROFESSOR
== END 2022-10-16 09:28 | disposition home or self-care (01) ==
LOC: ANHIMG 09:32
PROVIDERS: PCP Internal Medicine; Visit Provider Internal Medicine
DX: J43.9 Emphysema, unspecified (principal); J98.4 Other disorders of lung
CPT/HCPCS: 71250

== ENCOUNTER 2024-06-08 14:51 | Observation (INO) | payer OTHER, SELFPAY ==
[2024-06-08] VITALS (9 sets, daily range): BP systolic 115–155; BP diastolic 73–111; PULSE 81–112; RESP 12–20; TEMP 36.5–36.6; O2SAT 94–99; BMI 29.1
--- NOTE | ~2024-06-08 | NM_ITS ---
EXAMINATION: NM robert stress w perfusion DATE: 06/10/2024 11:25 INDICATION: Chest pain. Atherosclerotic heart disease of [place] coronary artery. TECHNIQUE: Rest images were obtained following intravenous administration of 9.2 mCi Tc99m tetrofosmi n (Myoview). The patient was infused intravenously with Lexiscan (regadenoson). Then, 29.2 mCi Tc99m tetrofosmin (Myoview) was administered intravenously, and stress images were obtained. Data was recon structed into short axis and horizontal and vertical long axis SPECT images. Gated SPECT images were also obtained. COMPARISON: Chest CT 06/09/2024 FINDINGS: Increased activity below the diaphragm decreases sensitivity and specificity in the inferio r wall. There is a moderate-sized, mild, fixed perfusion defect involving inferior wall of left ventr icle, consistent with infarct. No reversible component to suggest ischemia.. There is no segmental w all motion abnormality. Left ventricular ejection fraction measures 59%. IMPRESSION: 1. Moderate-sized area of mild infarct involving inferior wall of left ventricle. 2. Normal left ventricular ejection fraction measuring 59%. Reviewed, dictated and finalized at location A. IMPRESSION: 1. Moderate-sized area of mild infarct involving inferior wall of left ventricl e. 2. Normal left ventricular ejection fraction measuring 59%.
--- NOTE | ~2024-06-08 | XR_ITS ---
XR chest 2V Ordering provider: Ricardo Cronin MD History: 63 years Male with . cp . Comparison: None. FINDINGS: MEDIASTINUM: The cardiac silhouette is not enlarged. LUNGS: No infiltrates, effusions or pneumothorax. Atelectatic changes in the right kidney area. Prominent markings in the lower lobes netter seen in th e lateral view. Early pneumonia cannot be excluded. Emphysematous changes. OTHER: No free air under the diaphragm. IMPRESSION: Prominent markings in the lower lobes. Early pneumonia cannot be excluded. Follow-up advised. Reviewed, dictated and finalized at location A. IMPRESSION: Prominent markings in the lower lobes. Early pneumonia cannot be excluded. Foll ow-up advised.
--- NOTE | ~2024-06-08 | US_ITS ---
EXAMINATION: US carotid duplex BI DATE: 06/09/2024 13:25 INDICATION: Left-sided neck pain TECHNIQUE: Grayscale, color Doppler, and pulsed Doppler images of the cervical carotid arteries were obtained. The degree of vessel stenosis is placed in one of the following categories: normal, <50%, 5 0-69%, >=70% but less than near-occlusion, near-occlusion, or total occlusion. Note that percent sten osis relative to normal distal artery lumen diameter is indirectly measured from velocity measurement s as described by Price, et al. Radiology 2003; 229:340-346. Notes: Normal: Peak systolic velocity <125 centimeters/sec and no plaque <50%. Peak systolic velocity <125 ( EDV <40; ICA/CCA PSV ratio <2.0; used these factors only a tandem lesions or low cardiac output or co ntralateral disease) 50-69 %: PSV 125-230 (EDV 40-100; ratio 2-4) >= 70% but less than near occlusion: PSV greater than 230 (EDV > 100; ratio> 4.0) Near Occlusion: PSV that is variable; markedly narrowed lumen Occlusion: Absent flow on color/spectral Doppler and no lumen on joya scale. COMPARISON: None. FINDINGS: RIGHT: The right common carotid artery (CCA) peak systolic velocity (PSV) is 63 cm/s. The right internal car otid artery (ICA) PSV is 59 cm/s. The right ICA end-diastolic velocity (EDV) is 18 cm/s. The right IC A/CCA PSV ratio is 0.9. The external carotid artery (ECA) PSV is 120 cm/s. There is antegrade flow in the right vertebral artery. LEFT: The left CCA PSV is 62 cm/s. The left ICA PSV is 62 cm/s. The left ICA EDV is 21 cm/s. The left ICA/C CA PSV ratio is 1.0. The ECA PSV is 106 cm/s. There is antegrade flow in the left vertebral artery. IMPRESSION: 1. Less than 50% stenosis in the right internal carotid artery by sonographic criteria. 2. Less than 50% stenosis in the left internal carotid artery by sonographic criteria. Reviewed, dictated and finalized at location B. IMPRESSION: 1. Less than 50% stenosis in the right internal carotid artery by sonographic c abel. 2. Less than 50% stenosis in the left internal carotid artery by sonographic cr mae.
--- NOTE | ~2024-06-08 | CT_ITS ---
CLINICAL INDICATION: Chest and abdominal pain COMPARISON: Reference is made to a plain film evaluation of the chest dated 06/08/[address] examination of the chest dated 08/15/2023. TECHNIQUE: An enhanced CT of the chest and abdomen was performed utilizing multislice spiral techniqu e reconstructed at 2.5 mm slice thickness. Coronal and sagittal reconstructions were performed. This CT examination was performed using one or more of the following dose reduction techniques: Autom ated exposure control, adjustment of the mA and/or kV according to patient's size, and the use of ite rative reconstruction technique. DLP: 986.44 mGy - cm FINDINGS/OBSERVATIONS: Lung:Apical scarring detected bilaterally. Panlobular emphysematous disease bullous is identified, demonstrating progression since previous exam ination dated 10/16/2019. Mediastinum: No pathologically enlarged or morphologically suspicious lymph nodes are identified with in the mediastinum or within the bilateral axilla. The heart is of normal size, without pericardial effusion. Small hiatal hernia is present. Soft tissues of the chest: Unremarkable. Bones of the chest: No lytic or blastic lesions are identified. Liver: The unenhanced liver measures 18 cm in longitudinal dimension Gallbladder and biliary system: The gallbladder is only minimally distended, and otherwise unremarkab le. Pancreas: Evaluation of the pancreas is limited without intravenous contrast. Spleen: The spleen is enlarged measuring 12 cm in longitudinal dimension. Punctate calcifications within the spleen, suggesting prior granulomatous disease. Kidneys: A rounded focus of fluid attenuation is identified exophytic from No hydronephrosis or obstructing renal calculi. the lower pole of the left kidney measuring 6 x 6.7 x 5.5 cm (anterior to posterior x medial to lateral x cranial to caudal dimension). Adrenal glands: Unremarkable Gastrointestinal tract: Colonic diverticulosis is identified without surrounding inflammatory change. Appendix:The air-filled appendix is of normal caliber (axial series, image 223) Vasculature: Densely calcified atherosclerotic disease. Lymph nodes: No pathologically enlarged or morphologically suspicious lymph nodes are identified with in the retroperitoneum or mesentery. IMPRESSION: No acute intra-abdominal findings. Splenomegaly. Left renal cyst. Diverticulosis without diverticulitis. Reviewed, dictated and finalized at location A.
--- NOTE | 2024-06-08 14:57 | ECG_ITS ---
Test Date: 2024-06-08 15:02:40 Measurements Intervals [place] Rate: 105 P: 66 DE: 155 QRS: 46 QRSD: 84 T: 68 QT: 327 QTc: 433 Interpretive Statements SINUS TACHYCARDIA OTHERWISE NORMAL ELECTROCARDIOGRAM No previous ECG available for comparison Electronically Signed On 06-09-2024 07:19:22 CDT by Abe Guerrero M.D.
--- NOTE | 2024-06-08 14:58 | ED.CHESTPAIN ---
HPI - Chest Pain General Chief Complaint: Chest Pain <Sophia Ventura PA-C - Last Filed: 06/08/24 15:07> Stated Complaint: chest pain <Sophia Ventura PA-C - Last Filed: 06/08/24 15:07> Time Seen by Provider: 06/08/24 14:58 <Sophia Ventura PA-C - Last Filed: 06/08/24 15:07> Focused HPI: Patient is a 63 y/o male, with PMH of CAD with 3 stents, COPD, HTN, HLD, who presents to the ED via EMS with c/o CP. Patient states pain began around 130 after walking up a flight of stairs. Present in L sided chest, radiating into L sided neck. Describes the pain as a heaviness/pressure. Feels somewhat similar to previous heart attacks. Patient sees Dr. Gutiérrez. Took 4 NTG prior to arrival. Rates pain a 2/10 currently. Pain was associated with nausea, diaphoresis, SOB. Patient denies cough, cold sx's, new swelling in BLE. GENERAL: Appears older than stated age, and in no acute distress. HEAD: Normocephalic, atraumatic. CHEST: Clear to auscultation. Decreased lung sounds in bases. Occ wheezing. HEART: Borderline tachycardic with regular rhythm.?No significant peripheral edema. NEURO: ?Alert and oriented x3. Patient screened in triage and initial orders placed.? ?Additional care and disposition to be based upon?diagnostic testing and treatment. <Sophia Ventura PA-C - Last Filed: 06/08/24 15:07> Source: patient <Sophia Ventura PA-C - Last Filed: 06/08/24 15:07> Mode of arrival: EMS <PRESTON Hendrickson Last Filed: 06/08/24 15:07> Limitations: no limitations <PRESTON Hendrickson Last Filed: 06/08/24 15:07> History of Present Illness HPI narrative: Agree with HPI. <Ricardo Cronin MD - Last Filed: 06/08/24 21:21> Related Data Home Medications: Home Medications Medication Instructions Recorded Confirmed albuterol sulfate 90 mcg/actuation 2 puff inhalation Q6H 11/01/21 06/08/24 aerosol inhaler (Proventil HFA) aspirin 81 mg capsule 81 mg PO DAILY 11/01/21 06/08/24 atorvastatin 80 mg tablet 80 mg PO DAILY 11/01/21 06/08/24 ipratropium 0.5 mg-albuterol 3 mg 3 ml inhalation Q6H PRN Wheezing 11/01/21 06/08/24 (2.5 mg base)/3 mL nebulization soln nitroglycerin 0.4 mg sublingual 0.4 mg sublingual Q5MIN 11/01/21 06/08/24 tablet pantoprazole 40 mg granules 40 mg PO DAILY 11/01/21 06/08/24 delayed-release for susp in packet ticagrelor 90 mg tablet 90 mg PO Q12H 11/01/21 06/08/24 budesonide-formoterol HFA 80 1 puff inhalation BID 06/08/24 06/08/24 mcg-4.5 mcg/actuation aerosol inhaler (Symbicort) cetirizine 10 mg tablet (Zyrtec) 10 mg PO DAILY 06/08/24 06/08/24 furosemide 20 mg tablet (Lasix) 20 mg PO DAILY PRN swelling 06/08/24 06/08/24 montelukast 5 mg chewable tablet 10 mg PO HS 06/08/24 06/08/24 (Singulair) prednisone 20 mg tablet 5 mg PO DAILY 06/08/24 06/08/24 tiotropium bromide 1.25 1 inh inhalation BID 06/08/24 06/08/24 mcg/actuation mist for inhalation (Spiriva Respimat) <Sophia Ventura PA-C - Last Filed: 06/08/24 15:07> Allergies/Adverse Reactions: Allergies Allergy/AdvReac Type Severity Reaction Status Date / Time No Known Allergies Allergy Verified 06/08/24 21:00 <Sophia Ventura PA-C - Last Filed: 06/08/24 15:07> Review of Systems Review of Systems: All systems reviewed & are unremarkable except as noted in HPI and below <Ricardo Cronin MD - Last Filed: 10/07/24 21:21> Constitutional: Constitutional: Reports no additional constitutional complaints <Ricardo Cronin MD - Last Filed: 06/08/24 21:21> Cardiovascular: Cardiovascular: Reports chest pain, Denies rapid heart rate, Reports radiating jaw, neck or arm pain and Denies slow heart rate <Ricardo Cronin MD - Last Filed: 06/08/24 21:21> Respiratory: Respiratory: Reports no additional respiratory complaints <Ricardo Cronin MD - Last Filed: 06/08/24 21:21> Gastrointestinal: Gastrointestinal: Reports no additional g
[2024-06-08 15:24] LABS: Prothrombin Time 13.4 Seconds (11.1-14.7)
[2024-06-08 15:25] LABS: Alanine Aminotransferase 42 U/L (6-50); Albumin Level 4.7 g/dL (3.5-5.1); Alkaline Phosphatase 84 U/L (38-126); Anion Gap 10 mmol/L (4-12); Aspartate Amino Transferase 40 U/L (17-59); Bilirubin,Total 0.8 mg/dL (0.2-1.3); Blood Urea Nitrogen 18 mg/dL (9-20); Calcium 9.4 mg/dL (8.4-10.2); Carbon Dioxide 25 mmol/L (22-30); Chloride 103 mmol/L (98-107); Estimated CRCL calculation 74 ml/min; Estimated Glomerular Filt Rate > 60; Glucose 127 mg/dL (65-110); Lipase 67 U/L (23-300); Partial Thromboplastin Time 31.1 Seconds (22.3-36.8); Potassium 4.6 mmol/L (3.4-5.0); Sodium 138 mmol/L (137-145)
[2024-06-08 15:37] LABS: NT Pro B Type Natriuretic Pept 113 pg/mL (19.9-100); Troponin I < 0.012 ng/mL (0.000-0.034)
[2024-06-08 15:56] LABS: Basophils Absolute Auto 0.1 K/mm3 (0.0-0.1); Basophils Percent Auto 0.7 % (0.2-1.2); Eosinophils Percent Auto 0.2 % (0-4.4); Hematocrit 43.8 % (42.0-52.0); Hemoglobin 15.1 g/dL (14.0-18.0); Immature Granulocyte Absolute 0.05 K/mm3 (0.00-0.031); Immature Granulocyte Percent A 0.5 % (0-0.5); Immature Platelet Fraction Pct 16.8 % (0.9-11.2); Lymphocytes Absolute Auto 1.36 K/mm3 (0.9-3.2); Lymphocytes Percent Auto 13.1 % (18.3-44.2); Mean Corpuscular HGB Conc 34.5 g/dl (32-36); Mean Corpuscular Hemoglobin 32.1 pg (26-34); Mean Corpuscular Volume 93.2 fl (80-100); Mean Platelet Volume 12.8 fl (7.4-10.4); Monocytes Absolute Auto 0.6 K/mm3 (0.1-0.6); Neutrophils Absolute Auto 8.3 K/mm3 (1.3-6.7); Neutrophils Percent Auto 79.5 % (45.5-73.1); Platelet Count Result 155 k/mm3 (150-375); Red Cell Distribution Width 13.6 % (11.5-14.5); White Blood Count 10.4 K/mm3 (4.5-10.0)
[2024-06-08 18:57] LABS: Troponin I < 0.012 ng/mL (0.000-0.034)
--- NOTE | 2024-06-08 21:17 | ADMGEN ---
2114 This patient, Azeem Sweeney, was admitted to IMU Room 200-01. Patient/family oriented to hospital policies and general routines including ID bracelet, bed and alarms, visiting hours, pain management, procedures, bathroom and other care routines, personal items, smoking policy, room service/diet, and visiting hours. Information on how to activate the Rapid Response Team has been discussed. Patient/Family are encouraged to report perceived risks to care and to ask questions if they do not understand what they are told or what they should do.
--- NOTE | 2024-06-08 21:22 | ECG_ITS ---
Test Date: 2024-06-08 21:39:19 Measurements Intervals [place] Rate: 80 P: 61 ND: 178 QRS: 45 QRSD: 89 T: 65 QT: 369 QTc: 428 Interpretive Statements SINUS RHYTHM NONSPECIFIC T-WAVE ABNORMALITY BORDERLINE ECG Compared to ECG 06/08/2024 15:02:40 HEART RATE REDUCED, MILD T-WAVE FLATTENING NOTED Electronically Signed On 06-09-2024 07:30:16 CDT by Abe Guerrero M.D.
--- NOTE | 2024-06-08 21:56 | PM.IMHP ---
H&P: HPI History of Present Illness Date/Time: 06/08/24 21:56 Narrative: XR chest 2V Ordering provider: Ricardo Cronin MD History: 63 years Male with . cp . Comparison: None. FINDINGS: MEDIASTINUM: The cardiac silhouette is not enlarged. LUNGS: No infiltrates, effusions or pneumothorax. Atelectatic changes in the right kidney area. Prominent markings in the lower lobes netter seen in the lateral view. Early pneumonia cannot be excluded. Emphysematous changes. OTHER: No free air under the diaphragm. IMPRESSION: Prominent markings in the lower lobes. Early pneumonia cannot be excluded. Follow-up advised. FORMERLY [facility] Past Medical History Medical History COPD (chronic obstructive pulmonary disease) COPD (chronic obstructive pulmonary disease) Coronary disease Dyslipidemia Former tobacco use Hypertension Family History Family History (Updated 06/08/24 @ 20:51 by Sepideh Pandey RN) Father Acute myocardial infarction Sibling Acute myocardial infarction Social History Social History Smoking packs per day: 2.5 Smoking cigarettes per day: 50.0 Years smoked: 29 Smoking pack-years: 72.50 Smoking status: Former smoker Tobacco type: cigarettes Second hand tobacco smoke exposure: No Alcohol intake: never Drinks per week: 72 Substance use: never Substance use type: does not use Last use: 06/07/24 Do You Feel Safe in your Home?: Yes Lack of Transportation: No Lack of Food: Never True Current Housing: I Have Housing Concerned About Future Housing: No Difficulty Paying Gas/Electric Bills: No Difficulty Paying for Meds: No Currently Unemployed: No Education: Grade School Difficulty w/ Childcare or Family Care: No Spiritual care concerns: No Meds Home Medications and Allergies Home Medications Medication Instructions Recorded Confirmed Type albuterol sulfate 90 mcg/actuation 2 puff inhalation Q6H 11/01/21 06/08/24 History aerosol inhaler (Proventil HFA) aspirin 81 mg capsule 81 mg PO DAILY 11/01/21 06/08/24 History atorvastatin 80 mg tablet 80 mg PO DAILY 11/01/21 06/08/24 History ipratropium 0.5 mg-albuterol 3 mg 3 ml inhalation Q6H PRN Wheezing 11/01/21 06/08/24 History (2.5 mg base)/3 mL nebulization soln nitroglycerin 0.4 mg sublingual 0.4 mg sublingual Q5MIN 11/01/21 06/08/24 History tablet pantoprazole 40 mg granules 40 mg PO DAILY 11/01/21 06/08/24 History delayed-release for susp in packet ticagrelor 90 mg tablet 90 mg PO Q12H 11/01/21 06/08/24 History acetylcysteine 200 mg/mL (20 %) 3 ml inhalation BID #90 mL 11/06/21 06/08/24 Rx solution alprazolam 0.5 mg tablet (Xanax) 0.5 mg PO DAILY #3 tabs 11/06/21 06/08/24 Rx guaifenesin 600 mg tablet, 600 mg PO BID #20 tabs 11/06/21 06/08/24 Rx extended release 12 hr lidocaine 5 % topical patch 2 patch topical DAILY #30 ea 11/06/21 06/08/24 Rx budesonide-formoterol HFA 80 1 puff inhalation BID 06/08/24 06/08/24 History mcg-4.5 mcg/actuation aerosol inhaler (Symbicort) cetirizine 10 mg tablet (Zyrtec) 10 mg PO DAILY 06/08/24 06/08/24 History furosemide 20 mg tablet (Lasix) 20 mg PO DAILY PRN swelling 06/08/24 06/08/24 History montelukast 5 mg chewable tablet 10 mg PO HS 06/08/24 06/08/24 History (Singulair) prednisone 20 mg tablet 5 mg PO DAILY 06/08/24 06/08/24 History tiotropium bromide 1.25 1 inh inhalation BID 06/08/24 06/08/24 History mcg/actuation mist for inhalation (Spiriva Respimat) isosorbide mononitrate 30 mg 30 mg PO QAM #30 tabs 06/10/24 Rx tablet,extended release 24 hr metoprolol tartrate 25 mg tablet 25 mg PO Q12HR #30 tabs 06/10/24 Rx Allergies Allergy/AdvReac Type Severity Reaction Status Date / Time No Known Allergies Allergy Verified 06/08/24 21:00 Vital Signs Vital Signs - 24 hr 06/08/24 15:04 06/08/24 18:31
[2024-06-08 22:21] LABS: Troponin I < 0.012 ng/mL (0.000-0.034)
[2024-06-08] MEDS: MONTELUKAST SODIUM 10 MG TABLET PO (23:17)
[2024-06-08] MEDS: guaiFENesin 12 HR 600 MG TABCR PO (23:17)
[2024-06-08] MEDS: TICAGRELOR 90 MG TABLET PO (23:17)
[2024-06-09] VITALS (27 sets, daily range): BP systolic 121–198; BP diastolic 72–112; PULSE 70–90; RESP 16–21; TEMP 36.5–36.8; O2SAT 96–99
[2024-06-09] MEDS: ALBUTEROL SULFATE (*SP) AEROSOL 1 PUFF 2 PUFF INHALATION ×4 (02:41→20:06)
--- NOTE | 2024-06-09 08:06 | PM.IMHP ---
H&P: HPI History of Present Illness Date/Time: 06/09/24 08:06 Chief Complaint: Chest pain Narrative: Patient is a 63 y/o male, with PMH of CAD with 3 stents, COPD, HTN, HLD, who presents to the ED via EMS with c/o CP. Patient states pain began around 130 after walking up a flight of stairs. Present in L sided chest, radiating into L sided neck. Describes the pain as a heaviness/pressure. Feels somewhat similar to previous heart attacks. Patient sees Dr. Gutiérrez. Took 4 NTG prior to arrival. Rates pain a 2/10 currently. Pain was associated with nausea, diaphoresis, SOB. Patient denies cough, cold sx's, new swelling in BLE. During the evaluation in floor patient reports having 4 stents and last one was placed 2 to 3 years ago. Patient continues with ASA and Brilinta.Patient has COPD due to chronic smoker and quit smoking 10 years ago. Patient is chronic alcoholic as well with 12 pack beer every day. Currently on CIWA score. Patient uses 1L nasal O2 at home during sleep and strenuous activity. Yesterday, the patient had chest pain, which he refers to as the same pain when he had RI 2 to 3 years ago. It started around 2 pm, and he took NG around 4 tabs, each approx 5 mins apart. it didn't help, so he called 911. Chest pain was radiating to neck and left arm. Patient takes furosemide 20 mg PRN as home med. Labs: Troponin <0.012, BNP 113, WBC 10.4 CXR: Prominent markings in the lower lobes. Early pneumonia cannot be excluded. FORMERLY [facility], [facility] Past Medical History Medical History COPD (chronic obstructive pulmonary disease) COPD (chronic obstructive pulmonary disease) Coronary disease Dyslipidemia Former tobacco use Hypertension Family History Family History (Updated 06/08/24 @ 20:51 by Sepideh Pandey RN) Father Acute myocardial infarction Sibling Acute myocardial infarction Social History Social History Smoking packs per day: 2.5 Smoking cigarettes per day: 50.0 Years smoked: 29 Smoking pack-years: 72.50 Smoking status: Former smoker Tobacco type: cigarettes Second hand tobacco smoke exposure: No Alcohol intake: never Drinks per week: 72 Substance use: never Substance use type: does not use Last use: 06/07/24 Do You Feel Safe in your Home?: Yes Lack of Transportation: No Lack of Food: Never True Current Housing: I Have Housing Concerned About Future Housing: No Difficulty Paying Gas/Electric Bills: No Difficulty Paying for Meds: No Currently Unemployed: No Education: Grade School Difficulty w/ Childcare or Family Care: No Spiritual care concerns: No Meds Home Medications and Allergies Home Medications Medication Instructions Recorded Confirmed Type albuterol sulfate 90 mcg/actuation 2 puff inhalation Q6H 11/01/21 06/08/24 History aerosol inhaler (Proventil HFA) aspirin 81 mg capsule 81 mg PO DAILY 11/01/21 06/08/24 History atorvastatin 80 mg tablet 80 mg PO DAILY 11/01/21 06/08/24 History ipratropium 0.5 mg-albuterol 3 mg 3 ml inhalation Q6H PRN Wheezing 11/01/21 06/08/24 History (2.5 mg base)/3 mL nebulization soln nitroglycerin 0.4 mg sublingual 0.4 mg sublingual Q5MIN 11/01/21 06/08/24 History tablet pantoprazole 40 mg granules 40 mg PO DAILY 11/01/21 06/08/24 History delayed-release for susp in packet ticagrelor 90 mg tablet 90 mg PO Q12H 11/01/21 06/08/24 History acetylcysteine 200 mg/mL (20 %) 3 ml inhalation BID #90 mL 11/06/21 06/08/24 Rx solution alprazolam 0.5 mg tablet (Xanax) 0.5 mg PO DAILY #3 tabs 11/06/21 06/08/24 Rx guaifenesin 600 mg tablet, 600 mg PO BID #20 tabs 11/06/21 06/08/24 Rx extended release 12 hr lidocaine 5 % topical patch 2 patch topical DAILY #30 ea 11/06/21 06/08/24 Rx budesonide-formoterol HFA 80 1 puff inhalation BID 06/08/24 06/08/24 History mcg-4.5 mcg/actuation aerosol inhaler (Symbicort) cetiriz
[2024-06-09] MEDS: ACETYLCYSTEINE 20% INHAL SOLN 800 MG/4 ML VIAL 600 MG INHALATION (08:29)
[2024-06-09] MEDS: UMECLIDINIUM BROMIDE 62.5 MCG ELLIPTA 1 PUFF INHALATION (08:30)
[2024-06-09] MEDS: FLUTICASONE/SALMETEROL 45-21 MCG INHALER 1 PUFF 2 PUFF INHALATION ×2 (08:31→20:06)
[2024-06-09] MEDS: predniSONE 5 MG TABLET PO (09:25)
[2024-06-09] MEDS: TICAGRELOR 90 MG TABLET PO ×2 (09:25→20:17)
[2024-06-09] MEDS: LORATADINE 10 MG TABLET PO (09:25)
[2024-06-09] MEDS: PANTOPRAZOLE 40 MG TABLET PO (09:26)
[2024-06-09] MEDS: guaiFENesin 12 HR 600 MG TABCR PO ×2 (09:26→17:20)
[2024-06-09] MEDS: ASPIRIN 81 MG CHEWABLE TABLET PO (09:26)
[2024-06-09] MEDS: ATORVASTATIN 40 MG TABLET 80 MG PO (09:26)
[2024-06-09] MEDS: ALPRAZolam (*CRX) 0.5 MG TABLET PO (09:26)
[2024-06-09] MEDS: ARTIFICIAL TEARS OPHTH SOLN 15 ML BOTTLE 1 DROP EACH EYE (10:10)
[2024-06-09] MEDS: METOPROLOL TARTRATE 25 MG TABLET PO ×2 (11:40→20:17)
[2024-06-09] MEDS: ISOSORBIDE MONONITRATE 30 MG TAB.ER.24H PO (11:40)
--- NOTE | 2024-06-09 11:47 | PM.CNCAR ---
Assessment and Plan Assessment and plan (1) Chest pain: Code(s): R07.9 - Chest pain, unspecified Status: Acute (2) Coronary disease: Qualifiers: Coronary Disease-Associated Artery/Lesion type: [place] artery [place] vs. transplanted heart: [place] heart Associated angina: without angina Qualified Code(s): I25.10 - Atherosclerotic heart disease of [place] coronary artery without angina pectoris Code(s): I25.10 - Atherosclerotic heart disease of [place] coronary artery without angina pectoris Status: Acute Plan 1. CAD 2. Chest pain with both typical and atypical features 3. COPD 4. HTN 5.Hyperlipidemia It is my clinical impression that Mr. Sweeney has symptoms suggestive of angina. We discussed with him regarding optimization of his antianginal medications and a noninvasive evaluation or an invasive evaluation with coronary catheterization -we decide to pursue a nuclear stress test, we get the MPI today. He declined a good exercise, with stress with Lexiscan -He is not on anti anginal medications; will start him on metoprolol 25 mg twice daily and Imdur 30 mg once daily -continue aspirin statin -he is on ticagrelor 90 mg twice daily, consider decreasing the dose of 60 mg twice a day when he is seen as an outpatient -further recommendations post stress test History of Present Illness History of Present Illness Consult date/time: 06/09/24 11:47 Consult reason: chest pain Reason For Visit: Chest pain Narrative: Patient is a 63-year-old male known to have CAD s/p Prior PCI (most recently in 2021, most likely in the LCX, details not known), COPD, HTN and hyperlipemia was admitted with chest pain. He is under the care of Dr Gutiérrez as an outpatient. He came in with an episode of retrosternal chest pain which radiated to his neck. When it did not improve with sublingual nitro he came to the hospital. 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 He does have chronic stable dyspnea He did have occasional episode of chest pain in the previous several months but at rest not on exertion Is not on any anti anginal medications No recent bleeding from anywhere compliant with diet Review of Systems Review of Systems: All systems reviewed & are unremarkable except as noted in HPI and below (HPI) PMFSH Past Medical History Medical History COPD (chronic obstructive pulmonary disease) COPD (chronic obstructive pulmonary disease) Coronary disease Dyslipidemia Former tobacco use Hypertension Family History Family History (Updated 06/08/24 @ 20:51 by Sepideh Pandey RN) Father Acute myocardial infarction Sibling Acute myocardial infarction Social History Social History Smoking packs per day: 2.5 Smoking cigarettes per day: 50.0 Years smoked: 29 Smoking pack-years: 72.50 Smoking status: Former smoker Tobacco type: cigarettes Second hand tobacco smoke exposure: No Alcohol intake: never Drinks per week: 72 Substance use: never Substance use type: does not use Last use: 06/07/24 Do You Feel Safe in your Home?: Yes Lack of Transportation: No Lack of Food: Never True Current Housing: I Have Housing Concerned About Future Housing: No Difficulty Paying Gas/Electric Bills: No Difficulty Paying for Meds: No Currently Unemployed: No Education: Grade School Difficulty w/ Childcare or Family Care: No Spiritual care concerns: No Meds Home Medications and Allergies Home Medications Medication Instructions Recorded Confirmed Type albuterol sulfate 90 mcg/actuation 2 puff inhalation Q6H 11/01/21 06/08/24 History aerosol inhaler (Proventil HFA) aspirin 81 mg capsule 81 mg PO DAILY 11/01/21 10
--- NOTE | 2024-06-09 11:54 | PC.NURSE ---
Cardiac stress test moved to 06/10 due to patient eating breakfast and intake of caffeine. NPO after midnight and consent printed. Patient aware of schedule change and willing to proceed.
--- NOTE | 2024-06-09 12:57 | PC.NURSE ---
Patient to CT and Ultrasound @ [id number]
--- NOTE | 2024-06-09 14:36 | PC.NURSE ---
Return form CT and U/S @ [id number]
--- NOTE | 2024-06-09 20:12 | PCRCNOTE ---
Pt denied PM Mucomyst nebulizer tx. Pt states he only takes this once a day at home and does not want this evening tx. Pt received this tx at 0800 this morning. Pt lung sounds clear/diminished at this time. Inhaler tx's still given as ordered.
[2024-06-09] MEDS: ACETAMINOPHEN 325 MG TABLET 650 MG PO (20:17)
[2024-06-09] MEDS: MONTELUKAST SODIUM 10 MG TABLET PO (20:17)
[2024-06-10] VITALS (14 sets, daily range): BP systolic 117–150; BP diastolic 77–108; PULSE 67–83; RESP 16–20; TEMP 36.5–36.7; O2SAT 96–100
[2024-06-10] MEDS: ACETAMINOPHEN 325 MG TABLET 650 MG PO (02:14)
[2024-06-10 05:25] LABS: Hematocrit 41.3 % (42.0-52.0); Hemoglobin 13.5 g/dL (14.0-18.0); Mean Corpuscular HGB Conc 32.7 g/dl (32-36); Mean Corpuscular Hemoglobin 31.5 pg (26-34); Mean Corpuscular Volume 96.5 fl (80-100); Mean Platelet Volume 12.6 fl (7.4-10.4); Platelet Count Result 115 k/mm3 (150-375); Red Blood Count 4.28 M/mm3 (4.6-6.20); Red Cell Distribution Width 13.7 % (11.5-14.5); White Blood Count 8.4 K/mm3 (4.5-10.0)
[2024-06-10 05:32] LABS: Alanine Aminotransferase 45 U/L (6-50); Albumin Level 3.8 g/dL (3.5-5.1); Alkaline Phosphatase 80 U/L (38-126); Anion Gap 6 mmol/L (4-12); Aspartate Amino Transferase 36 U/L (17-59); Bilirubin,Total 0.5 mg/dL (0.2-1.3); Blood Urea Nitrogen 22 mg/dL (9-20); Carbon Dioxide 28 mmol/L (22-30); Chloride 105 mmol/L (98-107); Estimated CRCL calculation 74 ml/min; Estimated Glomerular Filt Rate > 60; Glucose 89 mg/dL (65-110); Potassium 4.2 mmol/L (3.4-5.0); Sodium 139 mmol/L (137-145)
[2024-06-10] MEDS: ACETYLCYSTEINE 20% INHAL SOLN 800 MG/4 ML VIAL 600 MG INHALATION (07:27)
[2024-06-10] MEDS: ALBUTEROL SULFATE (*SP) AEROSOL 1 PUFF 2 PUFF INHALATION ×2 (07:27→13:03)
[2024-06-10] MEDS: FLUTICASONE/SALMETEROL 45-21 MCG INHALER 1 PUFF 2 PUFF INHALATION (07:27)
[2024-06-10] MEDS: UMECLIDINIUM BROMIDE 62.5 MCG ELLIPTA 1 PUFF INHALATION (07:27)
[2024-06-10] MEDS: PANTOPRAZOLE 40 MG TABLET PO (08:16)
[2024-06-10] MEDS: ATORVASTATIN 40 MG TABLET 80 MG PO (08:16)
[2024-06-10] MEDS: guaiFENesin 12 HR 600 MG TABCR PO (08:16)
[2024-06-10] MEDS: METOPROLOL TARTRATE 25 MG TABLET PO (08:16)
[2024-06-10] MEDS: TICAGRELOR 90 MG TABLET PO (08:16)
[2024-06-10] MEDS: ASPIRIN 81 MG CHEWABLE TABLET PO (08:16)
[2024-06-10] MEDS: predniSONE 5 MG TABLET PO (08:16)
[2024-06-10] MEDS: LORATADINE 10 MG TABLET PO (08:16)
[2024-06-10] MEDS: ISOSORBIDE MONONITRATE 30 MG TAB.ER.24H PO (08:16)
[2024-06-10] MEDS: LOPERAMIDE HCL 2 MG CAPSULE PO (09:27)
[2024-06-10] MEDS: ONDANSETRON INJ 4 MG/2 ML VIAL IV PUSH (09:30)
--- NOTE | 2024-06-10 10:25 | EST_ITS ---
Patient Info Name: Azeem Sweeney Age: 63 years : 1960 Gender: Male Ht: 76 in Wt: 230 lbs BSA: 2.38 m2 HR: 78 bpm BP: 129 / 97 mmHg Heart Rhythm: Sinus Rhythm Exam Date: 06/10/2024 10:42 AM Exam Location: Echo Lab Patient Status: Outpatient Admit Date: 06/08/2024 Staff Ordering Physician: Austin Person MD Attending Provider: Ivett Salas MD Exercise Technologist: Arianna Mota CT Exercise Physician: Abe Guerrero MD Exam Type: CA stress robert w NM Study Info Indications R07.89 - Other chest pain A regadenoson stress test was performed. Summary 1. Normal sinus rhythm - normal ECG. 2. No ST or T-wave abnormalities following Lexiscan infusion. 3. Clinically and electrocardiographically unremarkable Lexiscan stress test. 4. Myocardial perfusion imaging result to be reported by Radiology. Protocol: Lexiscan Stress ECG Details Stage: REST Duration (min): 0 min : 59 sec HR (bpm): 76 SBP (mmHg): 129 DBP (mmHg): 97 Stage: REST Duration (min): 5 min : 52 sec HR (bpm): 72 SBP (mmHg): 129 DBP (mmHg): 97 Stage: STAGE 1 Duration (min): 0 min : 59 sec HR (bpm): 91 SBP (mmHg): 129 DBP (mmHg): 97 Stage: RECOVERY Duration (min): 1 min : 0 sec HR (bpm): 93 SBP (mmHg): 129 DBP (mmHg): 97 Stage: RECOVERY Duration (min): 2 min : 0 sec HR (bpm): 90 SBP (mmHg): 129 DBP (mmHg): 97 Stage: RECOVERY Duration (min): 3 min : 0 sec HR (bpm): 91 SBP (mmHg): 132 DBP (mmHg): 79 Stage: RECOVERY Duration (min): 3 min : 4 sec HR (bpm): 89 SBP (mmHg): 132 DBP (mmHg): 79 Rest HR: 72 bpm Peak HR: 96 bpm Rest Sys BP: 129 mmHg Peak Sys BP: 132 mmHg Max Pred HR: 156 bpm % Max Pred HR: 62 % Target HR: 133 bpm Max RPP: 12,672 bpm*mmHg Termination Reason: Completed protocol Total Time: 1 min : 0 sec Rest Kamara BP: 97 mmHg Peak Kamara BP: 79 mmHg Total Dose: 0.4 mg Resting ECG Normal sinus rhythm - normal ECG. Stress ECG No ST or T-wave abnormalities following Lexiscan infusion. Report Signatures
--- NOTE | 2024-06-10 13:37 | PM.PNCARD ---
Progress Note: A&P Assessment and Plan (1) Chest pain: Code(s): R07.9 - Chest pain, unspecified Status: Acute (2) Coronary disease: Qualifiers: Coronary Disease-Associated Artery/Lesion type: [place] artery [place] vs. transplanted heart: [place] heart Associated angina: without angina Qualified Code(s): I25.10 - Atherosclerotic heart disease of [place] coronary artery without angina pectoris Code(s): I25.10 - Atherosclerotic heart disease of [place] coronary artery without angina pectoris Status: Acute Plan 1. CAD 2. Chest pain with both typical and atypical features 3. COPD 4. HTN 5.Hyperlipidemia MPI showed mod sized inf wall defect with no ischemic; EF 59% - Continue anti anginal medications; Metoprolol 25 mg twice daily and Imdur 30 mg once daily -continue aspirin statin -he is on ticagrelor 90 mg twice daily, consider decreasing the dose of 60 mg twice a day when he is seen as an outpatient -Okay to discharge home. Follow-up with cardiology as na outpatient Subjective Date/time seen: 06/10/24 13:37 Interval history: No acute events overnight No more episodes of chest pain Exam Const: General: comfortable Eyes: General: appearance normal, both eyes and all related structures Neck: Neck: supple and no JVD Resp: Effort & Inspection: normal respiratory effort Auscultation: clear to auscultation bilaterally Cardio: Rate: regular rate Rhythm: regular rhythm GI: Auscultation: normal bowel sounds Neuro: Speech: normal speech Motor exam (neuro): 5/5 motor strength present throughout and Normal motor muscle tone present throughout Extrem: General: normal to inspection Objective Data Vital Signs Vital Signs: Vital Signs - 24 hr 06/09/24 14:00 06/09/24 16:00 06/09/24 16:55 Temperature 36.7 C Pulse Rate 82 77 86 Pulse Rate [Bilateral Pedal (Dorsalis Pedis)] Respiratory Rate 20 Blood Pressure 198/72 H Pulse Oximetry 97 Oxygen Delivery 06/09/24 16:00 06/09/24 18:00 06/09/24 19:53 Temperature 36.8 C Pulse Rate 85 84 Pulse Rate [Bilateral Pedal (Dorsalis Pedis)] Respiratory Rate 16 Blood Pressure 121/78 Pulse Oximetry 97 Oxygen Delivery Room Air 06/09/24 20:07 06/09/24 20:12 06/09/24 20:17 Temperature Pulse Rate 88 83 Pulse Rate [Bilateral Pedal (Dorsalis Pedis)] Respiratory Rate 18 Blood Pressure Pulse Oximetry 96 Oxygen Delivery Room Air 06/09/24 20:00 06/09/24 20:00 06/09/24 20:00 Temperature Pulse Rate 84 83 Pulse Rate [Bilateral Pedal (Dorsalis Pedis)] Respiratory Rate 18 Blood Pressure 121/78 Pulse Oximetry 96 Oxygen Delivery Room Air 06/10/24 00:00 06/10/24 00:00 06/10/24 04:00 Temperature 36.5 C 36.6 C Pulse Rate 83 75 80 Pulse Rate [Bilateral Pedal (Dorsalis Pedis)] Respiratory Rate 18 18 16 Blood Pressure 117/77 133/84 Pulse Oximetry 96 98 100 Oxygen Delivery Room Air 06/10/24 04:00 06/10/24 04:00 06/09/24 22:00 Temperature Pulse Rate 80 72 Pulse Rate [Bilateral Pedal (Dorsalis Pedis)] Respiratory Rate 16 Blood Pressure 133/84 Pulse Oximetry 100 Oxygen Delivery Room Air 06/10/24 00:00 06/10/24 02:00 06/10/24 04:00 Temperature Pulse Rate 75 78 70 Pulse Rate [Bilateral Pedal (Dorsalis Pedis)] Respiratory Rate Blood Pressure Pulse Oximetry Oxygen Delivery 06/10/24 07:19 06/10/24 06:00 06/10/24 07:31 Temperature 36.7 C Pulse Rate 75 80 73 Pulse Rate [Bilateral Pedal (Dorsalis Pedis)] Respiratory Rate 20 18 Blood Pressure 150/103 H Pulse Oximetry 99 Oxygen Delivery 06/10/24 07:31 06/10/24 07:39 06/10/24 08:16 Temperature Pulse Rate 80 77 Pulse Rate [Bilateral Pedal (Dorsalis Pedis)] Respiratory Rate 18 Blood Pressure Pulse Oximetry 96 Oxygen Delivery Room Air 06/10/24 08:00 06/10/24 08:00 06/10/24 10:00 Temperature Pulse Rate 76 77 Pulse Rate [Bilateral
--- NOTE | 2024-06-10 15:13 | PM.DS ---
DS: Admitting Diagnosis Discharge Date 06/10/2024 Admitting Diagnosis Chest pain DS: Discharge Diagnosis Discharge Diagnosis (1) Chest pain: Code(s): R07.9 - Chest pain, unspecified Status: Acute (2) COPD (chronic obstructive pulmonary disease): Qualifiers: COPD type: unspecified COPD Qualified Code(s): J44.9 - Chronic obstructive pulmonary disease, unspecified Code(s): J44.9 - Chronic obstructive pulmonary disease, unspecified Status: Acute (3) Anxiety: Code(s): F41.9 - Anxiety disorder, unspecified Status: Acute (4) Bilateral lower extremity edema: Code(s): R60.0 - Localized edema Status: Acute (5) Hyperlipidemia: Qualifiers: Hyperlipidemia type: mixed hyperlipidemia Qualified Code(s): E78.2 - Mixed hyperlipidemia Code(s): E78.5 - Hyperlipidemia, unspecified Status: Acute (6) PND (paroxysmal nocturnal dyspnea): Code(s): R06.00 - Dyspnea, unspecified Status: Acute Plan # Chest pain 2/2 unstable angina vs musculoskeletal vs PNA -Hx 4 stents -Trops neg -ECHO ordered -Possible unstable angina -Denies any illicit drug use -MERLY score 5 -ECHO and Carotid US -Imdur 30 PO QD -Ranolazine will be considered after discussing with Cardio #COPD vs PNA -CXR:Prominent markings in the lower lobes. Early pneumonia cannot be excluded. -Ordered CT -Nasal O2 PRN -Cont Duoneb # Chronic alcohol -CIWA score DS: Summary Hospital Course Hospital Course: Patient is a 63 y/o male, with PMH of CAD with 3 stents, COPD, HTN, HLD, who presents to the ED via EMS with c/o CP. Patient states pain began around 130 after walking up a flight of stairs. Present in L sided chest, radiating into L sided neck. Describes the pain as a heaviness/pressure. Feels somewhat similar to previous heart attacks. Patient sees Dr. Gutiérrez. Took 4 NTG prior to arrival. Rates pain a 2/10 currently. Pain was associated with nausea, diaphoresis, SOB. Patient denies cough, cold sx's, new swelling in BLE. During the evaluation in floor patient reports having 4 stents and last one was placed 2 to 3 years ago. Patient continues with ASA and Brilinta.Patient has COPD due to chronic smoker and quit smoking 10 years ago. Patient is chronic alcoholic as well with 12 pack beer every day. Currently on CIWA score. Patient uses 1L nasal O2 at home during sleep and strenuous activity. Yesterday, the patient had chest pain, which he refers to as the same pain when he had CT 2 to 3 years ago. It started around 2 pm, and he took NG around 4 tabs, each approx 5 mins apart. it didn't help, so he called 911. Chest pain was radiating to neck and left arm. Patient takes furosemide 20 mg PRN as home med. Cardiology was consulted and performed a nuclear stress test as the patient declined good exercise with the stress with Lexiscan. Patient was started with metoprolol 25 mg b.i.d. and Imdur 30 mg p.o. q.d. by the Cardiology. Today patient underwent MPI showed mod sized inf wall defect with no ischemic; EF 59%. As per Cardiology, he is on ticagrelor 90 mg twice daily, consider decreasing the dose of 60 mg twice a day when he is seen as an outpatient. Patient currently denies any chest pain shortness O breath or diaphoresis. In the event of any chest pain seek immediate care. Status at Discharge Cognitive/behavioral status at discharge: Stable Time Spent with Patient Time attestation: Total time spent providing and/or coordinating discharge services: 45 minute DS: Data Data Completed and Pending Labs on day of discharge: Labs from last 24 hours 06/10/24 04:17 WBC 8.4 RBC 4.28 L Hgb 13.5 L Hct 41.3 L MCV 96.5 MCH 31.5 MCHC 32.7 RDW 13.7 Plt Count 115 L MPV 12.6 H Sodium 139 Potassium 4.2 Chloride 105 Carbon Dioxide 28 Anion Gap 6 BUN 22 H Creatinine 1.10 Estim Creat Clear Calc 74 Estimated GFR > 60 Glucose 89 Calcium 9.0 Total Bilirubin 0.
== END 2024-06-10 16:01 | disposition home or self-care (01) ==
LOC: ANHED 19:51 → ANHIMU 21:09
PROVIDERS: Admitting Provider Internal Medicine; Emergency Provider Emergency Medicine; PCP Internal Medicine; Visit Provider General Practice
DX: R07.89 Other chest pain (principal); I25.10 Atherosclerotic heart disease of native coronary artery without angina pectoris; I25.2 Old myocardial infarction; M54.2 Cervicalgia; J44.9 Chronic obstructive pulmonary disease, unspecified; F41.9 Anxiety disorder, unspecified; R60.0 Localized edema; R06.00 Dyspnea, unspecified; I10 Essential (primary) hypertension; E78.2 Mixed hyperlipidemia; F10.90 Alcohol use, unspecified, uncomplicated; Z79.82 Long term (current) use of aspirin; Z79.899 Other long term (current) drug therapy; Z87.891 Personal history of nicotine dependence; Z95.5 Presence of coronary angioplasty implant and graft; Z99.81 Dependence on supplemental oxygen; Z79.51 Long term (current) use of inhaled steroids; Z79.01 Long term (current) use of anticoagulants
CPT/HCPCS: 36415; 71046; 71250; 74150; 78452; 80053; 83690; 83880; 84484; 85025; 85027; 85055; 85610; 85730; 93005; 93017; 93880; 94640; 96374; 99285; A9270; A9502; G0378; J2405; J2785; J7512

== ENCOUNTER 2024-07-16 00:47 | Day surgery (SDC) | payer OTHER, SELFPAY ==
[2024-07-15 13:48] VITALS: BMI 28.5
[2024-07-16] VITALS (9 sets, daily range): BP systolic 115–170; BP diastolic 87–120; PULSE 63–83; RESP 12–17; TEMP 36.9; O2SAT 94–96; BMI 28.3
[2024-07-16 10:20] LABS: Basophils Absolute Auto 0.1 K/mm3 (0.0-0.1); Basophils Percent Auto 0.9 % (0.2-1.2); Eosinophils Absolute Auto 0.1 K/mm3 (0-0.3); Eosinophils Percent Auto 1.3 % (0-4.4); Hematocrit 42.2 % (42.0-52.0); Hemoglobin 14.3 g/dL (14.0-18.0); Immature Granulocyte Absolute 0.02 K/mm3 (0.00-0.031); Immature Granulocyte Percent A 0.2 % (0-0.5); Lymphocytes Absolute Auto 1.86 K/mm3 (0.9-3.2); Lymphocytes Percent Auto 22.7 % (18.3-44.2); Mean Corpuscular HGB Conc 33.9 g/dl (32-36); Mean Corpuscular Hemoglobin 31.6 pg (26-34); Mean Corpuscular Volume 93.4 fl (80-100); Mean Platelet Volume 12.8 fl (7.4-10.4); Monocytes Absolute Auto 0.5 K/mm3 (0.1-0.6); Monocytes Percent Auto 6.1 % (2.6-8.5); Neutrophils Absolute Auto 5.6 K/mm3 (1.3-6.7); Neutrophils Percent Auto 68.8 % (45.5-73.1); Platelet Count Result 132 k/mm3 (150-375); Red Blood Count 4.52 M/mm3 (4.6-6.20); Red Cell Distribution Width 13.5 % (11.5-14.5); White Blood Count 8.2 K/mm3 (4.5-10.0)
[2024-07-16 10:31] LABS: Anion Gap 10 mmol/L (4-12); Blood Urea Nitrogen 20 mg/dL (9-20); Calcium 9.5 mg/dL (8.4-10.2); Carbon Dioxide 22 mmol/L (22-30); Chloride 105 mmol/L (98-107); Estimated CRCL calculation 83 ml/min; Estimated Glomerular Filt Rate > 60; Glucose 112 mg/dL (65-110); Sodium 137 mmol/L (137-145)
--- NOTE | 2024-07-16 12:56 | P.SEDATION_ITS ---
Moderate Sedation Note-Pt Data Patient Data Allergies Allergy/AdvReac Type Severity Reaction Status Date / Time No Known Allergies Allergy Verified 07/16/24 10:09 Home Medications Medication Instructions Recorded Confirmed Type albuterol sulfate 90 mcg/actuation 2 puff inhalation Q6H 11/01/21 07/16/24 History aerosol inhaler (Proventil HFA) aspirin 81 mg capsule 81 mg PO DAILY 11/01/21 07/16/24 History atorvastatin 80 mg tablet 80 mg PO DAILY 11/01/21 07/16/24 History ipratropium 0.5 mg-albuterol 3 mg 3 ml inhalation Q6H PRN Wheezing 11/01/21 07/16/24 History (2.5 mg base)/3 mL nebulization soln pantoprazole 40 mg granules 40 mg PO DAILY 11/01/21 07/16/24 History delayed-release for susp in packet ticagrelor 90 mg tablet 90 mg PO Q12H 11/01/21 07/16/24 History acetylcysteine 200 mg/mL (20 %) 3 ml inhalation BID #90 mL 11/06/21 07/16/24 Rx solution alprazolam 0.5 mg tablet (Xanax) 0.5 mg PO DAILY #3 tabs 11/06/21 07/16/24 Rx cetirizine 10 mg tablet (Zyrtec) 10 mg PO DAILY 06/08/24 07/16/24 History furosemide 20 mg tablet (Lasix) 20 mg PO DAILY PRN swelling 06/08/24 06/08/24 History montelukast 5 mg chewable tablet 10 mg PO HS 06/08/24 07/16/24 History (Singulair) prednisone 20 mg tablet 5 mg PO DAILY 06/08/24 07/16/24 History tiotropium bromide 1.25 1 inh inhalation BID 06/08/24 07/16/24 History mcg/actuation mist for inhalation (Spiriva Respimat) isosorbide mononitrate 30 mg 30 mg PO QAM #30 tabs 06/10/24 07/16/24 Rx tablet,extended release 24 hr Sedation/Anesthesia: No previous sedation/anesthesia problems (including family history). [facility] Past Medical History Medical History COPD (chronic obstructive pulmonary disease) COPD (chronic obstructive pulmonary disease) Coronary disease Dyslipidemia Former tobacco use Hypertension Family History Family History (Updated 06/08/24 @ 20:51 by Sepideh Pandey RN) Father Acute myocardial infarction Sibling Acute myocardial infarction Social History Social History Smoking packs per day: 2.5 Smoking cigarettes per day: 50.0 Years smoked: 29 Smoking pack-years: 72.50 Smoking status: Former smoker Tobacco type: cigarettes Smokeless tobacco user: chewing tobacco Second hand tobacco smoke exposure: No Smoking end date: 09/02/13 Alcohol intake: current Drinks per week: 42 Alcohol use details: Drinks six beers per day or better Substance use: never Substance use type: does not use Last use: 06/07/24 Do You Feel Safe in your Home?: Yes Lack of Transportation: No Lack of Food: Never True Current Housing: I Have Housing Concerned About Future Housing: No Difficulty Paying Gas/Electric Bills: No Difficulty Paying for Meds: No Currently Unemployed: No Education: Grade School Difficulty w/ Childcare or Family Care: No Living arrangements: other Additional living arrangements comments: Lives with his girlfriend and his mother Spiritual care concerns: No Mod Sed Physical Exam Physical Exam Pre Procedural Exam: Normal: Heart Rate and Heart Rhythm Hours since solid foods: 12 Hours since liquid intake: 12 Mallampati Classification: class II Internal Medicine - PN: Obj Da Vital Signs Vital Signs: Vital Signs - 24 hr 07/16/24 10:09 Temperature 36.9 C Pulse Rate 79 Respiratory Rate 13 Blood Pressure 170/120 H Pulse Oximetry 95 Oxygen Delivery Room Air Labs 07/16/24 10:11 07/16/24 10:11 Labs: Laboratory Results - last 24 hr 07/16/24 10:11 WBC 8.2 RBC 4.52 L Hgb 14.3 Hct 42.2 MCV 93.4 MCH 31.6 MCHC 33.9 RDW 13.5 Plt Count 132 L MPV 12.8 H Immature Gran % (Auto) 0.2 Neut % (Auto) 68.8 Lymph % (Auto) 22.7 [place] % (Auto) 6.1 Eos % (Auto) 1.3 Baso % (Auto) 0.9 Lymph # (Auto) 1.86 [place] # (Auto) 0.5 Eos # (Auto) 0.1 Baso # (Auto) 0.1 Abs Immat Gran (auto) 0.02 Absolute Neuts (auto) 5.6 Absolute Nucleated RBC 0.000 Nucleated RBC % 0.0 Sodium 137 Potassium 4.0 Chloride 105 Carbon Dioxide 22 Anion Gap 10 BUN 20 Creatinine 1.00 Estim Creat Clear Calc 83 Estimated GFR > 60 Glucose 112 H Calcium 9.5 ASA Classification/Sedation ASA Classification/Sedation ASA Class: III Emergent: No Risks: Risks, benefits and alternatives explained and patient/family accepted plan for sedation. Patient re-evaluated immediately prior to sedation.
--- NOTE | 2024-07-16 12:56 | WPDHPUPDATE1 ---
History and Physical Update Update Date/Time: 07/16/24 12:56 History and Physical has been reviewed, including an updated exam of the patient. There are NO changes in the patient's condition. Risks, benefits, and alternatives have been discussed and questions answered. Patient agrees to proceed with procedure.
--- NOTE | 2024-07-16 14:10 | P.PCNCC_ITS ---
Cardiac Cath Procedure Note Date of procedure:: 07/16/24 Performing physician:: CATHETERIZATION LABORATORY REPORT Procedure Date: 07/16/2024 Referring Physician: Dr. Gutiérrez Anesthesia: Versed and Fentanyl were ordered and given in my presence at 1324, procedure ended at 1406. Supervision of nurse, James Carroll monitored moderate sedation with 2mg Versed and 50mcg Fentanyl was provided for 42 minutes. 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 Risk of complications including but not limited to bleeding, infection, arrhythmia, stroke, worsening kidney function, blood loss, groin hematoma, limb loss, emergency coronary artery bypass grafting, and even were discussed with the patient and all questions were answered. The patient understood and wished to proceed. Time out called, patient name, date of , medical record number, allergies, procedure performed, identify Home Weatherizing Worker, patient and staff member concurred with accurate data, procedure carried on. Findings: LEFT HEART CATHETERIZATION FINDINGS: 1. Left main: The left main coronary artery is widely patent without any significant obstructive disease. 2. Left anterior descending: The LAD gives off 2 diagonal branches. Second diagonal branch has a proximal 50% stenosis. There is a patent stent in the proximal LAD. In the mid LAD there is a focal area of 50% stenosis at the bifurcation of the 2nd diagonal branch. The remainder of the LAD is a large vessel that wraps around the apex and has 10-20% diffuse stenosis. 3. Left circumflex: The left circumflex artery and the main marginal branches have mild luminal irregularities without any significant obstructive angiographic disease. Patent stent in the mid circumflex into OM1 branch. Patent stent in mid OM1 branch. 4. Right coronary artery: The RCA is a moderate size dominant vessel that has a focal 90-95% stenosis in its mid body. The right PDA has 50-60% stenosis. 5. Left ventricle: A. End-diastolic pressure 25 mmHg. B. LV gram deferred. C. No significant gradient across aortic valve on catheter pullback. 6. Opening AO pressure 178/109 and closing AO pressure 180/90 Description of Procedure: Informed consent signed and placed in the chart. Patient transferred to photographic laboratory supervisor room. Prepped and draped in usual sterile fashion. 2% lidocaine in right groin area. Micropuncture needle used to access right common femoral artery with Seldinger technique under fluoroscopic guidance. J wire advanced, micropuncture cannula placed. Right iliofemoral angiogram performed, access confirmed and micropuncture cannula exchanged for 6-FR sheath. 5F JL4 diagnostic catheter engaged Left Main Coronary Artery. 5F JR4 was unable to engage the RCA and switch out for an AR mod to engage the Right Coronary Artery. Multiple orthogonal angiogram obtained and reviewed 5F JR4 diagnostic catheter crossed aortic valve to obtain LVEDP, LV angiogram deferred. Procedure Description for PCI: Heparin was used for anticoagulation (ACT maintained above 250) Patient loaded with heparin at 70 units/kg. 6F AL 0.75 guide catheter was used to intubate the RCA. 0.014 Runthrough coronary wire was passed in to the distal rPDA. Given that the plaque morphology is most likely soft plaque, a 2.75 mm x 12 [place] WILLEM was attempted to cross the lesion however was unable to cross. At this time a 2.5mm x 10 balloon was used to pre dilate the lesion with good angiographic results. After which stent was once again unable to cross. At this time, a 2nd run-through wire was used as a philip wire was negotiated into the right PDA. The [id number] [place] WILLEM successfully crossed and deployed at 15 atmospheres. The coronary wires were removed under fluoroscopy and final angiography demonstrated excellent results. No angiographic complications identified. Assessment: Successful PCI to the mid RCA with a 2.75 x 12mm [place] WILLEM with excellent angiographic results Post Operative Condition: Stable No significant blood loss Disposition: Home Plan: The patient will be monitored in the recovery area. DAPT for 1 year followed by ASA indefinitely. Continue aggressive medical therapy. Ed Mosley Interventional Cardiology
[2024-07-16 14:28] LABS: Activated Clotting Time 250 SEC (74-137)
[2024-07-16] MEDS: ACETAMINOPHEN 500 MG TABLET 1000 MG PO (16:41)
--- NOTE | 2024-07-16 17:29 | SUR.PHASEII ---
pt refused detailed discharge instructions r/t desire to be discharge sharon. pt not making eye contact and very dismissive of this rns teaching regarding s/p cath groin care. pt encouraged to listen and asked if pt had any questions. pt denied any questions or concerns.
== END 2024-07-16 17:28 | disposition home or self-care (01) ==
PROVIDERS: PCP Internal Medicine; Visit Provider Internal Medicine
PROC: 4A023N7 Measurement of Cardiac Sampling and Pressure, Left Heart, Percutaneous Approach (ICD-10-PCS; CPT 93452; principal; 2024-07-16 11:30)
DX: I25.119 Atherosclerotic heart disease of native coronary artery with unspecified angina pectoris (principal); J44.9 Chronic obstructive pulmonary disease, unspecified; E78.5 Hyperlipidemia, unspecified; I10 Essential (primary) hypertension; Z79.51 Long term (current) use of inhaled steroids; Z79.82 Long term (current) use of aspirin; Z79.52 Long term (current) use of systemic steroids; Z87.891 Personal history of nicotine dependence; Z82.49 Family history of ischemic heart disease and other diseases of the circulatory system
CPT/HCPCS: 36415; 80048; 85025; 93458; A9270; C1725; C1760; C1769; C1874; C1887; C1894; C9600; G0269; J0360; J1644; J2003; J2250; J2305; J3010; J7040

== ENCOUNTER 2024-10-22 08:17 | Outpatient (CLI) | payer OTHER, SELFPAY ==
--- NOTE | ~2024-10-22 | MR_ITS ---
MRI of the lumbar spine Clinical History: Pain Technique: Axial T2-weighted images, and sagittal T1-weighted, T2-weighted, and T2 fat-sat images wer e acquired. Findings: There is no acute fracture or subluxation. No suspicious bone marrow signal abnormality see n. At L1-L2, there is moderate to advanced degenerative disc narrowing. There is chronic irregularity at the inferior endplate of L1 anteriorly. No disc bulge or herniation. Minimal facet hypertrophy. No s anthony canal stenosis or neural foraminal narrowing. At L2-L3, there is no disc bulge or herniation. No spinal canal stenosis or neural foraminal narrowin g. At L3-L4, there is no significant disc bulge or herniation. There is minimal facet hypertrophy. No sp inal canal stenosis or neural foraminal narrowing. At L4-L5, there is minimal disc bulge with moderate facet arthropathy. No vivi central canal stenosi s. No neural foraminal narrowing. At L5-S1, there is minimal disc bulge with mild facet arthropathy. No central canal stenosis or neura l foraminal narrowing. Paravertebral soft tissues are unremarkable. Impression: Mild degenerative spondylosis, as above. Reviewed, dictated and finalized at location M. SCRIPT SOFTWARE ENGINEER Impression: Mild degenerative spondylosis, as above.
--- OUTSIDE RECORDS SUMMARY | 2024-10-22 08:25 | XMS_ITS | Clinical Summary ---
Author Organization [facility] Address [address], [facility] [address] [place] [address] Phone Care Team Providers Care Dance Critic Name Role Phone Ivon Castañeda MD Primary Care Provider [phone] Robert Pierre MD Unavailable [phone] Allergies No known active allergies Medications clopidogrel (PLAVIX) 75 MG Tablet Take 75 mg by mouth daily. Active nitroGLYCERIN (NITRO-BID) 2 % Ointment Apply 0.5 Inches as needed. Active atorvastatin (LIPITOR) 20 MG Tablet Take 20 mg by mouth daily. Active Aspirin 81 MG Tablet Take 81 mg by mouth daily. Active Active Problems Problem Noted Date Diagnosed Date Lung mass 03/23/2016 Social History Tobacco Use Types Packs/Day Years Used Date Smoking Tobacco: Some Days Cigarettes 2 44.1 Started: 09/02/1980 Alcohol Use Standard Drinks/Week Comments Yes 0 (1 standard drink = 0.6 oz pur e alcohol) Sex and Gender Information Value Date Recorded Sex Assigned at Not on file Legal Sex Male 9:41 AM CDT Gender Identity Not on file Sexual Orientation Not on file Last Filed Vital Signs Vital Sign Reading Time Taken Comments Blood Pressure 132/80 04/11/2016 11:44 AM CDT Pulse 85 04/11/2016 11:44 AM CDT Temperature 37 C (98.6 F) 04/11/2016 11:44 AM CDT Respiratory Rate 20 04/11/2016 11:4 4 AM CDT Oxygen Saturation 96% 04/11/2016 11: 44 AM CDT Inhaled Oxygen Concentration - - Weight 81.1 kg (178 lb 12.8 oz) 016 11:44 AM CDT Height 191.8 cm (6' 3.5 ) 04/11/2016 11 :44 AM CDT Body Mass Index 22.05 04/11/2016 11:44 AM CDT Plan of Treatment Health Maintenance Due Date Last Done Comments Hepatitis C Virus (HCV) Screening 1960 TdaP Immunization 1960 Colonoscopy 12/06/2004 Colorectal Cancer Screening 12/06/2004 Cologuard 12/06/2009 Immunochemical Fecal Occult Blood 12/06/2009 Pneumococcal Immunization (5 0+ years) (1 of 1 - PCV) 12/06/2009 Zoster Immunization (1 of 2) 12/06/2009 PSA Discussion 12/06/2014 Influenza Immunization (#1) 2024 SARS-COV-2 Immunization ( - season) 2024 Respiratory Syncytial Virus (RSV) Immunization (Adult) (1 - 1-dose 75+ series) 12/06/2034 Hepatitis B Immunization Aged Out No longer eligible based on patient's age to complete this topic Meningococcal Immunization (ACWY) Aged Out No longer eligible based on patient's age to complete this topic Pneumococcal Immunization Combined Aged Out No longer eligible based on patient's age to complete this topic Rotavirus Immunization Aged Out No lo nger eligible based on patient's age to complete this topic Insurance [place]ICAID [place] Care Teams Dance Critic Relationship Specialty Start Date End Date Ivon Castañ[place] [address] [place] [address] PCP - General Internal Medicine 03/28/16 [place] [address] [place] [address] Consulting Physician Internal Medicine 03/28/16
--- OUTSIDE RECORDS SUMMARY | 2024-10-22 08:25 | XMS_ITS | Referral Summary ---
Author Organization [facility] [employer] Address [address] [place] [address] Care Team Providers Care Creel Operator Name Role Phone Lester July Hermilo AYALA-OCULARIST Primary Care Provider Source Comments [facility] [employer],non-owned Affiliates and Associated Physician Practices is amultiple site organization consisting of ambulatory clinics and hospital sitesin [place], [place], [place] and [place]. This disclosure is being madepursuant to the Care Everywhere program and may not contain all information available regarding this patient. Last updated 18.[employer] Allergies No known active allergies Medications * Be aware that medications may not be up to date on this document. Alwaysverify current medications with the patient. Medication Sig Dispensed Refills Start Date End Date Status acetylcysteine (Mucomyst) 20 % solution Inhale 4 mL by mouth every 4 hours Active ALPRAZolam (Xanax) 0.5 MG tablet Take 1 (one) tablet by mouth at bedtime Active atorvastatin (Lipitor) 80 MG tablet Take 1 (one) tablet by mouth at bedtime Active ticagrelor (Brilinta) 90 MG tablet Take 1 (one) tablet by mouth 2 times daily Active Xhjflvg-Znxmvdnujfv-Ip rmoterol (Breztri Aerosphere) 160-9-4.8 MCG/ACT AERO Active Fluticasone-Umeclidin- Vilant (Trelegy) 100-62.5-25 MCG/ACT Inhale 1 (one) puff by mouth once daily Active furosemide (Lasix) 20 MG tablet Take 1 (one) tablet by mouth once daily Active guaiFENesin ER 12hr (Mucinex) 600 MG tablet Take 1 (one) tablet by mouth every 12 hours Active HYDROcodone-acetaminop hen (Savage) 5-325 MG tablet Take 1 (one) tablet by mouth every 6 hours as needed for Pain Active Ipratropium-Albuterol (DUONEB IN) Active irbesartan (Avapro) 300 MG tablet Take 1 (one) tablet by mouth once daily Active ondansetron (Zofran) 4 MG tablet Take 1 (one) tablet by mouth every 6 hours as needed for Nausea/Vomiting Active pantoprazole EC (Protonix) 40 MG tablet Take 1 (one) tablet by mouth once daily Active predniSONE (Deltasone) 5 MG tablet Take 1 (one) tablet by mouth once daily Active tamsulosin (Flomax) 0.4 MG capsule Take 1 (one) capsule by mouth once daily At the same time every day after a meal. Active Tiotropium [place] Monohydrate (Spiriva Respimat) 1.25 MCG/ACT AERS Active albuterol HFA (Ventolin HFA) 108 (90 Base) MCG/ACT inhaler Inhale 2 (two) puffs by mouth every 4 hours as needed Rescue inhaler Active Active Problems Problem Noted Date Diagnosed Date Kidney stone 04/08/2023 Social History Tobacco Use Types Packs/Day Years Used Date Smoking Tobacco: Former Cigarettes 0.5 15 Smokeless Tobacco: Current Chew Alcohol Use Standard Drinks/Week Comments Yes 42 (1 standard drink = 0.6 oz pu re alcohol) AUDIT-C Answer Date Recorded Frequency of Alcohol Consumption Not on file 04/11/2023 Q2: How many drinks containi ng alcohol do you have on a typical day when you are drinking? 5 or 6 Q3: How often do you have si x or more drinks on one occasion? Daily or almost daily 04/11/2023 Sex and Gender Information Value Date Recorded Sex Assigned at Not on file Gender Identity Not on file Sexual Orientation Not on file Last Filed Vital Signs Vital Sign Reading Time Taken Comments Blood Pressure 144/100 04/11/2023 3:55 PM CDT Pulse 83 04/11/2023 3:55 PM CDT Temperature 36.6 C (97.9 F) 04/11/2023 3:55 PM CDT Respiratory Rate 20 04/11/2023 3:55 PM CDT Oxygen Saturation 98% 04/11/2023 3:55 PM CDT Inhaled Oxygen Concentration - - Weight 100 kg (220 lb 7.4 oz) 04/11/2023 11:54 A M CDT Height 193 cm (6' 4 ) 04/11/2023 11:54 AM CDT Body Mass Index 26.84 04/11/2023 11:54 AM CDT Plan of Treatment Not on file Medical Devices Implanted Type Area Line Service Technician Device Identifier Shelf Expiration Date Model / Serial / Lot Stent Uret 6fr 22-30cm Pgtl Crv Tpr Tip - Sn/A Implanted:Qty: 1 on 04/11/2023 by Orville Vega MD at [facility] Left: Ureter [employer] Scimed 01/27/2026 [id number] / N/A / [id number] Care Teams Creel Operator Relationship Specialty Start Date End Date July Batista APRN-OCULARIST [address] [place] [address] PCP - General 04/10/23
--- OUTSIDE RECORDS SUMMARY | 2024-10-22 08:26 | XMS_ITS | Patient Health Summary ---
Author Organization [facility] [employer] Address [address] [facility] [place] [address] Care Team Providers Care Ibm Mainframe Developer Name Role Phone July Batista APRN-LAYOUT INSPECTOR Primary Care Provider Note from [facility],non-owned Affiliates and Associated Physician Practices is amultiple site organization consisting of ambulatory clinics and hospital sitesin [place], [place] and [place]. This disclosure is being madepursuant to the Care Everywhere program and may not contain all information available regarding this patient. Last updated 18.[facility] [employer] Allergies No known active allergies Medications * Be aware that medications may not be up to date on this document. Alwaysverify current medications with the patient. * acetylcysteine (Mucomyst) 20 % solution Inhale 4 mL by mouth every 4 hours * ALPRAZolam (Xanax) 0.5 MG tablet Take 1 (one) tablet by mouth at bedtime * atorvastatin (Lipitor) 80 MG tablet Take 1 (one) tablet by mouth at bedtime * ticagrelor (Brilinta) 90 MG tablet Take 1 (one) tablet by mouth 2 times daily * Comrtck-Tpxxanehhtl-Ceswpjwnsv (Breztri Aerosphere) 160-9-4.8 MCG/ACT AERO * Ydccjflobek-Necwjnjqb-Vysjij (Trelegy) 100-62.5-25 MCG/ACT Inhale 1 (one) puff by mouth once daily * furosemide (Lasix) 20 MG tablet Take 1 (one) tablet by mouth once daily * guaiFENesin ER 12hr (Mucinex) 600 MG tablet Take 1 (one) tablet by mouth every 12 hours * HYDROcodone-acetaminophen ([place]) 5-325 MG tablet Take 1 (one) tablet by mouth every 6 hours as needed for Pain * Ipratropium-Albuterol (DUONEB IN) * irbesartan (Avapro) 300 MG tablet Take 1 (one) tablet by mouth once daily * ondansetron (Zofran) 4 MG tablet Take 1 (one) tablet by mouth every 6 hours as needed for Nausea/Vomiting * pantoprazole EC (Protonix) 40 MG tablet Take 1 (one) tablet by mouth once daily * predniSONE (Deltasone) 5 MG tablet Take 1 (one) tablet by mouth once daily * tamsulosin (Flomax) 0.4 MG capsule Take 1 (one) capsule by mouth once daily At the same time every day after a meal. * Tiotropium [place] Monohydrate (Spiriva Respimat) 1.25 MCG/ACT AERS * albuterol HFA (Ventolin HFA) 108 (90 Base) MCG/ACT inhaler Inhale 2 (two) puffs by mouth every 4 hours as needed Rescue inhaler Active Problems Problem Noted Date Diagnosed Date [...] Mass Index 26.84 04/11/2023 11:54 AM CDT Medical Devices Implanted Type Area Perioperative Educator Device Identifier Shelf Expiration Date Model / Serial / Lot Stent Uret 6fr 22-30cm Pgtl Crv Tpr Tip - Sn/A Implanted:Qty: 1 on 04/11/2023 by Orville Vega MD at [facility] Left: Ureter [employer] Scimed 01/27/2026 [id number] / N/A / [id number] Procedures * FL MELODY SURGERY(Performed 04/11/2023) Performed for Renal calculi, Ureteral calculi * ENDOTRACHEAL TUBE NOTE(Performed 04/11/2023) * MT CYSTO URETERO WITH LITHOTRIPSY INC STENT(Performed 04/11/2023) Performed for Renal calculi, Ureteral calculi * MT CYSTO/URETERO/PYELOSCOPY W/LITHOTRIPSY(Performed 04/11/2023) Performed for Renal calculi, Ureteral calculi * EKG 12-LEAD(Performed 04/11/2023) Performed for Coronary artery disease involving [place] coronary artery of [place] heart without angina pectoris Results * OR FL GUIDE / MELODY STAT ONLY [id number] (04/11/2023 2:53 PM CDT) Orville Vega MD FLUOROSCOPY ORDERAB LES [facility] [address] * ETT LINE PERFORMABLE (04/11/2023 2:10 PM CDT) Narrative Deanna Gallardo MD - 04/11/2023 2:10 PM CDT Arnold Casanova APRN-[facility] 04/11/2023 2:11 PM Endotracheal Tube Placement: Patient Location: OR. Intubation Event Date/Time: 04/11/2023 2:00 PM Procedure: intubation ([id number]). Procedure Section: Sedation: under general anesthesia. Indications for Airway Management: anesthesia Procedure pretreatments used? No Induction: standard IV Patient Position: sniffing Mask Ventilation: easy. Blade Type: Radha Blade Size: 3 Laryngoscopy View: grade 1 (full cords) Tube: endotracheal tube Placement: oral Tube type: cuff - inflated Tube Size (MM): 7.5 Depth of Insertion (CM): 23 Measured From: lips Cuff volume (mL): 10 Cuff Inflated With: air Number of Attempts: 1. Ventilation between attempts: No. Placement Verified By: direct visualization and CO2 monitor Tube secured with: adhesive tape. Dentition unchanged? Yes Difficult Airway? No. Procedure Start Time: 04/11/2023 2:00 PM. Staff Section Anesthesia Provider: Arnold Casanova APRN-CRNA, Performed the procedure Deanna Gallardo MD GENERAL ANESTHESIA O RDERABLES * EKG 12-LEAD (04/11/2023 11:52 AM CDT) Ventricular Rate 61 BPM [facility] Atrial Rate 61 BPM [facility] P-R Interval 144 ms [facility] QRS Duration ms 86 ms [facility] Q-T Interval ms 412 ms [facility] QTC Calculation (Bezet) 414 ms [facility] Calculated P [employer] 28 degrees [facility] Calculated R [employer] 34 degrees [facility] Calculated T [employer] 59 degrees [facility] Interpretation EKG Normal sinus rhythm Normal ECG No previous ECGs available Confirmed by MD Joanna, [facility] ([id number]) on 04/11/2023 6:33:17 PM [facility] 04/11/2023 11:5 2 AM CDT 04/11/2023 6:33 PM CDT Beau Stapleton MD ECG ORDERABLES [facility] Care Teams Ibm Mainframe Developer Relationship Specialty Start Date End Date July Batista APRN-LAYOUT INSPECTOR [address] [facility] [address] [place] [address] PCP - General 04/10/23
--- OUTSIDE RECORDS SUMMARY | 2024-10-22 08:26 | XMS_ITS | Encounter Summary ---
Author Organization [facility] Address [address] [place] [address] Care Team Providers Care Phys Assistant Name Role Phone No, Physician Primary Care Provider [phone] July Batista NP Primary Care Provider [phone] Encounter Details Date Type Department Care Team (Late st Contact Info) Description 06/10/2024 Orders Only [facility] Health Information Management [address] [place] [id number] Austin Person MD [address] [facility] [address] [place] [id number] Social History Tobacco Use Types Packs/Day Years Used Date Smoking Tobacco: Former Cigarettes 2018 Smokeless Tobacco: Current Chew AUDIT-C Answer Date Recorded Q1: How often do you have a drink containing alc ohol? 2-3 times a week 12/31/2022 Q2: How many drinks containi ng alcohol do you have on a typical day when you are drinking? 5 or 6 12/31/2022 Q3: How often do you have si x or more drinks on one occasion? Monthly 12/31/2022 Sex and Gender Information Value Date Recorded Sex Assigned at Not on file Legal Sex Male 10:14 AM CDT Gender Identity Not on file Sexual Orientation Not on file documented as of this encounter Plan of Treatment Not on file documented as of this encounter Procedures Procedure Name Priority Date/Time Associated Diagnosis Comments CARDIOLOGY DOCUMENT SCAN 06/10/2024 documented in this encounter Results * Cardiology Document Scan (06/10/2024) Anatomical Region Laterality Modality Other Austin Person MD CV CARDIAC SERVICES PROCEDU RES Final Result documented in this encounter Visit Diagnoses Not on filedocumented in this encounter Additional Health Concerns Infection Onset Date Last Indicated Resolved Time COVID19 12/12/2020 12/11/2020 documented as of this encounter Care Teams Phys Assistant Relationship Specialty Start Date End Date No, Physician PCP - General 01/15/23 07/07/24 [place] [address] [place] [address] PCP - General Nurse Practitioner 07/08/24 documented as of this encounter
--- OUTSIDE RECORDS SUMMARY | 2024-10-22 08:26 | XMS_ITS | Referral Summary ---
Author Organization [facility] Address [address] [place] [address] Care Team Providers Care Tank Truck Milk Receiver Name Role Phone July Batista NP Primary Care Provider [phone] Encounters Date Type Department Care Team Description 08/17/2024 Telephone [facility] Cardiology [address] [place] [address] Lucho Gutiérrez MD Prior Auth from Last 3 Months Allergies No known active allergies Medications albuterol HFA (PROVENTIL HFA,VENTOLIN HFA,PROAIR HFA) 90 mcg/actuation inhaler INHALE 2 PUFFS BY MOUTH EVERY 6 HOURS NEEDED FOR WHEEZING 1 Active aspirin 81 mg enteric coated tablet 1 tablet (81 mg total) 1 Active nitroglycerin (NITROSTAT) 0.[address] 1 tablet (0.4 mg total) under the tongue every 5 (five) minutes as needed (q 5mins x3 prn for chest pain) 25 tablet 3 1 Active furosemide (LASIX) 20 mg tablet Take 1 tablet (20 mg total) by mouth every 3 (three) days [address] (PROTONIX) 40 mg EC tablet 2 Active predniSONE (DELTASONE) 20 mg tablet Take 2 tablets (40 mg) by mouth daily 2 Active lidocaine (LIDODERM) 5 % APPLY 2 PATCHES TOPICALLY ONCE DAILY ON MOST PAINFUL AREA FOR UP TO 12 HOURS 2 Active ALPRAZolam (XANAX) 0.5 mg tablet Take 0.5 mg by mouth daily 2 Active guaiFENesin ER (MUCINEX) 600 mg 12 hr tablet Take 1,200 mg by mouth 2 (two) times a day Active ipratropium-alb uteroL (DUO-NEB) 0.5-2.5 mg/3 mL nebulizer solution Take 3 mL by nebulization 2 (two) times a day 180 mL 3 3 07/08/20 25 Active tiotropium bromide (SPIRIVA RESPIMAT) 1.25 mcg/actuation inhaler Inhale 2 puffs daily 1 g 3 3 07/08/20 25 Active Symbicort 80-4.5 mcg/actuation inhaler Inhale 2 puffs 2 (two) times a day Rinse mouth with water after use, do not swallow 10.2 g 3 Active Additional Information Patient not taking.Reported on 07/08/2024 montelukast (SINGULAIR) 10 mg tablet Take 1 tablet (10 mg total) by mouth nightly 30 tablet 4 03/02/20 25 Active cetirizine (ZyrTEC) 10 mg tablet Take 1 tablet (10 mg total) by mouth daily 30 tablet 4 03/02/20 25 Active Additional Information Patient not taking.Reported on 07/08/2024 atorvastatin (LIPITOR) 80 mg tabletIndicatio ns:Lipid screening Take 1 tablet (80 mg total) by mouth daily 30 tablet 4 Active isosorbide mononitrate ER (IMDUR) 30 mg 24 hr tabletIndicatio ns:Coronary artery disease involving [place] coronary artery of [place] heart without angina pectoris Take 1 tablet (30 mg total) by mouth daily 30 tablet 11 4 07/08/20 25 Active metoprolol XL (TOPROL-XL) 25 mg extended release tabletIndicatio ns:Coronary artery disease involving [place] coronary artery of [place] heart without angina pectoris Take 1 tablet (25 mg total) by mouth daily 30 tablet 11 4 07/08/20 25 Active Brilinta 90 mg tablet Take 1 tablet by mouth twice daily 60 tablet 5 4 Active Active Problems Problem Noted Date Diagnosed Date Simple chronic bronchitis 02/21/2023 Pulmonary nodule 01/13/2023 Gastroesophageal reflux disease without esophagi tis 01/13/2023 Hyperlipidemia LDL goal <70 04/12/2022 Clinical diagnosis of COVID-19 09/15/2021 Chest pain 01/04/2021 Pure hypercholesterolemia 01/04/2021 Essential hypertension 01/04/2021 Coronary artery disease 01/04/2021 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 01/04/2021 Thrombocytopenia 01/04/2021 Social History Tobacco Use Types Packs/Day Years Used Date Smoking Tobacco: Former Cigarettes 2 30 2018 Smokeless Tobacco: Current Chew Tobacco Cessation:Ready to Q uit: Not Asked; Counseling Given: Not Answered AUDIT-C Answer Date Recorded Q1: How often [...] Sign Reading Time Taken Comments Blood Pressure 172/104 07/08/2024 2:45 PM LATEX SPOOLER Pulse 90 07/08/2024 2:45 PM LATEX SPOOLER Temperature 36.7 C (98.1 F) 07/06/2024 2:11 PM LATEX SPOOLER Respiratory Rate 18 07/06/2024 2:11 PM LATEX SPOOLER Oxygen Saturation 95% 07/08/2024 2:45 PM LATEX SPOOLER Inhaled Oxygen Concentration - - Weight 108.9 kg (240 lb) 07/08/2024 2:45 PM LATEX SPOOLER Height 193 cm (6' 4 ) 07/08/2024 2:45 PM LATEX SPOOLER Body Mass Index 29.21 07/08/2024 2:45 PM LATEX SPOOLER Plan of Treatment Not on file Additional Health Concerns Infection Onset Date Last Indicated COVID19 12/12/2020 12/11/2020 Insurance AETNA BETTER [facility] AETNA BETTER [facility] Care Teams Tank Truck Milk Receiver Relationship Specialty [place] [address] [address] [address] PCP - General Nurse Practitioner 07/08/24
--- OUTSIDE RECORDS SUMMARY | 2024-10-22 08:26 | XMS_ITS | Clinical Summary ---
Author Organization [facility] [employer] Address [address] [place] [address] Care Team Providers Care Corporate Event Planner Name Role Phone Lester July Hermilo AYALA-SENIOR PIPING DESIGNER Primary Care Provider Source Comments [facility],non-owned Affiliates and Associated Physician Practices is amultiple site organization consisting of ambulatory clinics and hospital sitesin [place], [place], [place] and [place]. This disclosure is being madepursuant to the Care Everywhere program and may not contain all information available regarding this patient. Last updated 18.[employer] Allergies No known active allergies Medications * [...] tablet by mouth 2 times daily Active Aaaceqg-Lyosdhprbpy-Bb rmoterol (Breztri Aerosphere) 160-9-4.8 MCG/ACT AERO Active Fluticasone-Umeclidin- Vilant (Trelegy) 100-62.5-25 MCG/ACT Inhale 1 (one) puff by mouth once daily Active furosemide (Lasix) 20 MG tablet Take 1 (one) tablet by mouth once daily Active guaiFENesin ER 12hr (Mucinex) 600 MG tablet Take 1 (one) tablet by mouth every 12 hours Active HYDROcodone-acetaminop hen ([place]) 5-325 MG tablet Take 1 (one) tablet [...] every day after a meal. Active Tiotropium [place] Monohydrate (Spiriva Respimat) 1.25 MCG/ACT AERS Active [...] 04/11/2023 11:54 AM CDT Plan of Treatment Health Maintenance Due Date Last Done Comments COLOGUARD (AGES 45-75) - COL ON CA SCREENING 1959 COLON MONITORING 1959 COLONOSCOPY - COLON CA SCREENING 1959 CT COLONOGRAPHY - COLON CA SCREENING 1959 Colorectal Cancer Screening 1959 FIT - COLON CA SCREENING 1959 FLEX SIG - COLON CA SCREENING 1959 HIV SCREENING 12/06/1974 HEPATITIS C SCREENING 12/02/1977 DTAP/TDAP/TD VACCINES (1 - Tdap) 12/06/1978 PNEUMOCOCCAL VACCINE 50+ (1 of 1 - PCV) 12/06/2009 ZOSTER VACCINE (1 of 2) 12/06/2009 COVID-19 VACCINE (1 - 2023-2 5 season) 2024 INFLUENZA VACCINE (#1) 2024 DEPRESSION SCREENING 09/02/2024 Respiratory Syncytial Virus (RSV) Vaccine Pt: or over 60 yrs (1 - 1-dose 75+ series) 12/06/2034 HEPATITIS B VACCINE Aged Out No longe r eligible based on patient's age to complete this topic HIB VACCINE Aged Out No longer eligi ble based on patient's age to complete this topic HPV VACCINE Aged Out No longer eligi ble based on patient's age to complete this topic MENINGOCOCCAL (Group B) VACCINE Aged Out No longer eligible based on patient's age to complete this topic MENINGOCOCCAL VACCINE Aged Out No vilma lianet eligible based on patient's age to complete this topic PNEUMOCOCCAL VACCINE Aged Out No long er eligible based on patient's age to complete this topic Medical Devices Implanted Type Area Beam Dyer Operator Device Identifier Shelf Expiration Date Model / Serial / Lot Stent Uret 6fr 22-30cm Pgtl Crv Tpr Tip - Sn/A Implanted:Qty: 1 on 04/11/2023 by Orville Vega MD at [facility] Left: Ureter [employer] Scimed 01/27/2026 [id number] / N/A / [id number] Care Teams Corporate Event Planner Relationship Specialty Start Date End Date July Batista, MEDICAL OFFICE SECRETARY-SENIOR PIPING DESIGNER [address] [place] [address] PCP - General 04/10/23
--- OUTSIDE RECORDS SUMMARY | 2024-10-22 08:26 | XMS_ITS | Clinical Summary ---
Author Organization [facility] Address [address] [place] [address] Care Team Providers Care Kitchen Clerk Name Role Phone July Batista NP Primary Care Provider [phone]- [phone] Allergies No known active allergies Medications albuterol [...] 24 hr tabletIndicatio ns:Coronary artery disease involving [place] coronary artery of [place] heart without angina pectoris Take 1 tablet (30 mg total) by mouth daily 30 tablet 4 07/08/20 25 Active metoprolol XL (TOPROL-XL) 25 mg extended release tabletIndicatio ns:Coronary artery disease involving [place] coronary artery of [place] heart without angina pectoris Take 1 tablet [...] dependence without comp lication 01/04/2021 Thrombocytopenia 01/04/2021 Encounters Date Type Department Care Team Description 08/17/2024 Telephone [facility] Cardiology [address] [place] [address] Lucho Gutiérrez MD Prior Auth from Last 3 Months Surgical History Surgery Date Site/Laterality Comments HERNIA REPAIR Medical History Medical History Date Comments Hyperlipidemia Hypertension Clinical diagnosis of COVID-19 09/15/2021 CHF (congestive heart failure) (CMS/HCC) (HCC) COPD (chronic obstructive pulmonary disease) (HC C) Chest pain Edema Family History Medical History Relation Name Comments Heart attack Father Na Cancer Mother Mother Relation Name Status Comments Father Na (Age 89) Mother Mother (Age 72) Social History Tobacco Use Types Packs/Day Years Used Date Smoking Tobacco: Former Cigarettes 2018 Smokeless Tobacco: Current Chew Tobacco Cessation:Ready [...] on file Sexual Orientation Not on file Obstetrics History Last Filed Vital Signs Vital Sign Reading Time Taken Comments Blood Pressure 172/104 07/08/2024 2:45 PM SENIOR JAVA PROGRAMMER Pulse 90 07/08/2024 2:45 PM SENIOR JAVA PROGRAMMER Temperature 36.7 C (98.1 F) 07/06/2024 2:11 PM SENIOR JAVA PROGRAMMER Respiratory Rate 18 07/06/2024 2:11 PM SENIOR JAVA PROGRAMMER Oxygen Saturation 95% 07/08/2024 2:45 PM SENIOR JAVA PROGRAMMER Inhaled Oxygen Concentration - - Weight 108.9 kg (240 lb) 07/08/2024 2:45 PM SENIOR JAVA PROGRAMMER Height 193 cm (6' 4 ) 07/08/2024 2:45 PM SENIOR JAVA PROGRAMMER Body Mass Index 29.21 07/08/2024 2:45 PM SENIOR JAVA PROGRAMMER Plan of Treatment Health Maintenance Due Date Last Done Comments Colon Cancer Screening-Colonoscopy 1959 Depression Screening 1959 Hepatitis C Screening 1959 Prostate Cancer Screening-PSA 1959 Hepatitis B Screening 12/06/1977 Regular Well Visit/Exam 18-64 12/06/1977 Lung Cancer Screening 12/06/2009 Zoster Vaccine (1 of 2) 12/06/2009 DTaP/Tdap/Td Vaccine (1 - Tdap) 03/29/2012 2 Influenza Vaccine (#1) 2024 Pneumococcal vaccine <65 (3 of 3 - PCV20 or PCV21) 08/09/2026 08/09/2021, 09/26/2019, 12/22/2018, Additional history exists Additional Health Concerns Infection Onset Date Last Indicated COVID19 12/12/2020 12/11/2020 Insurance A[facility]NA [facility] AETNA BETTER [facility] Care Teams Kitchen Clerk Relationship Specialty [place] [address] [address] [address] PCP - General Nurse Practitioner 07/08/24
== END 2024-10-22 08:18 | disposition home or self-care (01) ==
LOC: CHSIMG 08:20
PROVIDERS: PCP Internal Medicine; Visit Provider Registered Nurse
DX: M54.50 Low back pain, unspecified (principal); M43.06 Spondylolysis, lumbar region
CPT/HCPCS: 72148

== ENCOUNTER 2025-08-23 08:04 | Observation (INO) | payer MEDICARE, MEDICAID, SELFPAY ==
[2025-08-23] VITALS (20 sets, daily range): BP systolic 130–175; BP diastolic 90–118; PULSE 79–99; RESP 12–24; TEMP 36.5–36.6; O2SAT 96–99; BMI 27.9
--- NOTE | ~2025-08-23 | CT_ITS ---
CT HEAD CTA NECK, CTA HEAD Clinical History: left posterior head and neck pain Comparison: None TECHNIQUE: Unenhanced axial images skull base to vertex Coronal, sagittal reformats Helical images thoracic inlet to vertex IV contrast information not in PACS Coronal, sagittal reformats. Multiplanar MIPS. CT images acquired with automatic exposure control for dose reduction DLP: 1911 mGy-cm Findings: CT HEAD Mild global atrophy Sulci, ventricles: Unremarkable. No intracerebral hemorrhage. No evidence acute territorial infarct. No mass effect, midline shift. Empty sella. Bony calvarium intact. Visualized paranasal sinuses: Clear. Mastoid air cells: Clear. No abnormal foci of contrast enhancement. Patent dural venous sinuses. CTA NECK NASCET Criteria utilized Aortic arch: No aneurysm or dissection. Great vessel origins: No stenosis. CCAs: No dissection. No stenosis. Cervical ICAs: No dissection. No stenosis. Vertebral Arteries: Patent. Lung Apices: Emphysema. Right scarring. Thyroid: Unremarkable. Nodes: No enlarged nodes. Bones: No acute bony abnormality. CTA HEAD: Aneurysms: None. Intracranial ICAs: Patent, unremarkable. ACAs and their distal branches: Patent, unremarkable. A-Comm: Identified. Patent, unremarkable. MCAs and their distal branches: Patent, unremarkable. Basilar artery: Patent, unremarkable. plaster foreman and their distal branches: Patent, unremarkable. P-Comms: Neither side definitely present. IMPRESSION: CT HEAD: 1. No acute intracranial findings. CTA NECK: 1. No ICA stenosis or other acute arterial abnormality. 2. Emphysema. Recommend annual screening CT chest. CTA HEAD: 1. No large vessel arterial occlusive disease or other acute findings. 2. No aneurysms. Reviewed, dictated and finalized at location R. LLE TRANSLATOR
--- NOTE | ~2025-08-23 | XR_ITS ---
Examination: XR chest 2V Clinical History: cp Comparison: 06/08/2024 Technique: PA and Lateral Findings: Cardiomediastinal silhouette normal size and configuration. Right apical scarring as before. Lungs otherwise clear. No acute bony abnormality. IMPRESSION: 1. No acute cardiopulmonary findings. Reviewed, dictated and finalized at location R. 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
--- NOTE | 2025-08-23 08:05 | ECG_ITS ---
Test Date: 2025-08-23 08:17:05 Measurements Intervals [place] Rate: 87 P: 48 MA: 151 QRS: 55 QRSD: 90 T: 71 QT: 353 QTc: 426 Interpretive Statements SINUS RHYTHM NONSPECIFIC T-WAVE ABNORMALITY- HIGH LATERAL LEADS BASELINE ARTIFACT- II, III, AVR, AVL, AVF, V4-V5 BORDERLINE ECG Compared to ECG 06/08/2024 21:39:19 No significant changes Electronically Signed On 08-23-2025 09:07:57 WOOL HAT FINISHER by Ramon Mercer D.O.
--- OUTSIDE RECORDS SUMMARY | 2025-08-23 08:13 | XMS_ITS | Encounter Summary ---
Author Organization [facility] Address [address] [place] [address] Care Team Providers Care Parachute Packer Name Role Phone Ivon Castañeda MD Primary Care Provider + [phone] Ivon Castañeda MD Primary Care Provider + [phone] Ivon Castañeda MD Unavailable [phone] Robert Pierre MD Unavailable [phone] July Batista APRN Primary Care Provider + [phone] Viv Leyva MD Unavailable + [phone] Lucho Gutiérrez MD Unavailable [phone] Encounter Details Date Type Department Care Team (Late Contact Info) Description 06/22/2016 Abstract [facility] CONVERSION [address] [place] [address] , Generic Conversion, Social History Tobacco Use Types Packs/Day Years Used Date Smoking Tobacco: Every Day Comments:He smoked for a vilma g time. He was able to quit for 2 years and then began again. Sex and Gender Information Value Date Recorded Sex Assigned at Male 09/18/2024 10:20 AM SERVICE ASSISTANT Legal Sex Male 12:08 PM CDT Gender Identity Not on file Sexual Orientation Not on file documented as of this encounter Plan of Treatment Upcoming Encounters Date Type Department Care Team (Late Contact Info) Description 09/06/2025 8:20 AM SERVICE ASSISTANT Office Visit [facility] Medical Group Family & Internal Medicine - [place] [address] [place] [address] July Batista APRN [address] [facility] [address] [place] [address] documented as of this encounter Visit Diagnoses Not on filedocumented in this encounter Additional Health Concerns Infection Onset Date Last Indicated Resolved Time COVID-19 Confirmed 04/25/2020 04/25/2020 0 12:33 AM CDT COVID-19 Rule Out 04/25/2020 04/25/2020 04/26/2020 5:40 PM CDT COVID-19 Rule Out 08/06/2021 08/06/2021 08/06/2021 1:59 PM SERVICE ASSISTANT documented as of this encounter Care Teams Parachute Packer Relationship Specialty Start Date End Date Ivon Castañeda MD PCP - General INTERNAL MEDICINE 04/02/16 07/20/21 Ivon Castañeda MD PCP - General INTERNAL MEDICINE 07/21/21 12/06/22 July Batista APRN [address] [facility] [address] [place] [address] PCP - General NURSE PRACTITIONER 12/07/22 Ivon Castañeda MD INTERNAL MEDICINE 07/21/21 Robert Pierre MD [address] [address] [employer]ger Informatics Educator CARDIOVASCULAR DISEASE 02/01/16 Viv Leyva MD [address] [place] [address] INTERNAL MEDICINE 04/14/23 Lucho Gutiérrez MD [address] [facility] [address] [place] [address] CARDIOVASCULAR DISEASE 06/29/24 documented as of this encounter
--- OUTSIDE RECORDS SUMMARY | 2025-08-23 08:13 | XMS_ITS | Encounter Summary ---
Author Organization [facility] Address [address] [place] [address] Care Team Providers Care Java Solutions Architect Name Role Phone Ivon Castañeda MD Primary Care Provider + [phone] Ivon Castañeda MD Unavailable [phone] Robert Pierre MD Unavailable [phone] July Batista APRN Primary Care Provider + [phone] Viv Leyva MD Unavailable + [phone] Lucho Gutiérrez MD Unavailable [phone] Encounter Details Date Type Department Care Team (Late st Contact Info) Description 07/17/2022 Calcivis Message Enc [facility] Medical Group Family & Internal Medicine [address] [address] [place]ian, [facility] Provider Due for routine follow up appt Social History Tobacco Use Types Packs/Day Years Used Date Smoking Tobacco: Former Cigarettes 0.5 30 0 09/27/1985 - 09/27/2015 Smokeless Tobacco: Current Chew Alcohol Use Standard Drinks/Week Comments Yes 6.7 (1 standard drink = 0.6 oz p ure alcohol) 6-7 beers every other day AUDIT-C Answer Date Recorded Q1: How often do you have a drink containing alc ohol? Monthly or less 09/27/2020 Q2: How many drinks containi ng alcohol do you have on a typical day when you are drinking? 5 or 6 09/27/2020 Q3: How often do you have si x or more drinks on one occasion? Never 09/27/2020 PHQ-2 Answer Date Recorded PHQ-2 Score - If the patient scores above 3, please move on to questions 3-9 0 10/10/2021 Sex and Gender Information Value Date Recorded Sex Assigned at Male 09/18/2024 10:20 AM CUSTOMER SERVICE ATTENDANT Legal Sex Male 12:08 PM CDT Gender Identity Not on file Sexual Orientation Not on file Occupation Industry Job Start Date Job End Date Not on file Not on file Not on file Not on file documented as of this encounter Functional Status * RETIRED Are you deaf or do you have serious difficulty hearing Answer Date of Assessment Author Status No 10/29/2021 3:32 PM CUSTOMER SERVICE ATTENDANT Activ e * RETIRED Are you blind or do you have serious difficulty seeing, even when wearing glasses? Answer Date of Assessment Author Status No 10/29/2021 3:32 PM CUSTOMER SERVICE ATTENDANT Activ e * Do you have serious difficulty walking or climbing stairs? Answer Date of Assessment Author Status No 10/29/2021 3:32 PM Kalina Ventura RN Active * Do you have difficulty dressing or bathing? Answer Date of Assessment Author Status No 10/29/2021 3:32 PM CUSTOMER SERVICE ATTENDANT Kalina Stevens RN Active * Because of a physical, mental, or emotional condition, do you have difficulty doing errands alone such as visiting a doctor's office or shopping? Answer Date of Assessment Author Status No 10/29/2021 3:32 PM Kalina Ventura RN Active documented as of this encounter Mental Status * Because of a physical, mental, or emotional condition, do you have serious difficulty concentrating, remembering, or making decisions? Answer Entry Date Author Status No 10/29/2021 3:32 PM Kalina Ventura RN Active documented in this encounter Plan of Treatment Upcoming Encounters Date Type Department Care Team (Late st Contact Info) Description 09/06/2025 8:20 AM CUSTOMER SERVICE ATTENDANT Office Visit [facility] Medical Group Family & Internal Medicine [facility] [address] [place] [address] July Batista APRN [address] [facility] [address] [place] [address] documented as of this encounter Goals Goal Patient Goal Type Associated Problems Recent Progress Patient-Stated? Author Health - patient able to perform ADLs independently General No Lucia Velazquez, RN Patient will return to prior living situation and remain independent in ADLs upon discharge from hospital General No Lilo Guillermo RN documented as of this encounter Visit Diagnoses Not on filedocumented in this encounter Additional Health Concerns Assessment Noted Time PHQ-9 Depression Total Score: 1 10/10/19 22 8:28 AM CUSTOMER SERVICE ATTENDANT documented as of this encounter Care Teams Java Solutions Architect Relationship Specialty Start Date End Date Ivon Castañeda MD PCP - General INTERNAL MEDICINE 07/21/21 12/06/22 July Batista APRN [address] [address] PCP - General NURSE PRACTITIONER 12/07/22 Ivon Castañeda MD INTERNAL MEDICINE 07/21/21 Robert Pierre MD [address] [id number] [place] Feather Edger CARDIOVASCULAR DISEASE 02/01/16 Viv Leyva MD [facility] [id number] INTERNAL MEDICINE 04/14/23 Lucho Gutiérrez MD [facility]5 [facility] [address] [place] [address] CARDIOVASCULAR DISEASE 06/29/24 documented as of this encounter
--- OUTSIDE RECORDS SUMMARY | 2025-08-23 08:13 | XMS_ITS | Clinical Summary ---
Author Organization [facility] Address [address] [place] [address] Care Team Providers Care Labor And Delivery Nurse Name Role Phone Lester July Hermilo AYALA-OXYGEN PLANT OPERATOR Primary Care Provider Source Comments [facility],non-owned Affiliates and Associated Physician Practices is amultiple site organization consisting of ambulatory clinics and hospital sitesin [place], [place], [place] and [place]. This disclosure is being madepursuant to the Care Everywhere program and may not contain all information available regarding this patient. Last updated 18.Panève [facility] Allergies No known active allergies Medications * Be aware that medications may not be up to date on this document. Alwaysverify current medications with the patient. acetylcysteine (Mucomyst) 20 % solution Inhale 4 mL by mouth every 4 hours Active ALPRAZolam (Xanax) 0.5 MG tablet Take 1 (one) tablet by mouth at bedtime Active atorvastatin (Lipitor) 80 MG tablet Take 1 (one) tablet by mouth at bedtime Active ticagrelor (Brilinta) 90 MG tablet Take 1 (one) tablet by mouth 2 times daily Active Budeson-Glycopyr rol-Formoterol (Breztri Aerosphere) 160-9-4.8 MCG/ACT AERO Active Fluticasone-Umec lidin-Vilant (Trelegy) 100-62.5-25 MCG/ACT Inhale 1 (one) puff by mouth once daily Active furosemide (Lasix) 20 MG tablet Take 1 (one) tablet by mouth once daily Active guaiFENesin ER 12hr (Mucinex) 600 MG tablet Take 1 (one) tablet by mouth every 12 hours Active HYDROcodone-acet aminophen (Alexander) 5-325 MG tablet Take 1 (one) tablet by mouth every 6 hours as needed for Pain Active Ipratropium-Albu terol (DUONEB IN) Active irbesartan (Avapro) 300 MG tablet Take 1 (one) tablet by mouth once daily Active ondansetron (Zofran) 4 MG tablet Take 1 (one) tablet by mouth every 6 hours as needed for Nausea/Vomit ing Active pantoprazole EC (Protonix) 40 MG tablet Take 1 (one) tablet by mouth once daily Active predniSONE (Deltasone) 5 MG tablet Take 1 (one) tablet by mouth once daily Active tamsulosin (Flomax) 0.4 MG capsule Take 1 (one) capsule by mouth once daily At the same time every day after a meal. Active Tiotropium [place] Monohydrate (Spiriva Respimat) 1.25 MCG/ACT AERS Active [...] at Not on file Legal Sex Male 10:45 AM CDT Gender Identity Not on file [...] A M CDT Height 193 cm (6' 4) 04/11/2023 11:54 AM CDT Body Mass Index [...] 12/06/2009 ZOSTER VACCINE (1 of 2) 12/06/2009 DEPRESSION SCREENING 09/02/2024 AAA SCREENING 12/06/2024 COVID-19 VACCINE (1 - 2024-2 6 season) 2025 INFLUENZA VACCINE (#1) 2025 Respiratory Syncytial Virus (RSV) Vaccine Pt: or [...] to complete this topic MENINGOCOCCAL (Group B) VACC INE SHARED DECISION-MAKING Aged Out No longer eligibl e based on patient's age to complete this topic MENINGOCOCCAL GROUPS A/C/Y/W VACCINE Aged Out No longer eligible b ased on patient's age to complete this topic Medical Devices Implanted Type Area Button Attaching Machine Operator Device Identifier Shelf Expiration Date Model / Serial / Lot Stent Uret 6fr 22-30cm Pgtl Crv Tpr Tip - Sn/A Implanted:Qty: 1 on 04/11/2023 by Orville Vega MD at [facility] Left: [employer] 01/27/2026 [id number] / N/A / [id number] Insurance MEDICAID [employer] [place] Care Teams Labor And Delivery Nurse Relationship Specialty Start Date End Date July Batista, BIOMETRICS TECHNICIAN-OXYGEN PLANT OPERATOR [address] [address] [facility] [address] [place] [address] PCP - General 04/10/23
--- OUTSIDE RECORDS SUMMARY | 2025-08-23 08:13 | XMS_ITS | Encounter Summary ---
Author Organization [facility] Address [address] [place] [address] Care Team Providers Care Secondary History Teacher Name Role Phone Ivon Castañeda MD Primary Care Provider + [phone] Ivon Castañeda MD Unavailable [phone] Robert Pierre MD Unavailable [phone] July Batista APRN Primary Care Provider + [phone] Viv Leyva MD Unavailable + [phone] Lucho Gutiérrez MD Unavailable [phone] Encounter Details Date Type Department Care Team (Late st Contact Info) Description 07/11/2022 Zurn Message Enc [facility] Medical Group Family & Internal Medicine [address] [address] [place], [facility] Provider Due for routine follow up appt [...] Sex Assigned at Male 09/18/2024 10:20 AM DIETARY DIRECTOR Legal Sex Male 12:08 PM CDT Gender [...] Assessment Author Status No 10/29/2021 3:32 PM DIETARY DIRECTOR Activ e * RETIRED Are you blind or do you have serious difficulty seeing, even when wearing glasses? Answer Date of Assessment Author Status No 10/29/2021 3:32 PM DIETARY DIRECTOR Activ e * Do you have serious difficulty walking or climbing stairs? Answer Date of Assessment Author Status No 10/29/2021 3:32 PM Kalina Ventura RN Active * Do you have difficulty dressing or bathing? Answer Date of Assessment Author Status No 10/29/2021 3:32 PM DIETARY DIRECTOR Kalina Stevens RN Active * Because of [...] st Contact Info) Description 09/06/2025 8:20 AM DIETARY DIRECTOR Office Visit [facility] Medical Group Family & Internal Medicine [facility] [address] [place] [address] July Batista APRN [address] [facility] [address] [place] [address] documented as of this encounter Goals [...] Total Score: 1 10/10/19 22 8:28 AM DIETARY DIRECTOR documented as of this encounter Care Teams Secondary History Teacher Relationship Specialty Start Date End Date Ivon Castañeda MD PCP - General INTERNAL MEDICINE 07/21/21 12/06/22 July Batista APRN [address] [address] PCP - General NURSE PRACTITIONER 12/07/22 Ivon Castañeda MD INTERNAL MEDICINE 07/21/21 Robert Pierre MD [address] [phone] [place] Hair Sample Matcher CARDIOVASCULAR DISEASE 02/01/16 Viv Leyva MD [facility] [phone] INTERNAL MEDICINE 04/14/23 Lucho Gutiérrez MD [facility]5 [facility] [address] [place] [address] CARDIOVASCULAR DISEASE 06/29/24 documented as of this encounter
--- OUTSIDE RECORDS SUMMARY | 2025-08-23 08:13 | XMS_ITS | Encounter Summary ---
Author Organization [facility] Address [facility] [place] [address] Care Team Providers Care Heating Unit Installer Name Role Phone Ivon Castañeda MD Unavailable [phone] Robert Pierre MD Unavailable [phone] July Batista APRN Primary Care Provider [phone] Viv Lyeva MD Unavailable [phone] Lucho Gutiérrez MD Unavailable [phone] Encounter Details Date Type Department Care Team (Late st Contact Info) Description 09/25/2024 Cognotion Message Enc [facility] Medical Group Family & Internal Medicine [address] [address] [place], [facility] Provider Lab results Social History Tobacco Use Types Packs/Day Years Used Date Smoking Tobacco: Former Cigarettes 0.5 30 0 09/27/1985 - 09/27/2015 Passive Smoke Exposure: Past Smokeless Tobacco: Current Chew Alcohol Use Standard [...] occasion? Never 09/27/2020 PHQ-2 Answer Date Recorded Patient Health Questionnaire-2 Score 0 09/18/2024 Sex and Gender Information Value Date Recorded Sex Assigned at Male 09/18/2024 10:20 AM FAMILY WELFARE SOCIAL WORK PROFESSOR Legal Sex Male 12:08 PM CDT Gender [...] Assessment Author Status No 10/29/2021 3:32 PM FAMILY WELFARE SOCIAL WORK PROFESSOR Activ e * RETIRED Are you blind or do you have serious difficulty seeing, even when wearing glasses? Answer Date of Assessment Author Status No 10/29/2021 3:32 PM FAMILY WELFARE SOCIAL WORK PROFESSOR Activ e * Do you have serious difficulty walking or climbing stairs? Answer Date of Assessment Author Status No 10/29/2021 3:32 PM Kalina Ventura RN Active * Do you have difficulty dressing or bathing? Answer Date of Assessment Author Status No 10/29/2021 3:32 PM Kalina Ventura RN Active * Because of a physical, [...] st Contact Info) Description 09/06/2025 8:20 AM FAMILY WELFARE SOCIAL WORK PROFESSOR Office Visit [facility] Medical Group Family & Internal Medicine [facility] [address] [place] [address] July Batista, SOCIAL WORK MSW [address] [address] documented as of this encounter Goals Goal Patient Goal Type Associated Problems Recent Progress Patient-Stated? Author Health - patient able to perform ADLs independently General No Lucia Velazquez, RN Patient will return to prior living situation and remain independent in ADLs upon discharge from hospital General Lilo Mosher RN documented as of this encounter Visit Diagnoses Not on filedocumented in this encounter Additional Health Concerns Assessment Noted Time PHQ-9 Depression Total Score: 0 09/18/19 25 9:57 AM FAMILY WELFARE SOCIAL WORK PROFESSOR documented as of this encounter Care Teams Heating Unit Installer Relationship Specialty Start Date End Date July Batista APRN [address] [facility] [address] [place], [place] [phone] PCP - General NURSE PRACTITIONER 12/07/22 Ivon Castañeda MD INTERNAL MEDICINE 07/21/[address] [facility] [address] [place], [place] [phone] [place] Multifold Operator CARDIOVASCULAR DISEASE 02/01/16 Viv Leyva MD [facility]4 [facility] [address] [place], [place] [phone] INTERNAL MEDICINE 04/14/23 Lucho Gutiérrez MD [address] [facility] [address] [place] [address] CARDIOVASCULAR DISEASE 06/29/24 documented as of this encounter
--- OUTSIDE RECORDS SUMMARY | 2025-08-23 08:13 | XMS_ITS | Clinical Summary ---
Author Organization [facility] Address [address] [place] [address] Care Team Providers Care Hiv Cts Specialist Name Role Phone July Batista NP Primary Care Provider [phone] Allergies No known active allergies Medications albuterol [...] chest pain) 25 tablet [address] (PROTONIX) 40 mg EC tablet 2 Active lidocaine (LIDODERM) 5 % daily as needed 2 Active ALPRAZolam (XANAX) 0.5 mg tablet Take 1 tablet (0.5 mg total) by mouth daily as needed 2 Active ipratropium-albu teroL (DUO-NEB) 0.5-2.5 mg/3 mL nebulizer solution Take 3 mL by nebulization 2 (two) times a day 180 mL 3 3 Active tiotropium bromide (SPIRIVA RESPIMAT) 1.25 mcg/actuation inhaler Inhale 2 puffs daily 1 g 3 3 Active montelukast (SINGULAIR) 10 mg tablet Take 1 tablet (10 mg total) by mouth nightly 30 tablet 11 4 Active isosorbide mononitrate ER (IMDUR) 30 mg 24 hr tabletIndication s:Coronary artery disease involving [place] coronary artery of [place] heart without angina pectoris Take 1 tablet (30 mg total) by mouth daily 30 tablet 11 4 Active metoprolol XL (TOPROL-XL) 25 mg extended release tabletIndication s:Coronary artery disease involving [place] coronary artery of [place] heart without angina pectoris Take 1 tablet (25 mg total) by mouth daily 30 tablet 11 4 Active atorvastatin (LIPITOR) 80 mg tabletIndication s:Lipid screening Take 1 tablet by mouth once daily 30 tablet 4 5 Active Brilinta 90 mg tablet Take 1 tablet by mouth twice daily 60 tablet 4 5 Active losartan (COZAAR) 25 mg tabletIndication s:Coronary artery disease of [place] artery of [place] heart with stable angina pectoris,Essenti al hypertension Take 1 tablet (25 mg total) by mouth daily 90 tablet 3 5 026 Active predniSONE 5 mg tablet,delayed release (DR/EC) Take 5 mg by mouth daily as needed Active allopurinoL (ZYLOPRIM) 300 mg tablet Take 1 tablet (300 mg total) by mouth daily Active amLODIPine (NORVASC) 5 mg tablet Take 1 tablet (5 mg total) by mouth daily Active Active Problems Problem Noted Date Diagnosed Date Simple chronic bronchitis 02/21/2023 Pulmonary nodule 01/13/2023 Gastroesophageal reflux disease without esophagi tis 01/13/2023 Hyperlipidemia LDL goal <70 04/12/2022 Clinical diagnosis of COVID-19 09/15/2021 Chest pain 01/04/2021 Pure hypercholesterolemia 01/04/2021 Essential hypertension 01/04/2021 Coronary artery disease 01/04/2021 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 01/04/2021 Thrombocytopenia 01/04/2021 Encounters Date Type Department Care Team Description 05/25/2025 8:15 AM CDT Office Visit [facility] Cardiology at [address] [place] [address] Lucho uGtiérrez MD Coronary artery disease of [place] artery of [place] heart with stable angina pectoris (Primary Dx); Essential hypertension; Hyperlipidemia LDL goal <70; Chewing tobacco nicotine dependence without complication from Last 3 Months Surgical History Surgery Date Site/Laterality Comments HERNIA REPAIR CARDIAC CATHETERIZATION 04/23/2025 N/A Procedure: LEFT HEART CATHETERIZATION WITH CORONARY ANGIOGRAPHY AND WITH OR WITHOUT LEFT VENTRICULOGRAM [id number]; Surgeon: Ed Mosley MD; Location: CARDIAC ROUTE SALES SPECIALIST; Service: Cardiovascular; Laterality: N/A; Medical devices from this surgery are in the Medical Devices section. CARDIAC CATHETERIZATION 04/23/2025 N/A Procedure: IVUS/OCT CORS OR GRAFTS, FIRST VESSEL (+) [id number]; Surgeon: Ed Mosley MD; Location: CARDIAC ROUTE SALES SPECIALIST; Service: Cardiovascular; Laterality: N/A; Medical devices from this surgery are in the Medical Devices section. CARDIAC CATHETERIZATION 04/23/2025 N/A Procedure: IVUS/OCT CORS OR GRAFTS, EACH ADDTN'L VESSEL (+) [id number]; Surgeon: Ed Mosley MD; Location: CARDIAC ROUTE SALES SPECIALIST; Service: Cardiovascular; Laterality: N/A; Medical devices from this surgery are in the Medical Devices section. CARDIAC CATHETERIZATION 04/23/2025 N/A Procedure: ULTRASOUND GUIDANCE FOR VASCULAR ACCESS S&I [id number]; Surgeon: Ed Mosley MD; Location: CARDIAC ROUTE SALES SPECIALIST; Service: Cardiovascular; Laterality: N/A; Medical devices from this surgery are in the Medical Devices section. Medical History Medical History Date Comments Hyperlipidemia Hypertension Clinical diagnosis of COVID-19 09/15/2021 CHF (congestive heart failure) (HCC) COPD (chronic obstructive pulmonary disease) Chest pain Edema Family History Medical History Relation Name Comments Heart attack Father Na Cancer Mother Mother Relation Name Status Comments Father Na (Age 89) Mother Mother (Age 72) Social History Tobacco Use Types Packs/Day Years Used Date Smoking Tobacco: Former Cigarettes 2 - 2018 Smokeless Tobacco: Current Chew Tobacco Cessation:Ready to Q uit: Not Asked; Counseling Given: Not Answered Alcohol Use Standard Drinks/Week Comments Yes 20 (1 standard drink = 0.6 oz pu re alcohol) AUDIT-C Answer Date Recorded Q1: How often do you have a drink containing alcohol? 4 or more times a week 04/16/2025 Q2: How many drinks containi ng alcohol do you have on a typical day when you are drinking? 5 or 6 Q3: How often do you have si x or more drinks on one occasion? Monthly 04/16/2025 Personal Safety Answer Date Recorded Have you ever been in or are you currently in a harmful physical or emotional relationship or is someone making you feel afraid or unsafe? Denies 04/23/2025 Sex and Gender Information Value Date Recorded Sex Assigned at Not on file Legal Sex Male 10:14 AM CDT Gender Identity Not on file Sexual Orientation Not on file Last Filed Vital Signs Vital Sign Reading Time Taken Comments Blood Pressure 132/60 05/25/2025 8:19 AM CDT Pulse 74 05/25/2025 8:19 AM CDT Temperature 36.7 C (98 F) 04/23/2025 5:00 PM CDT Respiratory Rate 18 04/23/2025 5:15 PM CDT Oxygen Saturation 98% 05/25/2025 8:19 AM CDT Inhaled Oxygen Concentration - - Weight 109.8 kg (242 lb) 05/25/2025 8:19 AM CDT Height 193 cm (6' 4) 05/25/2025 8:19 AM CDT Body Mass Index 29.46 05/25/2025 8:19 AM CDT Plan of Treatment Health Maintenance Due Date Last Done Comments Colon Cancer Screening-Colonoscopy 1959 Depression Screening 1959 Hepatitis C Screening 1959 Prostate Cancer Screening-PSA 1959 Hepatitis B Screening 12/06/1977 Lung Cancer Screening 12/06/2009 Zoster Vaccine (1 of 2) 12/06/2009 DTaP/Tdap/Td Vaccine (1 - Tdap) 03/29/2012 2 Abdominal Aortic Aneurysm (A AA) Screen 12/06/2024 04/01/2023, 09/11/2022 Well Visit 65+ 12/06/2024 Influenza Vaccine (#1) 2025 Fall Risk Assessment 04/23/2026 04/23/2025 Pneumococcal vaccine 65+ (3 of 3 - PCV20 or PCV21) 08/09/2026 08/09/2021, 09/26/2019, 12/22/2018, Additional history exists Medical Devices Implanted Type Area Organizational Effectiveness Director Device Identifier Shelf Expiration Date Model / Serial / Lot [employer] System Closure Repair Femoral Artery Suture Mediated Perclose Prostyle 20995-19 - [id number] Implanted:Qty: 1 on 04/23/2025 by Ed Mosley MD at [facility] [employer] 03/01/2027 [id number] / [id number] Insurance [facility] Address: [address] [address] [place] [address] Advance Directives For more information, please contact: [phone] * Full Code (Latest Code Status on File) Date Activated Date Inactivated Comments 04/23/2025 1:59 PM 04/23/2025 9:28 PM Care Teams Hiv Cts Specialist Relationship Specialty Start Date End Date July Batista NP PCP - General Nurse Practitioner 07/08/24
--- OUTSIDE RECORDS SUMMARY | 2025-08-23 08:13 | XMS_ITS | Encounter Summary ---
Author Organization [facility] Address [facility] [place] [address] Care Team Providers Care Music Engraver Name Role Phone Ivon Castañeda MD Unavailable [phone] Robert Pierre MD Unavailable July Batista APRN Primary Care Provider [phone] Viv Leyva MD Unavailable [phone] Lucho Gutiérrez MD Unavailable [phone] Encounter Details Date Type Department Care Team (Late st Contact Info) Description 02/27/2023 MyChart Message Enc [facility] - [facility] [address] [place] [id number] [facility] Provider Air Quality Message Social History Tobacco Use Types Packs/Day Years [...] Date Recorded Patient Health Questionnaire-2 Score 0 09/26/2022 Sex and Gender Information Value Date Recorded Sex Assigned at Male 09/18/2024 10:20 AM PLASTIC EXTRUDING MACHINE OPERATOR Legal Sex Male 12:08 PM CDT Gender [...] Assessment Author Status No 10/29/2021 3:32 PM PLASTIC EXTRUDING MACHINE OPERATOR Activ e * RETIRED Are you blind or do you have serious difficulty seeing, even when wearing glasses? Answer Date of Assessment Author Status No 10/29/2021 3:32 PM PLASTIC EXTRUDING MACHINE OPERATOR Activ e * Do you have serious difficulty walking or climbing stairs? Answer Date of Assessment Author Status No 10/29/2021 3:32 PM PLASTIC EXTRUDING MACHINE OPERATOR Kalina Stevens RN Active * Do you have difficulty dressing or bathing? Answer Date of Assessment Author Status No 10/29/2021 3:32 PM Kalina Ventura RN Active * Because of a physical, mental, or emotional condition, do you have difficulty doing errands alone such as visiting a doctor's office or shopping? Answer Date of Assessment Author Status No 10/29/2021 3:32 PM PLASTIC EXTRUDING MACHINE OPERATOR Kalina Stevens RN Active documented as of this encounter Mental Status * Because of a physical, mental, or emotional condition, do you have serious difficulty concentrating, remembering, or making decisions? Answer Entry Date Author Status No 10/29/2021 3:32 PM Kalina Ventura RN Active documented in this encounter Plan of Treatment Upcoming Encounters Date Type Department Care Team (Late st Contact Info) Description 09/06/2025 8:20 AM PLASTIC EXTRUDING MACHINE OPERATOR Office Visit [facility] Medical [facility] Family & Internal Medicine [facility] [address] [place] [address] July Batista, LUCY [address] [address] documented as of this encounter Goals Goal [...] Noted Time PHQ-9 Depression Total Score: 0 09/26/19 23 1:35 PM PLASTIC EXTRUDING MACHINE OPERATOR documented as of this encounter Care Teams Music Engraver Relationship Specialty Start Date End Date July Batista APRN [id number] [facility] [address] [place] [address] PCP - General NURSE PRACTITIONER 12/07/22 Ivon Castañeda MD INTERNAL MEDICINE 07/21/21 Robert Pierre MD [address] [id number] [place] Bowl Attendant CARDIOVASCULAR DISEASE 02/01/16 Viv Leyva MD [facility] [address] [place] [address] [id number] INTERNAL MEDICINE 04/14/23 Lucho Gutiérrez MD [address] [facility] [address] [place] [id number] CARDIOVASCULAR DISEASE 06/29/24 documented as of this encounter
--- OUTSIDE RECORDS SUMMARY | 2025-08-23 08:13 | XMS_ITS | Clinical Summary ---
Author Organization [facility] Address [facility] [place] [address] Care Team Providers Care It Professional Name Role Phone Ivon Castañeda MD Unavailable [phone] Robert Pierre MD Unavailable [phone] July Batista APRN Primary Care Provider [phone] Viv Leyva MD Unavailable [phone] Lucho Gutiérrez MD Unavailable [phone] Allergies No known active allergies Medications Nebulizers (VIOS AEROSOL DELIVERY SYSTEM) Misc see administration instructions. 0 07/07/20 18 Active Respiratory Therapy Supplies (NEBULIZER) Device 07/07/20 18 Active Respiratory Therapy Supplies (NEBULIZER/TUBING /MOUTHPIECE) KitIndications:[place] PD exacerbation ([facility]) 1 Units by Does not apply route 4 (four) times daily. 1 kit 2 10/10/19 22 Active NEBULIZER DEVICE, DME,Indications:P ulmonary emphysema, unspecified emphysema type ([facility]),COPD exacerbation ([facility]) Use for nebulizer treatments as prescribed 1 Device 11/08/19 22 Active BRILINTA 90 MG tabletIndications :ST elevation myocardial infarction involving left circumflex coronary artery ([facility]) Take 1 tablet by mouth twice daily 60 tablet 02/22/20 22 Active irbesartan (AVAPRO) 300 MG tablet Take 1 tablet (300 mg total) by mouth daily. 11/14/19 22 Active guaiFENesin ER (MUCINEX) 600 MG 12 hr tablet Take 2 tablets (1,200 mg total) by mouth 2 (two) times daily. Active Fluticasone-Umecl idin-Vilant 200-62.5-25 MCG/INH AEROSOL POWDER, BREATH ACTIVATED Inhale 1 puff into the lungs daily. Active HYDROcodone-aceta minophen (NORCO) 5-325 MG tabletIndications :Acute Pain < 7 Day Supply Take 1-2 tablets by mouth every 8 (eight) hours as needed for Pain. Indications: Acute Pain < 7 Day Supply 20 tablet 04/01/20 23 Active ondansetron (ZOFRAN-ODT) 4 MG disintegrating tablet Take 1 tablet (4 mg total) by mouth every 8 (eight) hours as needed for Nausea. 8 tablet 04/01/20 23 Active clotrimazole-beta methasone (LOTRISONE) creamIndications: Fungus infection,Dermati tis Apply topically 2 (two) times daily. 15 g 2 06/24/20 Active clotrimazole (CLOTRIMAZOLE ANTI-FUNGAL) 1 % creamIndications: Dermatitis Apply topically 2 (two) times daily. To affected area 45 g 06/25/20 Active triamcinolone (KENALOG) 0.025 % creamIndications: Dermatitis Apply topically daily. To affected area for seven days, then stop for seven days, then repeat 15 g 06/25/20 23 Active metoprolol tartrate (LOPRESSOR) 25 MG tablet Take 1 tablet (25 mg total) by mouth every 12 (twelve) hours. 06/10/20 24 Active isosorbide mononitrate ER (IMDUR) 30 MG 24 hr tablet Take 1 tablet (30 mg total) by mouth every morning. 06/10/20 24 Active cetirizine (ZYRTEC) 10 MG tablet Take 1 tablet (10 mg total) by mouth daily. Active lidocaine (LIDODERM) 5 %Indications:Director Of Vendor Management shawanda bilateral low back pain, unspecified whether sciatica present PLACE 1 PATCH ONTO THE SKIN DAILY FOR 30 DAYS. REMOVE & DISCARD PATCHI WITHIN 12 HOURS OR DIRECTED BY 30 patch 07/23/20 24 Active furosemide (LASIX) 20 MG tabletIndications :Hypertriglycerid emia Take 1 tablet by mouth once daily 90 tablet 09/10/19 25 Active colchicine 0.6 MG tabletIndications :Acute gout of left ankle, unspecified cause Take 2 tablets (1.2 milligrams ) now, then 0.6 mg (1 tablet) after 1 hour. 4 tablet 09/22/19 25 Active pantoprazole EC (PROTONIX) 40 MG tabletIndications :GERD without esophagitis,Mixed hyperlipidemia Take 1 tablet (40 mg total) by mouth daily. 90 tablet 03/25/20 25 Active montelukast (SINGULAIR) 10 MG tabletIndications :Pulmonary emphysema, unspecified emphysema type (CMS/HCC HHS/HCC),Chronic cough Take 1 tablet (10 mg total) by mouth nightly. 90 tablet 1 03/25/20 25 Active gabapentin (NEURONTIN) 100 MG capsuleIndication s:Neuropathy Take 1 capsule (100 mg total) by mouth 3 (three) times daily. 90 capsule 3 03/25/20 25 Active Umeclidinium Davis (INCRUSE ELLIPTA) 62.5 MCG/ACT AEROSOL POWDER, BREATH ACTIVATEDIndicati ons:COPD exacerbation (CMS/HCC HHS/HCC),Pulmonar y emphysema, unspecified emphysema type (CMS/HCC HHS/HCC),Chronic cough,Wheezing Inhale 62.5 mcg into the lungs daily. 30 each 3 04/22/20 25 Active fluticasone furoate-vilantero l (BREO ELLIPTA) 100-25 MCG/ACT inhalerIndication s:COPD exacerbation (CMS/HCC HHS/HCC),Pulmonar y emphysema, unspecified emphysema type (CMS/HCC HHS/HCC),Chronic cough,Wheezing Inhale 1 puff into the lungs daily. 60 each 3 04/22/20 25 Active ALPRAZolam (XANAX) 0.5 MG tabletIndications :Anxiety Take 1 tablet (0.5 mg total) by mouth daily as needed for Anxiety. Once daily. 30 tablet 05/13/20 25 Active SPIRIVA RESPIMAT 1.25 MCG/ACT inhaler (SPIRIVA RESPIMAT)Indicati ons:COPD exacerbation (CMS/HCC HHS/HCC) INHALE 2 SPRAY(S) BY MOUTH ONCE DAILY 4 g 05/25/20 25 Active predniSONE (DELTASONE) 5 mg tabletIndications :Pulmonary emphysema (CMS/HCC HHS/HCC) TAKE 1 TABLET BY MOUTH ONCE DAILY NEEDED 90 tablet 06/14/20 25 Active amLODIPine (NORVASC) 5 MG tabletIndications :Primary hypertension Take 1 tablet by mouth once daily 90 tablet 06/14/20 25 Active rosuvastatin (CRESTOR) 10 MG tabletIndications :Mixed hyperlipidemia TAKE 1 TABLET BY MOUTH NIGHTLY AT BEDTIME 90 tablet 06/21/20 25 Active losartan (COZAAR) 25 MG tablet Take 1 tablet (25 mg total) by mouth daily. 04/12/20 25 026 Active atorvastatin (LIPITOR) 80 MG tablet Take 1 tablet (80 mg total) by mouth daily. 06/10/20 25 Active allopurinol (ZYLOPRIM) 300 MG tabletIndications :Idiopathic chronic gout of foot without tophus, unspecified laterality Take 1 tablet (300 mg total) by mouth daily. 90 tablet 2 06/24/20 25 Active albuterol sulfate HFA 108 (90 Base) MCG/ACT inhalerIndication s:Simple chronic bronchitis (CMS/HCC HHS/HCC),Chronic cough Inhale 2 puffs into the lungs every 6 (six) hours as needed for Wheezing. 18 g 3 06/24/20 25 Active azithromycin (ZITHROMAX Z-CAROLIN) 250 MG tabletIndications :Upper respiratory tract infection, unspecified type Take 2 tablets by mouth on day one then 1 daily for four days. 6 tablet 06/24/20 25 Active ipratropium-albut jeff (DUONEB) 0.5-2.5 (3) MG/3ML SolutionIndicatio ns:Chronic cough USE 1 AMPULE IN NEBULIZER EVERY 6 HOURS NEEDED 360 mL 07/13/20 25 Active acetylcysteine (MUCOMYST) 20 % nebulizer solutionIndicatio ns:Chest congestion Inhale 4 mLs into the lungs every 4 (four) hours as needed (chest congestion). 240 mL 1 08/02/20 25 Active acetylcysteine (MUCOMYST) 20 % nebulizer solutionIndicatio ns:Chest congestion Inhale 4 mLs into the lungs every 4 (four) hours as needed (chest congestion). 240 mL 06/28/20 25 025 Disconti nued(Dup licate Med) acetylcysteine (MUCOMYST) 20 % nebulizer solutionIndicatio ns:Chest congestion Inhale 4 mLs into the lungs every 4 (four) hours as needed (chest congestion). 240 mL 1 07/01/20 25 025 Disconti senthiled(Reo rder) Active Problems Problem Noted Date Diagnosed Date Acute dyspnea 06/24/2025 Anxiety 06/24/2025 Bilateral lower extremity edema 06/24/2025 Dyslipidemia 06/24/2025 Edema 06/24/2025 Elevated troponin 06/24/2025 Knee pain, bilateral 06/24/2025 Leukocytosis 06/24/2025 Osteoarthrosis 06/24/2025 PND (paroxysmal nocturnal dyspnea) 06/24/2025 Jose hematuria 05/14/2023 Urethritis 05/14/2023 Kidney stone 04/08/2023 Simple chronic bronchitis 02/21/2023 Supplemental oxygen dependent 2022 Chronic midline low back pain without sciatica 1 09/29/2021 Overweight (BMI 25.0-29.9) 02/14/2022 Myalgia 12/01/2021 STEMI (ST elevation myocardial infarction) 10/29 Assessment & Plan (10/29/2021 4:04 PM FINAL RAIL CUTTER): Assessment: He presented with a STEMI involving the left circumflex artery Plan: : Diagnostic testing:check echocardiogram Antiplatelet therapy: continue Brilinta Aspirin Dose: 81mg Antianginal medications: start beta rony Lipid lowering medications: start atorvastatin Lifestyle modifications: follow a low fat, low cholesterol diet Recommend cardiac rehabilitation Clinical diagnosis of COVID-19 09/15/2021 Upper respiratory tract infection, unspecified t ype 06/29/2021 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 01/04/2021 Mixed hyperlipidemia 01/04/2021 Assessment & Plan (10/29/2021 4:05 PM FINAL RAIL CUTTER): Repeat lipid panel and continue atorvastatin 80 mg daily. Primary hypertension 01/04/2021 Thrombocytopenia 01/04/2021 Hypertriglyceridemia 09/22/2020 Pulmonary nodule 03/24/2018 COPD with emphysema 02/24/2018 COPD exacerbation 12/23/2017 Alcohol addiction 11/29/2017 Overview (07/14/2018): Onset: 11/29/2017; Impression - 29Nov2017 Ivon Castañeda: drinks 12 beers per day, Afib 180; h/o CAD on ASA & Plavix. A-fib 11/23/2017 Chest pain 07/02/2016 Erectile dysfunction 04/12/2016 Atherosclerosis of coronary artery 03/28/2016 Direct inguinal hernia 03/28/2016 Gastroesophageal reflux disease without esophagi tis 03/28/2016 Malignant neoplasm of lung 03/28/2016 Resolved Problems Problem Noted Date Diagnosed Date Resolved Date Weakness 12/01/2021 07/30/2022 Screening PSA (prostate specific antigen) 09/22/2020 09/26/2020 Pneumonia 07/07/2018 01/07/2021 Encounters Date Type Department Care Team Description 08/02/2025 Telephone [facility] Internal [address] [address] July Batista APRN Medication 07/23/[address] [address] July Batista APRN Prior Authorization 07/09/2025 Telephone [facility] Internal [address] [address] July Batista APRN Medication Information 07/08/2025 MyChart Message Enc [address] [address] Florian, [facility] Provider Blood pressure readings 06/24/2025 9:00 AM CDT Office Visit [facility] Internal [address] [address] July Batista APRN Breathing Problem (Started Saturday. Lung pain ) 06/24/2025 Travel from Last 3 Months Immunizations Immunization Administration Dates Next Due COVID-19 Vaccine (Generic) 08/03/2021(Deferred: Patient Refused) Fluzone Adult - >Age 3 (Pref illed Syringe) 08/03/2021(Deferred: Patient Refused) Pneumococcal (Pneumovax 23) 12/22/2018 Pneumococcal (Prevnar 13) 08/09/2021,09/26/2019, 07/28/2018 Pneumococcal (Prevnar 20) 07/30/2022 Pneumovax 23 25 Mcg/0.5Ml Ij Inj 12/22/2018 Td (Tenivac) preservative free 03/28/2012 Family History Medical History Relation Comments IN Father Cancer Mother breast and lung Relation Status Comments Father Mother Social History Tobacco Use Types Packs/Day Years Used Date Smoking Tobacco: Former Cigarettes 0.5 30 0 09/27/1985 - 09/27/2015 Passive Smoke Exposure: Past Smokeless Tobacco: Current Chew Tobacco Cessation:Ready to Q uit: No; Counseling Given: Yes Alcohol Use Standard Drinks/Week Comments Yes 6.7 [...] Sex Assigned at Male 09/18/2024 10:20 AM FINAL RAIL CUTTER Legal Sex Male 12:08 PM CDT Gender Identity Not on file Sexual Orientation Not on file Occupation Industry Job Start Date Job End Date Not on file Not on file Not on file Not on file Last Filed Vital Signs Vital Sign Reading Time Taken Comments Blood Pressure 160/88 06/24/2025 10:27 AM CDT Pulse 81 06/24/2025 9:09 AM CDT Temperature 36.8 C (98.3 F) 06/24/2025 9:09 AM CDT Respiratory Rate 24 06/24/2025 9:09 AM CDT Oxygen Saturation 96% 06/24/2025 9:09 AM CDT Inhaled Oxygen Concentration - - Weight 109.3 kg (241 lb) 06/24/2025 9:09 AM CDT Height 195.6 cm (6' 5) 06/24/2025 9:09 AM CDT Body Mass Index 28.58 06/24/2025 9:09 AM CDT Plan of Treatment Upcoming Encounters Date Type Department Care Team (Late st Contact Info) Description 09/06/2025 8:20 AM FINAL RAIL CUTTER Office Visit [facility] Family & Internal Medicine [facility] [address] [place] [address] July Batista, PARK GUIDE [address] [facility] [address] [place] [address] Health Maintenance Due Date Last Done Comments Colorectal Cancer Screening Colonoscopy (10 Years) 1960 DTaP, Tdap and Td Vaccines (1 - Tdap) 03/29/2012 03/28/2012 COVID-19 Vaccine (1 - 2024- season) 2025 Influenza Adult (#1) 2025 RSV Immunization or 60+ Years (1 - Risk 60-74 years 1-dose series) 03/25/2026 Postponed fro m 2019 (Going to Outside Clinic) Zoster Vaccines (1 of 2) 03/25/2026 Pos tponed from 12/06/2009 (Going to Outside Clinic) Hepatitis C Completed 09/06/2020 Pneumococcal Vaccine: 50+ Years Completed 07/30/2022, 08/09/2021, 09/26/2019, Additional history exists AAA SCREENING Completed 04/01/2023, 09/02, 07/22/2021 PHQ-2 (Physician [place]) Completed 09/18/2024 Hepatitis A Vaccines Aged Out No long er eligible based on patient's age to complete this topic Meningococcal B Vaccine Aged Out No l onger eligible based on patient's age to complete this topic Meningococcal Vaccine Aged Out No vilma lianet eligible based on patient's age to complete this topic RSV Immunizations Under 20 Months Aged Out No longer eligible based on patient's age to complete this topic Goals Goal Patient Goal Type Associated Problems Recent Progress Patient-Stated? Author Health - patient able to perform ADLs independently General No Lucia Velazquez, RN Patient will return to prior living situation and remain independent in ADLs upon discharge from hospital General No Lilo Guillermo stable cleaner Procedure Name Priority Date/Time Associated Diagnosis Comments CT ABD+PEL WO CON STAT 04/01/2023 7:1 8 AM CDT HEPATITIS C ANTIBODY W/RFX TO HCV RNA Routine 09/06/2020 8:35 AM FINAL RAIL CUTTER Need for hepatitis C screening test from Last 3 Months or Most Recently Relevant to Health Maintenance Results * CT ABD+PEL WO CON (04/01/2023 7:18 AM CDT) Anatomical Region Laterality Modality Abdomen Computed Tomogra phy 04/01/2023 7:29 AM CDT Impressions 04/01/2023 7:36 AM CDT IMPRESSION: 1. 4 MM IN DIAMETER STONE IN THE DISTAL LEFT URETER AT THE LEFT UVJ CAUSING HIGH- GRADE OBSTRUCTION. 2. 4 MM NONOBSTRUCTING STONE LOWER POLE LEFT KIDNEY. 3. NO ACUTE INFLAMMATORY CHANGE, ABSCESS OR ASCITES. 4. NO EVIDENCE OF MECHANICAL BOWEL OBSTRUCTION OR PERFORATION. 5. DIFFUSE ATHEROSCLEROTIC VASCULAR CALCIFICATION. 6. SMALL FOCUS OF CHRONIC AVN LEFT FEMORAL HEAD. Signed: Nacho Garcai MD Referred By: Interpreted By: Nacho Garcia MD, 04/01/2023 7:29 AM Narrative 04/01/2023 7:36 AM CDT PATIENT NAME: JAYNE MASTERS EXAM: CT abdomen/pelvis without contrast DATE OF EXAM: 04/01/2023 COMPARISON EXAM: 09/11/2022 INDICATION: Left flank pain TECHNIQUE: Axial images obtained from xiphoid process to pubic symphysis without contrast using low-dose CT technique. Sagittal and coronal reconstruction. FINDINGS: Visualized portions of the lung bases demonstrate minimal emphysematous change. No airspace consolidation. No pleural effusion. No significant hernia. Liver is normal in size. No significant focal intrahepatic lesions are demonstrated. No evidence of cholelithiasis nor gallbladder wall thickening. The spleen, pancreas, and the adrenal glands are unremarkable. There is significant abnormal perirenal stranding and fluid accumulation on the left. There is abnormal left-sided hydronephrosis. An approximately 4 mm in diameter stone is in the distal left ureter at the left UVJ causing high-grade obstruction. There is no evidence of right ureteral stone nor hydronephrosis. An approximately 4 mm in diameter nonobstructing Stone is seen in the lower pole left kidney. There is a 6 cm in diameter benign-appearing left renal cyst. This would not require any additional imaging evaluation. No evidence of significant solid renal mass lesion. There is no acute inflammatory change, abscess or ascites. No evidence of mechanical bowel obstruction or perforation. No significant lymphadenopathy. Diffuse atherosclerotic calcification of the abdominal aorta with no AAA. The IVC is unremarkable. CT PELVIS: No evidence of pelvic mass nor adenopathy. No acute inflammatory change, abscess or ascites. Atherosclerotic vascular calcifications are noted. Incidental note is made of a small focus of chronic AVN involving the left femoral head. Procedure Note Nacho Garcia MD - 04/01/2023 PATIENT NAME: JAYNE MASTERS EXAM: CT abdomen/pelvis without contrast DATE OF EXAM: 04/01/2023 COMPARISON EXAM: 09/11/2022 INDICATION: Left flank pain TECHNIQUE: Axial images obtained from xiphoid process to pubic symphysiswithout contrast using low-dose CT technique. Sagittal and coronalreconstruction. FINDINGS: Visualized portions of the lung bases demonstrate minimalemphysematous change. No airspace consolidation. No pleural effusion.No significant hernia. Liver is normal in size. No significant focal intrahepatic lesions aredemonstrated. No evidence of cholelithiasis nor gallbladder wallthickening. The spleen, pancreas, and the adrenal glands are unremarkable. There is significant abnormal perirenal stranding and fluid accumulationon the left. There is abnormal left-sided hydronephrosis. Anapproximately 4 mm in diameter stone is in the distal left ureter at theleft UVJ causing high-grade obstruction. There is no evidence of rightureteral stone nor hydronephrosis. An approximately 4 mm in diameternonobstructing Stone is seen in the lower pole left kidney. There is a 6cm in diameter benign-appearing left renal cyst. This would not requireany additional imaging evaluation. No evidence of significant solid renalmass lesion. There is no acute inflammatory change, abscess or ascites. No evidence ofmechanical bowel obstruction or perforation. No significantlymphadenopathy. Diffuse atherosclerotic calcification of the abdominalaorta with no AAA. The IVC is unremarkable. CT PELVIS: No evidence of pelvic mass nor adenopathy. No acuteinflammatory change, abscess or ascites. Atherosclerotic vascularcalcifications are noted. Incidental note is made of a small focus ofchronic AVN involving the left femoral head. IMPRESSION: 1. 4 MM IN DIAMETER STONE IN THE DISTAL LEFT URETER AT THE LEFT UVJCAUSING HIGH- GRADE OBSTRUCTION. 2. 4 MM NONOBSTRUCTING STONE LOWER POLE LEFT KIDNEY. 3. NO ACUTE INFLAMMATORY CHANGE, ABSCESS OR ASCITES. 4. NO EVIDENCE OF MECHANICAL BOWEL OBSTRUCTION OR PERFORATION. 5. DIFFUSE ATHEROSCLEROTIC VASCULAR CALCIFICATION. 6. SMALL FOCUS OF CHRONIC AVN LEFT FEMORAL HEAD. Signed: Nacho Garcia MD Referred By: Interpreted By: Nacho Garcia MD, 04/01/2023 7:29 AM us Tiago Rojas MD CT Final Resu lt * HEPATITIS C ANTIBODY W/RFX TO HCV RNA ([facility] ONLY) (09/06/2020 8:35 AM FINAL RAIL CUTTER) HEPATITIS C AB NON-REACTI VE NON-REACT CORI [facility] SIGNAL TO CUTOFF 0.02 <[address] [facility] Comment: HCV antibody was non-reactive. There is no laboratory evidence of HCV infection. In most cases, no further action is required. However, if recent HCV exposure is suspected, a test for HCV RNA (test code 35110) is suggested. For additional information please refer to http://education.[employer]/faq/YVX38h9 (This link is being provided for informational/ educational purposes only.) 09/06/2020 8:35 AM FINAL RAIL CUTTER 09/07/2020 4:25 AM FINAL RAIL CUTTER us Ivon Castañeda MD LABORATORY Final Result [facility] [id number] [address] [id number] from Last 3 Months or Most Recently Relevant to Health Maintenance Insurance MEDICAID MEDICARE MEDICAID Advance Directives * Full Code (Latest Code Status on File) Date Activated Date Inactivated Comments 10/29/2021 2:45 PM 10/30/2021 1:57 PM * Full Code Date Activated Date Inactivated Comments 10/29/2021 1:02 PM 10/29/2021 2:45 PM * DNR Date Activated Date Inactivated Comments 10/22/2021 12:59 PM 10/25/2021 4:33 PM * Full Code Date Activated Date Inactivated Comments 10/22/2021 12:37 PM 10/22/2021 12:59 PM * Full Code Date Activated Date Inactivated Comments 11/23/2017 11:07 PM 11/25/2017 4:22 PM Care Teams It Professional Relationship Specialty Start Date End Date Batista, July A, PARK GUIDE [address] [facility] [address] [place] [address] PCP - General NURSE PRACTITIONER 12/07/22 Ivon Castañeda MD INTERNAL MEDICINE 07/21/21 Robert Pierre MD [facility]. [facility] [address] [place] [address] [place] [employer] CARDIOVASCULAR DISEASE 02/01/16 Viv Leyva MD [address] [facility] [address] [place] [address] INTERNAL MEDICINE 04/14/23 Lucho Gutiérrez MD [address] [facility] [address] [place] [address] CARDIOVASCULAR DISEASE 06/29/24
--- OUTSIDE RECORDS SUMMARY | 2025-08-23 08:13 | XMS_ITS | Encounter Summary ---
Author Organization [facility] Address [address] [place] [address] Care Team Providers Care Property Consultant Name Role Phone Ivon Castañeda MD Unavailable [phone] Robert Pierre MD Unavailable [phone] July Batsita APRN Primary Care Provider [phone] Viv Leyva MD Unavailable [phone] Lucho Gutiérrez MD Unavailable [phone] Encounter Details Date Type Department Care Team (Late st Contact Info) Description 01/10/2024 Flexion Message Enc [facility] Family & Internal Medicine [address] [address] Florian, [facility] Provider pulmonology Social History Tobacco Use Types Packs/Day Years [...] Sex Assigned at Male 09/18/2024 10:20 AM LDR RN Legal Sex Male 12:08 PM CDT Gender [...] Assessment Author Status No 10/29/2021 3:32 PM LDR RN Activ e * RETIRED Are you blind or do you have serious difficulty seeing, even when wearing glasses? Answer Date of Assessment Author Status No 10/29/2021 3:32 PM LDR RN Activ e * Do you have serious [...] st Contact Info) Description 09/06/2025 8:20 AM LDR RN Office Visit [facility] Family & Internal Medicine [facility] [id number] [place] [address] July Batista, BRIEF WRITER [address] [address] documented as of this encounter Goals Goal [...] Total Score: 0 09/26/19 23 1:35 PM LDR RN documented as of this encounter Care Teams Property Consultant Relationship Specialty Start Date End Date BatistaJuly APRN [address] [facility] [address] [place], [place] [id number] PCP - General NURSE PRACTITIONER 12/07/22 Ivon Castañeda MD INTERNAL MEDICINE 07/21/21 Robert Pierre MD [facility] [address] [place] [address] [place] [employer] Operator CARDIOVASCULAR DISEASE 02/01/16 Viv Leyva MD [facility] [address] [place] [address] INTERNAL MEDICINE 04/14/23 Lucho Gutiérrez MD [address] [address] CARDIOVASCULAR DISEASE 06/29/24 documented as of this encounter
--- OUTSIDE RECORDS SUMMARY | 2025-08-23 08:13 | XMS_ITS | Clinical Summary ---
Author Organization [facility] Address [address], [facility] [place] [address] Phone Care Team Providers Care Aluminum Molder Name Role Phone Ivon Castañeda MD Primary Care Provider + [phone] Robert Pierre MD Unavailable [phone] Allergies No known active allergies Medications [...] Date Smoking Tobacco: Some Days Cigarettes 2 45 Started: 09/02/1980 Alcohol Use Standard Drinks/Week Comments [...] 11:44 AM CDT Height 191.8 cm (6' 3.5) 04/11/2016 11 :44 AM CDT Body Mass Index 22.05 04/11/2016 11:44 AM CDT Plan of Treatment Health Maintenance Due Date Last Done Comments Hepatitis C Virus (HCV) Screening 1960 TdaP Immunization 1960 Cologuard 12/06/2004 Colonoscopy 12/06/2004 Colorectal Cancer Screening 12/06/2004 Immunochemical Fecal Occult Blood 12/06/2004 Pneumococcal Immunization (5 0+ years) (1 of 1 - PCV) 12/06/2009 Zoster Immunization (1 of 2) 12/06/2009 Influenza Immunization (#1) 2025 SARS-COV-2 Immunization ( - season) 2025 Respiratory Syncytial Virus (RSV) Immunization (Adult) (1 - 1-dose 75+ series) 12/06/2034 Hepatitis B Immunization Aged Out No longer eligible based on patient's age to complete this topic Human Papillomavirus (HPV) Immunization Aged Out No longer eligible b ased on patient's age to complete this topic Meningococcal Immunization (ACWY) Aged Out No longer eligible based on patient's age to complete this topic Rotavirus Immunization Aged Out No lo nger eligible based on patient's age to complete this topic Insurance [place] [id number] Care Teams Aluminum Molder Relationship Specialty Start Date End Date Ivon Castañ[place] [address] [place] [address] PCP - General Internal Medicine 03/28/16 [place] [address] [place], [place] [id number] Consulting Physician Internal Medicine 03/28/16
--- OUTSIDE RECORDS SUMMARY | 2025-08-23 08:13 | XMS_ITS | Encounter Summary ---
Author Organization [facility] Address [address] [place] [address] Care Team Providers Care Beater Worker Helper Name Role Phone Ivon Castañeda MD Primary Care Provider + [phone] Ivon Castañeda MD Primary Care Provider + [phone] Ivon Castañeda MD Unavailable [phone] Robert Pierre MD Unavailable [phone] July Batista APRN Primary Care Provider + [phone] Viv Leyva MD Unavailable + [phone] Lucho Gutiérrez MD Unavailable [phone] Encounter Details Date Type Department Care Team (Late st Contact Info) Description 07/02/2016 Abstract [facility] AT [address] [address] Vincent Saldana MA Social History Tobacco Use Types Packs/Day Years Used Date Smoking Tobacco: Every Day Comments:He smoked for a vilma g time. He was able to quit for 2 years and then began again. Sex and Gender Information Value Date Recorded Sex Assigned at Male 09/18/2024 10:20 AM USED CAR SALESPERSON Legal Sex Male 12:08 PM CDT Gender Identity Not on file Sexual Orientation Not on file documented as of this encounter Plan of Treatment Upcoming Encounters Date Type Department Care Team (Late st Contact Info) Description 09/06/2025 8:20 AM USED CAR SALESPERSON Office Visit [facility] Medical Group Family & Internal Medicine [address] [address] July Batista, MANAGED CARE LIAISON [address] [facility] [address] [address] [place] [address] documented as of this encounter Procedures Procedure Name Priority Date/Time Associated Diagnosis Comments CBC (OUTSIDE LAB) Routine 06/22/2016 BASIC METABOLIC PANEL Routine 06/22/2016 CK (CPK) Routine 06/22/2016 documented in this encounter Results * CK (CPK) (06/22/2016) CPK 100 06/22/2016 us Doc [facility] Abstract LABORATORY Final Result * BASIC METABOLIC PANEL (06/22/2016) SODIUM S/P/B 138 POTASSIUM S/P/B 4.5 CO2 28 CHLORIDE S/P/B 105 GLUCOSE 113 CALCIUM S/P/B 9.8 BUN 12 CREATININE S/P/B 0.98 EGFR NON-AFR. AMER. >60 06/22/2016 us Doc [facility] Abstract LABORATORY Final Result * CBC (OUTSIDE LAB) (06/22/2016) WBC 11.1 HGB 14.7 HCT 42 PLT 158 06/22/2016 us Doc [facility] Abstract LAB-OUTSIDE/ABSTRACTED Final Result documented in this encounter Visit Diagnoses Not on filedocumented in this encounter Additional Health Concerns Infection Onset Date Last Indicated Resolved Time COVID-19 Confirmed 04/25/2020 04/25/2020 0 12:33 AM CDT COVID-19 Rule Out 04/25/2020 04/25/2020 04/26/2020 5:40 PM CDT COVID-19 Rule Out 08/06/2021 08/06/2021 08/06/2021 1:59 PM USED CAR SALESPERSON documented as of this encounter Care Teams Beater Worker Helper Relationship Specialty Start Date End Date Ivon Castañeda MD PCP - General INTERNAL MEDICINE 04/02/16 07/20/21 Ivon Castañeda MD PCP - General INTERNAL MEDICINE 07/21/21 12/06/22 July Batista APRN [address] [address] PCP - General NURSE PRACTITIONER 12/07/22 Ivon Castañeda MD INTERNAL MEDICINE 07/21/21 Robert Pierre MD [address] [address] [place] Generator Switchboard Operator CARDIOVASCULAR DISEASE 02/01/16 Viv Leyva MD [facility] [address] [address] INTERNAL MEDICINE 04/14/23 Lucho Gutiérrez MD 1225 [facility] [address]10 [place] [address] CARDIOVASCULAR DISEASE 06/29/24 documented as of this encounter
--- OUTSIDE RECORDS SUMMARY | 2025-08-23 08:13 | XMS_ITS | Encounter Summary ---
Author Organization [facility] Address [address] [place] [address] Care Team Providers Care Md Ophthalmologist Name Role Phone Ivon Castañeda MD Unavailable [phone] Robert Pierre MD Unavailable [phone] July Batista APRN Primary Care Provider [phone] Viv Leyva MD Unavailable [phone] Lucho Gutiérrez MD Unavailable [phone] Encounter Details Date Type Department Care Team (Late st Contact Info) Description 07/08/2025 Moov cc. Message Enc [facility] Medical [facility] Family & Internal Medicine [address] [address] Florian, [facility] Provider Blood pressure readings Social History Tobacco Use Types Packs/Day Years [...] Sex Assigned at Male 09/18/2024 10:20 AM RIBBON CUTTER Legal Sex Male 12:08 PM CDT [...] Assessment Author Status No 10/29/2021 3:32 PM RIBBON CUTTER Activ e * RETIRED Are you blind or do you have serious difficulty seeing, even when wearing glasses? Answer Date of Assessment Author Status No 10/29/2021 3:32 PM RIBBON CUTTER Activ e * Do you have serious [...] st Contact Info) Description 09/06/2025 8:20 AM RIBBON CUTTER Office Visit [facility] Medical [facility] Family & Internal Medicine [facility] [address] [place] [address] July Batista, EPIC BEACON ANALYST [address] [address] documented as of this encounter [...] Total Score: 0 09/18/19 25 9:57 AM RIBBON CUTTER documented as of this encounter Care Teams Md Ophthalmologist Relationship Specialty Start Date End Date July Batista APRN [address] [facility] [address] [place], [place] [id number] PCP - General NURSE PRACTITIONER 12/07/22 Ivon Castañeda MD INTERNAL MEDICINE 07/21/21 Robert Pierre MD [facility]. [facility] [address] [place], [place] [phone] [facility] Man CARDIOVASCULAR DISEASE 02/01/16 Viv Leyva MD [facility] [address] [place], [place] [id number] INTERNAL MEDICINE 04/14/23 Lucho Gutiérrez MD 1225 [facility] 2310 [place] [address] CARDIOVASCULAR DISEASE 06/29/24 documented as of this encounter
[2025-08-23] MEDS: ASPIRIN 81 MG CHEWABLE TABLET 324 MG PO (08:20)
[2025-08-23 08:32] LABS: Hematocrit 45.6 % (42.0-52.0); Hemoglobin 15.5 g/dL (14.0-18.0); Immature Granulocyte Percent A 0.4 % (0-0.5); Lymphocytes Absolute Auto 2.38 K/mm3 (0.9-3.2); Mean Corpuscular HGB Conc 34.0 g/dl (32-36); Mean Corpuscular Hemoglobin 31.6 pg (26-34); Mean Corpuscular Volume 92.9 fl (80-100); Nucleated Red Blood Cells Absolute Auto 0.000 K/mm3 (0.0-0.012); Nucleated Red Blood Cells Perc 0.0 % (0.0-0.2); Platelet Count Result 163 k/mm3 (150-375); Red Blood Count 4.91 M/mm3 (4.6-6.20); White Blood Count 8.3 K/mm3 (4.5-10.0)
[2025-08-23 08:46] LABS: INR 1.0; Partial Thromboplastin Time 29.8 Seconds (22.3-36.8); Prothrombin Time 12.9 Seconds (11.1-14.7)
[2025-08-23 08:49] LABS: Alanine Aminotransferase 41 U/L (6-50); Albumin Level 4.9 g/dL (3.5-5.1); Alkaline Phosphatase 90 U/L (38-126); Anion Gap 9 mmol/L (4-12); Aspartate Amino Transferase 37 U/L (17-59); Bilirubin,Total 0.6 mg/dL (0.2-1.3); Blood Urea Nitrogen 15 mg/dL (9-20); Calcium 9.8 mg/dL (8.4-10.2); Carbon Dioxide 25 mmol/L (22-30); Chloride 103 mmol/L (98-107); Estimated CRCL calculation 86 ml/min; Estimated Glomerular Filt Rate > 60; Glucose 123 mg/dL (65-110); Lipase 60 U/L (23-300); Potassium 4.8 mmol/L (3.4-5.0); Sodium 137 mmol/L (137-145); Total Protein 8.1 g/dL (6.3-8.2)
[2025-08-23 09:00] LABS: Troponin I < 0.012 ng/mL (0.000-0.034)
--- NOTE | 2025-08-23 09:27 | ED.GENADULT ---
HPI - General Adult General Chief complaint: Chest Pain Stated complaint: chest pain Time Seen by Provider: 08/23/25 08:50 History of Present Illness HPI narrative: 64-year-old male presents to the emergency department for evaluation for intermittent chest pain. Patient does have a significant history of coronary artery disease. Patient does have a 6 stents in his coronary arteries. Most recent stent was placed approximately 1.5 years ago at [facility]. patient does have follow-up Dr. Gutiérrez. patient reports his last cardiac catheterization was done here [place] approximately 3-4 months ago. Patient has been complaining epigastric and lower chest pain over the last 24 hours. Patient has been having left-sided posterior neck pain over the last 3-4 months. Related Data Home Medications ?Medication ?Instructions ?Recorded ?Confirmed ?Last Taken ?Type albuterol sulfate 90 mcg/actuation 2 puff inhalation Q6H 11/01/21 08/23/25 08/22/25 21:00 History aerosol inhaler (Proventil HFA) 2 puff aspirin 81 mg capsule 81 mg PO DAILY 11/01/21 08/23/25 08/23/25 08:00 History 81 mg atorvastatin 80 mg tablet 80 mg PO DAILY 11/01/21 08/23/25 08/22/25 21:00 History 80 mg ticagrelor 90 mg tablet 90 mg PO Q12H 11/01/21 08/23/25 08/23/25 08:00 History 90 mg allopurinol 300 mg tablet 300 mg PO DAILY 08/23/25 08/23/25 08/23/25 08:00 History 300 mg amlodipine 5 mg tablet 5 mg PO DAILY 08/23/25 08/23/25 08/23/25 08:00 History 5 mg fluticasone furoate 100 1 inh inhalation Q24H 08/23/25 08/23/25 08/22/25 21:00 History mcg-vilanterol 25 mcg/dose 1 inh inhalation powder (Breo Ellipta) losartan 25 mg tablet 25 mg PO DAILY 08/23/25 08/23/25 08/23/25 09:00 History montelukast 10 mg tablet 10 mg PO QPM 08/23/25 08/23/25 08/22/25 21:00 History 10 mg pantoprazole 40 mg tablet,delayed 40 mg PO DAILY 08/23/25 08/23/25 08/23/25 08:00 History release 40 mg prednisone 5 mg tablet 5 mg PO DAILY 08/23/25 08/23/25 08/22/25 21:00 History 5 mg umeclidinium 62.5 mcg/actuation 1 inh inhalation Q24H 08/23/25 08/23/25 08/22/25 21:00 History blister powder for inhalation 1 inh (Incruse Ellipta) Allergies Allergy/AdvReac Type Severity Reaction Status Date / Time No Known Allergies Allergy Verified 08/23/25 15:38 Review of Systems Review of Systems: All systems reviewed & are unremarkable except as noted in HPI and below PMFSH Past Medical History Medical History COPD (chronic obstructive pulmonary disease) COPD (chronic obstructive pulmonary disease) Coronary disease Dyslipidemia Former tobacco use Hypertension Family History Family History Father Acute myocardial infarction Sibling Acute myocardial infarction Social History Social History Smoking packs per day: 2.5 Smoking cigarettes per day: 50.0 Years smoked: 35 Smoking pack-years: 87.50 Smoking status: Former smoker Tobacco type: cigarettes Smokeless tobacco user: chewing tobacco Second hand tobacco smoke exposure: No Smoking end date: 09/02/13 Alcohol intake: current Drinks per week: 49 Alcohol use details: Drinks six beers per day or better Substance use: never Substance use type: does not use Last use: 06/07/24 Lack of Transportation: No Lack of Food: Never True Current Housing: I Have Housing Concerned About Future Housing: No Difficulty Paying Gas/Electric Bills: No Difficulty Paying for Meds: No Currently Unemployed: No Education: High School Diploma/GED Difficulty w/ Childcare or Family Care: No Living arrangements: other Additional living arrangements comments: Lives with his girlfriend and his mother Spiritual care concerns: No Exam Narrative: APPEARANCE: Well appearing, no pain, no distress, well-nourished. HEAD: Reproducible tenderness to the occipital nerve and trapezius insertion point on the left EYES: PERRLA/EOMI, conjunctivae clear. NOSE: Normal no drainage EARS:TMS clear with good light reflex. THROAT: Pharynx clear, no exudate. NECK: Supple. No adenopathy, no masses. RESPIRATORY: Airway patent, respirations nonlabored. Clear to auscultation bilaterally, no rales, rhonchi, wheezing. CARDIOVASCULAR: Regular rate and rhythm without murmurs rubs or gallops. ABDOMINAL: epigastric tenderness to palpation MUSCULOSKELETAL: Moves all extremities. Strength/ROM intact, No edema, No calf tenderness. NEURO: Alert. Cranial nerves II through XII intact. Good gait. Good coordination SKIN: Warm, dry. Normal Color Course Vital Signs Vital signs: Vital Signs Temperature 97.7 F 08/23/25 08:08 Pulse Rate 94 08/23/25 08:08 Respiratory Rate 12 08/23/25 08:08 Blood Pressure 175/118 H 08/23/25 08:08 Pulse Oximetry 97 08/23/25 08:08 Oxygen Delivery Room Air 08/23/25 08:08 Temperature 97.9 F 08/23/25 15:16 Pulse Rate 86 08/23/25 18:00 Respiratory Rate 24 H 08/23/25 15:16 Blood Pressure 156/90 H 08/23/25 15:16 Pulse Oximetry 99 08/23/25 15:16 Oxygen Delivery Room Air 08/23/25 08:16 [facility] Narrative Medical decision making narrative: 64-year-old male presents emergency department for evaluation for neck pain and chest pain. Patient had negative serial troponins and patient's CTA of head neck was negative for acute abnormalities. Patient is currently afebrile with no leukocytosis and stable hemoglobin of 15.5. Patient had no significant acute abnormalities on his CMP patient had negative serial troponins. Patient did have elevated triglycerides and cholesterol. Patient's risk factors were concerning and patient was not pain free after treatment. I discussed case with hospitalist patient was accepted for further cardiac evaluation. Patient family updated the results of the workup they are comfortable the plan for admission for further evaluation. Patient was resting comfortably at time of admission. Differential Diagnosis Differential Diagnosis: ACS, pneumonia, upper gastritis, vertebral artery dissection, muscle spasm Lab Data [facility] Lab Attestation statement: I personally reviewed the patient's lab results. 08/23/25 08:18 08/23/25 08:19 Labs: Lab Results 12/22/25 12/22/25 12/22/25 Range/Units 08:18 08:19 11:31 WBC 8.3 (4.5-10.0) K/mm3 RBC 4.91 (4.6-6.20) M/mm3 Hgb 15.5 (14.0-18.0) g/dL Hct 45.6 (42.0-52.0) % MCV 92.9 (80-100) fl MCH 31.6 (26-34) pg MCHC 34.0 (32-36) g/dl RDW 14.4 (11.5-14.5) % Plt Count 163 (150-375) k/mm3 MPV 12.1 H (7.4-10.4) fl Immature Gran % (Auto) 0.4 (0-0.5) % Neut % (Auto) 61.1 (45.5-73.1) % Lymph % (Auto) 28.8 (18.3-44.2) % [place] % (Auto) 7.1 (2.6-8.5) % Eos % (Auto) 1.6 (0-4.4) % Baso % (Auto) 1.0 (0.2-1.2) % Lymph # (Auto) 2.38 (0.9-3.2) K/mm3 [place] # (Auto) 0.6 (0.1-0.6) K/mm3 Eos # (Auto) 0.1 (0-0.3) K/mm3 Baso # (Auto) 0.1 (0.0-0.1) K/mm3 Abs Immat Gran (auto) 0.03 (0.00-0.031) K/mm3 Absolute Neuts (auto) 5.1 (1.3-6.7) K/mm3 Absolute Nucleated RBC 0.000 (0.0-0.012) K/mm3 Nucleated RBC % 0.0 (0.0-0.2) % PT 12.9 (11.1-14.7) Seconds INR 1.0 APTT 29.8 (22.3-36.8) Seconds D-Dimer 0.46 (<0.48) ug/mL Sodium 137 (137-145) mmol/L Potassium 4.8 (3.4-5.0) mmol/L Chloride 103 (98-107) mmol/L Carbon Dioxide 25 (22-30) mmol/L Anion Gap 9 (4-12) mmol/L BUN 15 D (9-20) mg/dL Creatinine 0.95 (0.7-1.3) mg/dL Estim Creat Clear Calc 86 ml/min Estimated GFR > 60 (59 - ) Glucose 123 H (65-110) mg/dL Calcium 9.8 (8.4-10.2) mg/dL Total Bilirubin 0.6 (0.2-1.3) mg/dL AST 37 (17-59) U/L ALT 41 (6-50) U/L Alkaline Phosphatase 90 (38-126) U/L Troponin I < 0.012 < 0.012 (0.000-0.034) ng/mL Total Protein 8.1 (6.3-8.2) g/dL Albumin 4.9 (3.5-5.1) g/dL Triglycerides 177 H (<150) mg/dL Cholesterol 241 H (0-200) mg/dL LDL Cholesterol Direct 119 mg/dL HDL Direct 72 mg/dL Lipase 60 (23-300) U/L Imaging Data Radiologist's impression: ITS Impressions Chest X-Ray 08/23/25 09:10 IMPRESSION: 1. No acute cardiopulmonary findings. Head/Neck CTA 08/23/25 12:57 IMPRESSION: CT HEAD: 1. No acute intracranial findings. CTA NECK: 1. No ICA stenosis or other acute arterial abnormality. 2. Emphysema. Recommend annual screening CT chest. CTA HEAD: 1. No large vessel arterial occlusive disease or other acute findings. 2. No aneurysms. Discharge Plan Discharge Clinical Impression: Chest pain Patient Disposition: Still a Patient Condition: Stable Quality HEART score for chest pain patients History: moderately suspicious ECG: normal Age: > 45 and < 65 years Risk factors: > or = to 3 risk factors of atherosclerotic disease Troponin: < or = to 1x normal limit Heart score: 4
--- OUTSIDE RECORDS SUMMARY | 2025-08-23 10:48 | XMS_ITS | Encounter Summary ---
Author Organization [facility] Address [address] [place] [address] Care Team Providers Care Supervisor Wet Pour Name Role Phone Ivon Castañeda MD Primary Care Provider + [phone] Ivon Castañeda MD Primary Care Provider + [phone] Ivon Castañeda MD Unavailable [phone] Robert Pierre MD Unavailable [phone] July Batista APRN Primary Care Provider + [phone] Viv Leyva MD Unavailable + [phone] Lucho Gutiérrez MD Unavailable [phone] Encounter Details Date Type Department Care Team (Late Contact Info) Description 06/22/2016 Abstract [facility] CONVERSION [address] [place] [address] , Generic Conversion, Social History Tobacco Use Types Packs/Day Years Used Date Smoking Tobacco: Every Day Comments:He smoked for a vilma g time. He was able to quit for 2 years and then began again. Sex and Gender Information Value Date Recorded Sex Assigned at Male 09/18/2024 10:20 AM ARROW POINT ATTACHER Legal Sex Male 12:08 PM CDT Gender Identity Not on file Sexual Orientation Not on file documented as of this encounter Plan of Treatment Upcoming Encounters Date Type Department Care Team (Late Contact Info) Description 09/06/2025 8:20 AM ARROW POINT ATTACHER Office Visit [facility] Medical Group Family & Internal Medicine - [place] [address] [place] [address] July Batista APRN [address] [facility] [address] [place] [address] documented as of this encounter Visit Diagnoses Not on filedocumented in this encounter Additional Health Concerns Infection Onset Date Last Indicated Resolved Time COVID-19 Confirmed 04/25/2020 04/25/2020 0 12:33 AM CDT COVID-19 Rule Out 04/25/2020 04/25/2020 04/26/2020 5:40 PM CDT COVID-19 Rule Out 08/06/2021 08/06/2021 08/06/2021 1:59 PM ARROW POINT ATTACHER documented as of this encounter Care Teams Supervisor Wet Pour Relationship Specialty Start Date End Date Ivon Castañeda MD PCP - General INTERNAL MEDICINE 04/02/16 07/20/21 Ivon Castañeda MD PCP - General INTERNAL MEDICINE 07/21/21 12/06/22 July Batista APRN [address] [facility] [address] [place] [address] PCP - General NURSE PRACTITIONER 12/07/22 Ivon Castañeda MD INTERNAL MEDICINE 07/21/21 Robert Pierre MD [address] [address] [place] Peeling Machine Operator CARDIOVASCULAR DISEASE 02/01/16 Viv Leyva MD [address] [place] [address] INTERNAL MEDICINE 04/14/23 Lucho Gutiérrez MD [address] [facility] [address] [place] [address] CARDIOVASCULAR DISEASE 06/29/24 documented as of this encounter
--- OUTSIDE RECORDS SUMMARY | 2025-08-23 10:48 | XMS_ITS | Clinical Summary ---
Author Organization [facility] Address [address], [facility] [place] [address] Phone Care Team Providers Care Glass Blowing Instructor Name Role Phone Ivon Castañeda MD Primary Care Provider + [phone] Robert Pierre MD Unavailable [phone] Allergies No known active allergies Medications [...] to complete this topic Insurance [place] [id number] Care Teams Glass Blowing Instructor Relationship Specialty Start Date End Date Ivon Castañeda [place] [address] [place] [address] PCP - General Internal Medicine 03/28/16 [place] [address] [place], [place] [id number] Consulting Physician Internal Medicine 03/28/16
--- OUTSIDE RECORDS SUMMARY | 2025-08-23 10:48 | XMS_ITS | Encounter Summary ---
Author Organization [facility] Address [facility] [place] [address] Care Team Providers Care Law Tutor Name Role Phone Ivon Castañeda MD Unavailable [phone] Robert Pierre MD Unavailable [phone] July Batista APRN Primary Care Provider [phone] Viv Leyva MD Unavailable [phone] Lucho Gutiérrez MD Unavailable [phone] Encounter Details Date Type Department Care Team (Late st Contact Info) Description 09/25/2024 [email or web address] Message Enc [facility] Medical Group Family & Internal Medicine [address] [address] Florian, [facility] Provider Lab results Social History Tobacco Use [...] Sex Assigned at Male 09/18/2024 10:20 AM VIDEOTAPE EDITOR Legal Sex Male 12:08 PM CDT Gender [...] Assessment Author Status No 10/29/2021 3:32 PM VIDEOTAPE EDITOR Activ e * RETIRED Are you blind or do you have serious difficulty seeing, even when wearing glasses? Answer Date of Assessment Author Status No 10/29/2021 3:32 PM VIDEOTAPE EDITOR Activ e * Do you have serious [...] st Contact Info) Description 09/06/2025 8:20 AM VIDEOTAPE EDITOR Office Visit [facility] Medical Group Family & Internal Medicine [facility] [address] [place] [address] July Batista, EMAIL DEPLOYMENT SPECIALIST [address] [address] documented as of this encounter [...] Total Score: 0 09/18/19 25 9:57 AM VIDEOTAPE EDITOR documented as of this encounter Care Teams Law Tutor Relationship Specialty Start Date End Date July Batista APRN [address] [facility] [address] [place], [place] [id number] PCP - General NURSE PRACTITIONER 12/07/22 Ivon Castañeda MD INTERNAL MEDICINE 07/21/21 Robert Pierre MD [facility]. [facility] [address] [place], [place] [id number] [place] Welding Pantograph Operator CARDIOVASCULAR DISEASE 02/01/16 Viv Leyva MD [facility] [address] [place], [place] [phone] INTERNAL MEDICINE 04/14/23 Lucho Gutiérrez MD [address] [facility] [place] [address] [place] [address] CARDIOVASCULAR DISEASE 06/29/24 documented as of this encounter
--- OUTSIDE RECORDS SUMMARY | 2025-08-23 10:48 | XMS_ITS | Clinical Summary ---
Author Organization [facility] Address [address] [place] [address] Care Team Providers Care Airborne Operations Superintendent Name Role Phone July Batista NP Primary Care Provider [phone]- [phone] Allergies No known active allergies Medications albuterol [...] 24 hr tabletIndication s:Coronary artery disease involving seneca-cayuga coronary artery of seneca-cayuga heart without angina pectoris Take 1 tablet (30 mg total) by mouth daily 30 tablet 11 4 Active metoprolol XL (TOPROL-XL) 25 mg extended release tabletIndication s:Coronary artery disease involving seneca-cayuga coronary artery of seneca-cayuga heart without angina pectoris Take 1 tablet (25 mg total) by mouth daily 30 tablet 11 4 Active atorvastatin (LIPITOR) 80 mg tabletIndication s:Lipid screening Take 1 tablet by mouth once daily 30 tablet 4 5 Active Brilinta 90 mg tablet Take 1 tablet by mouth twice daily 60 tablet 4 5 Active losartan (COZAAR) 25 mg tabletIndication s: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,Essenti al hypertension [...] Description 05/25/2025 8:15 AM CDT Office Visit [facility] Cardiology at [address] [place] [address] Lucho Gutiérrez MD 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 CARDIAC CATHETERIZATION 04/23/2025 N/A Procedure: IVUS/OCT CORS OR GRAFTS, FIRST VESSEL (+) [id number]; Surgeon: Ed Mosley MD; Location: CARDIAC UNDERBASTER; Service: Cardiovascular; Laterality: N/A; Medical devices from this surgery are in the Medical Devices section. CARDIAC CATHETERIZATION 04/23/2025 N/A Procedure: IVUS/OCT CORS OR GRAFTS, EACH ADDTN'L VESSEL (+) [id number]; Surgeon: Ed Mosley MD; Location: CARDIAC UNDERBASTER; Service: Cardiovascular; Laterality: N/A; Medical devices from this surgery are in the Medical Devices section. CARDIAC CATHETERIZATION 04/23/2025 N/A Procedure: ULTRASOUND GUIDANCE FOR VASCULAR ACCESS S&I [id number]; Surgeon: Ed Mosley MD; Location: CARDIAC UNDERBASTER; Service: Cardiovascular; Laterality: N/A; Medical devices from [...] history exists Medical Devices Implanted Type Area Jump Iron Machine Presser Device Identifier Shelf Expiration Date Model / Serial / Lot Mendez Vascular System Closure Repair Femoral Artery Suture Mediated Perclose Prostyle [id number] - [id number] Implanted:Qty: 1 on 04/23/2025 by Ed Mosley MD at [facility] Mendez Vascular 03/01/2027 [id number] / [id number] Insurance [facility] MEDICARE [facility] Address: [address] [address] [place] [address] Advance Directives For more information, please contact: [phone] * Full Code (Latest Code Status on File) Date Activated Date Inactivated Comments 04/23/2025 1:59 PM 04/23/2025 9:28 PM Care Teams Airborne Operations Superintendent Relationship Specialty Start Date End Date July Batista NP PCP - General Nurse Practitioner 07/08/24
--- OUTSIDE RECORDS SUMMARY | 2025-08-23 10:48 | XMS_ITS | Clinical Summary ---
Author Organization [facility] Address [address] [place] [address] Care Team Providers Care Edge Kitter Name Role Phone Lester July Hermilo AYALA-PULMONARY DISEASE SPECIALIST Primary Care Provider Source Comments [facility],non-owned Affiliates and Associated Physician Practices is amultiple site organization consisting of ambulatory clinics and hospital sitesin [place], [place] and [place]. This disclosure is being madepursuant to the Care Everywhere program and may not contain all information available regarding this patient. Last updated 18.[facility] Allergies No known active allergies Medications * [...] mouth every 12 hours Active HYDROcodone-acet aminophen (Bainbridge) 5-325 MG tablet Take 1 (one) tablet [...] every day after a meal. Active Tiotropium Elmore Monohydrate (Spiriva Respimat) 1.25 MCG/ACT AERS Active [...] this topic Medical Devices Implanted Type Area Firing Pin Gauger Device Identifier Shelf Expiration Date Model / Serial / Lot Stent Uret 6fr 22-30cm Pgtl Crv Tpr Tip - Sn/A Implanted:Qty: 1 on 04/11/2023 by Orville Vega MD at [facility] Left: Ureter Renrenmoneymed 01/27/2026 [id number] / N/A / [id number] Insurance MEDICAID [employer] [place] Care Teams Edge Kitter Relationship Specialty Start Date End Date July Batista, PATTERN DRAFTER-PULMONARY DISEASE SPECIALIST [address] [facility] [address] [place] [address] PCP - General 04/10/23
--- OUTSIDE RECORDS SUMMARY | 2025-08-23 10:48 | XMS_ITS | Encounter Summary ---
Author Organization [facility] Address [address] [place] [address] Care Team Providers Care Wrapper Selector Name Role Phone Ivon Castañeda MD Primary Care Provider + [phone] Ivon Castañeda MD Unavailable [phone] Robert Pierre MD Unavailable [phone] July Batista APRN Primary Care Provider + [phone] Viv Leyva MD Unavailable + [phone] Lucho Gutiérrez MD Unavailable [phone] Encounter Details Date Type Department Care Team (Late st Contact Info) Description 07/11/2022 Pili Pop Message Enc [facility] Medical [facility] Family & Internal Medicine [address] [address] [place]ian, [facility] Provider Due for routine follow up appt [...] Sex Assigned at Male 09/18/2024 10:20 AM CASHIERS BUSSERS FOOD RUNNERS Legal Sex Male 12:08 PM CDT Gender [...] Assessment Author Status No 10/29/2021 3:32 PM CASHIERS BUSSERS FOOD RUNNERS Activ e * RETIRED Are you blind or do you have serious difficulty seeing, even when wearing glasses? Answer Date of Assessment Author Status No 10/29/2021 3:32 PM CASHIERS BUSSERS FOOD RUNNERS Activ e * Do you have serious difficulty walking or climbing stairs? Answer Date of Assessment Author Status No 10/29/2021 3:32 PM Kalina Ventura RN Active * Do you have difficulty dressing or bathing? Answer Date of Assessment Author Status No 10/29/2021 3:32 PM CASHIERS BUSSERS FOOD RUNNERS Kalina Stevens RN Active * Because of [...] st Contact Info) Description 09/06/2025 8:20 AM CASHIERS BUSSERS FOOD RUNNERS Office Visit [facility] Medical Group Family & Internal Medicine [facility] [address] [place] [address] July Batista APRN [address] [facility] [address] [place] [address] documented as of this encounter Goals [...] Total Score: 1 10/10/19 22 8:28 AM CASHIERS BUSSERS FOOD RUNNERS documented as of this encounter Care Teams Wrapper Selector Relationship Specialty Start Date End Date Ivon Castañeda MD PCP - General INTERNAL MEDICINE 07/21/21 12/06/22 July Batista APRN [address] [address] PCP - General NURSE PRACTITIONER 12/07/22 Ivon Castañeda MD INTERNAL MEDICINE 07/21/21 Robert Pierre MD [address] [id number] [place] [employer] Supervisor CARDIOVASCULAR DISEASE 02/01/16 Viv Leyva MD [facility] [id number] INTERNAL MEDICINE 04/14/23 Lucho Gutiérrez MD [facility]5 [facility] [address] [place] [address] CARDIOVASCULAR DISEASE 06/29/24 documented as of this encounter
--- OUTSIDE RECORDS SUMMARY | 2025-08-23 10:48 | XMS_ITS | Encounter Summary ---
Author Organization [facility] Address [facility] [place] [address] Care Team Providers Care Transit Specialist Name Role Phone Ivon Castañeda MD Unavailable [phone] Robert Pierre MD Unavailable July Batista APRN Primary Care Provider [phone] Viv Leyva MD Unavailable +[phone] Lucho Gutiérrez MD Unavailable [phone] Encounter Details Date Type Department Care Team (Late st Contact Info) Description 02/27/2023 MyChart Message Enc [facility] - [facility] [address] [place] [address] [employer], an [facility], [facility] Provider Air Quality Message Social History [...] Sex Assigned at Male 09/18/2024 10:20 AM APPLICATIONS ENGINEER MANUFACTURING Legal Sex Male 12:08 PM CDT Gender [...] Assessment Author Status No 10/29/2021 3:32 PM APPLICATIONS ENGINEER MANUFACTURING Activ e * RETIRED Are you blind or do you have serious difficulty seeing, even when wearing glasses? Answer Date of Assessment Author Status No 10/29/2021 3:32 PM APPLICATIONS ENGINEER MANUFACTURING Activ e * Do you have serious difficulty walking or climbing stairs? Answer Date of Assessment Author Status No 10/29/2021 3:32 PM APPLICATIONS ENGINEER MANUFACTURING Kalina Stevens RN Active * Do you have difficulty dressing or bathing? Answer Date of Assessment Author Status No 10/29/2021 3:32 PM Kalina Ventura RN Active * Because of a physical, mental, or emotional condition, do you have difficulty doing errands alone such as visiting a doctor's office or shopping? Answer Date of Assessment Author Status No 10/29/2021 3:32 PM APPLICATIONS ENGINEER MANUFACTURING Kalina Stevens RN Active documented as of [...] st Contact Info) Description 09/06/2025 8:20 AM APPLICATIONS ENGINEER MANUFACTURING Office Visit [facility] Family & Internal Medicine [facility] [address] [place] [address] July Batista, LUCY [address] [address] documented as of this encounter Goals Goal [...] Total Score: 0 09/26/19 23 1:35 PM APPLICATIONS ENGINEER MANUFACTURING documented as of this encounter Care Teams Transit Specialist Relationship Specialty Start Date End Date July Batista APRN [address] [facility] [address] [place] [address] PCP - General NURSE PRACTITIONER 12/07/22 Ivon Castañeda MD INTERNAL MEDICINE 07/21/21 Robert Pierre MD [address] [id number] [place] [employer] Technician CARDIOVASCULAR DISEASE 02/01/16 Viv Leyva MD [facility]4 [facility] [address] [place] [address] [id number] INTERNAL MEDICINE 04/14/23 Lucho Gutiérrez MD 1225 [facility] [address] [place] [address] CARDIOVASCULAR DISEASE 06/29/24 documented as of this encounter
--- OUTSIDE RECORDS SUMMARY | 2025-08-23 10:48 | XMS_ITS | Encounter Summary ---
Author Organization [facility] Address [address] [place] [address] Care Team Providers Care Curriculum Coordinator Name Role Phone Ivon Castañeda MD Unavailable [phone] Robert Pierre MD Unavailable [phone] July Batista APRN Primary Care Provider [phone] Viv Leyva MD Unavailable [phone] Lucho Gutiérrez MD Unavailable [phone] Encounter Details Date Type Department Care Team (Late st Contact Info) Description 07/08/2025 GetMaid Message Enc [facility] Medical Group Family & Internal Medicine [address] [address] Florian, [facility] Provider Blood pressure readings Social History Tobacco [...] Sex Assigned at Male 09/18/2024 10:20 AM SALES FLOOR MANAGER Legal Sex Male 12:08 PM CDT Gender [...] Assessment Author Status No 10/29/2021 3:32 PM SALES FLOOR MANAGER Activ e * RETIRED Are you blind or do you have serious difficulty seeing, even when wearing glasses? Answer Date of Assessment Author Status No 10/29/2021 3:32 PM SALES FLOOR MANAGER Activ e * Do you have serious [...] st Contact Info) Description 09/06/2025 8:20 AM SALES FLOOR MANAGER Office Visit [facility] Medical Group Family & Internal Medicine [facility] [address] [place] [address] July Batista, CALL CENTER SPECIALIST [address] [address] documented as of this encounter [...] Total Score: 0 09/18/19 25 9:57 AM SALES FLOOR MANAGER documented as of this encounter Care Teams Curriculum Coordinator Relationship Specialty Start Date End Date July Batista APRN [address] [facility] [address] [place], [place] [id number] PCP - General NURSE PRACTITIONER 12/07/22 Ivon Castañeda MD INTERNAL MEDICINE 07/21/21 Robert Pierre MD [facility]. [facility] [address] [place], [place] [phone] [place] Distribution Manager CARDIOVASCULAR DISEASE 02/01/16 Viv Leyva MD [facility] [address] [place], [place] [phone] INTERNAL MEDICINE 04/14/23 Lucho Gutiérrez MD 1225 [facility] [address] [place] [address] CARDIOVASCULAR DISEASE 06/29/24 documented as of this encounter
--- OUTSIDE RECORDS SUMMARY | 2025-08-23 10:48 | XMS_ITS | Encounter Summary ---
Author Organization [facility] Address [address] [place] [address] Care Team Providers Care Salvage Supervisor Name Role Phone Ivon Castañeda MD Primary Care Provider + [phone] Iovn Castañeda MD Unavailable [phone] Robert Pierre MD Unavailable [phone] July Batista APRN Primary Care Provider + [phone] Viv Leyva MD Unavailable + [phone] Lucho Gutiérrez MD Unavailable [phone] Encounter Details Date Type Department Care Team (Late st Contact Info) Description 07/17/2022 Bionic Panda Games Message Enc [facility] Medical Group Family & Internal Medicine [address] [address] [place]ian, [facility] Provider Due for routine follow up appt [...] Sex Assigned at Male 09/18/2024 10:20 AM RESEARCH PHYSICIAN Legal Sex Male 12:08 PM CDT Gender [...] Assessment Author Status No 10/29/2021 3:32 PM RESEARCH PHYSICIAN Activ e * RETIRED Are you blind or do you have serious difficulty seeing, even when wearing glasses? Answer Date of Assessment Author Status No 10/29/2021 3:32 PM RESEARCH PHYSICIAN Activ e * Do you have serious difficulty walking or climbing stairs? Answer Date of Assessment Author Status No 10/29/2021 3:32 PM Kalina Ventura RN Active * Do you have difficulty dressing or bathing? Answer Date of Assessment Author Status No 10/29/2021 3:32 PM RESEARCH PHYSICIAN Kalina Stevens RN Active * Because of [...] st Contact Info) Description 09/06/2025 8:20 AM RESEARCH PHYSICIAN Office Visit [facility] Medical Group Family & Internal Medicine [facility] [address] [place] [address] July Batista APRN [address] [facility] [address] [place] [address] documented as of this encounter Goals [...] Total Score: 1 10/10/19 22 8:28 AM RESEARCH PHYSICIAN documented as of this encounter Care Teams Salvage Supervisor Relationship Specialty Start Date End Date Ivon Castañeda MD PCP - General INTERNAL MEDICINE 07/21/21 12/06/22 July Batista APRN [address] [address] PCP - General NURSE PRACTITIONER 12/07/22 Ivon Castañeda MD INTERNAL MEDICINE 07/21/21 Robert Pierre MD [address] [id number] [place] Animal Bounty Hunter CARDIOVASCULAR DISEASE 02/01/16 Viv Leyva MD [facility]4 [address] [id number] INTERNAL MEDICINE 04/14/23 Lucho Gutiérrez MD [facility]5 [facility] [address] [place] [address] CARDIOVASCULAR DISEASE 06/29/24 documented as of this encounter
--- OUTSIDE RECORDS SUMMARY | 2025-08-23 10:48 | XMS_ITS | Encounter Summary ---
Author Organization [facility] Address [address] [place] [address] Care Team Providers Care Air Force Senior Officer Name Role Phone Ivon Castañeda MD Unavailable [phone] Robert Pierre MD Unavailable [phone] July Batista APRN Primary Care Provider [phone] Viv Leyva MD Unavailable +[phone] Lucho Gutiérrez MD Unavailable [phone] Encounter Details Date Type Department Care Team (Late st Contact Info) Description 01/10/2024 Specialists On Call Message Enc [facility] Medical [facility] Family & Internal Medicine [address] [address] [place]ian, [facility] Provider pulmonology Social History Tobacco Use Types [...] Sex Assigned at Male 09/18/2024 10:20 AM LEASING REPRESENTATIVE Legal Sex Male 12:08 PM CDT Gender [...] Assessment Author Status No 10/29/2021 3:32 PM LEASING REPRESENTATIVE Activ e * RETIRED Are you blind or do you have serious difficulty seeing, even when wearing glasses? Answer Date of Assessment Author Status No 10/29/2021 3:32 PM LEASING REPRESENTATIVE Activ e * Do you have serious [...] st Contact Info) Description 09/06/2025 8:20 AM LEASING REPRESENTATIVE Office Visit [facility] Family & Internal Medicine [facility] [address] [place] [address] July Batista, SPECIAL EFFECTS PERSON [address] [address] documented as of this encounter Goals Goal [...] Total Score: 0 09/26/19 23 1:35 PM LEASING REPRESENTATIVE documented as of this encounter Care Teams Air Force Senior Officer Relationship Specialty Start Date End Date BatistaJuly APRN [address] [facility] [address] [place], [place] [phone] PCP - General NURSE PRACTITIONER 12/07/22 Ivon Castañeda MD INTERNAL MEDICINE 07/21/21 Robert Pierre MD [facility] [address] [place] [address] [place] Cad Manager CARDIOVASCULAR DISEASE 02/01/16 Viv Leyva MD [facility] [facility] [address] [place] [address] INTERNAL MEDICINE 04/14/23 Lucho Gutiérrez MD [address] [address] CARDIOVASCULAR DISEASE 06/29/24 documented as of this encounter
--- OUTSIDE RECORDS SUMMARY | 2025-08-23 10:48 | XMS_ITS | Clinical Summary ---
Author Organization [facility] Address [facility] [place] [address] Care Team Providers Care Vegetable Packer Name Role Phone Ivon Castañeda MD Unavailable [phone] Robert Pierre MD Unavailable [phone] July Batista APRN Primary Care Provider [phone] Viv Leyva MD Unavailable [phone] Lucho Gutiérrez MD Unavailable [phone] Allergies No known active allergies Medications Nebulizers (VIOS AEROSOL DELIVERY SYSTEM) Misc see administration instructions. 0 07/07/20 18 Active Respiratory Therapy Supplies (NEBULIZER) Device 07/07/20 18 Active Respiratory Therapy Supplies (NEBULIZER/TUBING /MOUTHPIECE) KitIndications:CO PD exacerbation ([facility]) 1 Units by Does not apply route 4 (four) times daily. 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 Active lidocaine (LIDODERM) 5 %Indications:[place] Erector shawanda bilateral low back pain, unspecified whether [...] 90 capsule 3 03/25/20 25 Active Umeclidinium [place] (INCRUSE ELLIPTA) 62.5 MCG/ACT AEROSOL POWDER, BREATH [...] 10/29 Assessment & Plan (10/29/2021 4:04 PM REGISTERED MEDICAL ASSISTANT): Assessment: He presented with a STEMI involving [...] 01/04/2021 Assessment & Plan (10/29/2021 4:05 PM REGISTERED MEDICAL ASSISTANT): Repeat lipid panel and continue atorvastatin 80 [...] Type Department Care Team Description 08/02/2025 Telephone [facility] Internal [address] [address] July Batista APRN Medication 07/23/[address] [address] July Batista APRN Prior Authorization 07/09/2025 Telephone [facility] Internal [address] [address] July Batista APRN Medication Information 07/08/2025 MyChart Message Enc [address] [address] Florian, [facility] Provider Blood pressure readings 06/24/2025 9:00 AM CDT Office Visit [facility] Internal [address] [address] uJly Batista APRN Breathing Problem (Started Saturday. Lung [...] 03/28/2012 Family History Medical History Relation Comments [place] Father Cancer Mother breast and lung Relation [...] Sex Assigned at Male 09/18/2024 10:20 AM REGISTERED MEDICAL ASSISTANT Legal Sex Male 12:08 PM CDT [...] st Contact Info) Description 09/06/2025 8:20 AM REGISTERED MEDICAL ASSISTANT Office Visit [facility] Medical Group Family & Internal Medicine [facility] [address] [place] [address] July Batista, COMBINATION WINDOW INSTALLER [address] [place] [address] Health Maintenance Due Date Last Done [...] SCREENING Completed 04/01/2023, 09/02, 07/22/2021 PHQ-2 (Physician [facility]) Completed 09/18/2024 Hepatitis A Vaccines Aged Out [...] discharge from hospital General No Lilo Guillermo manual winder Procedure Name Priority Date/Time Associated Diagnosis Comments CT ABD+PEL WO CON STAT 04/01/2023 7:1 8 AM CDT HEPATITIS C ANTIBODY W/RFX TO HCV RNA Routine 09/06/2020 8:35 AM REGISTERED MEDICAL ASSISTANT Need for hepatitis C screening test from [...] HCV RNA ([facility] ONLY) (09/06/2020 8:35 AM REGISTERED MEDICAL ASSISTANT) HEPATITIS C AB NON-REACTI VE NON-REACT CORI [facility] SIGNAL TO CUTOFF 0.02 <[address] [facility] Comment: HCV antibody was non-reactive. There is no laboratory evidence of HCV infection. In most cases, no further action is required. However, if recent HCV exposure is suspected, a test for HCV RNA (test code 05445) is suggested. For additional information please refer to http://education.Email Data Source.Bramasol/faq/GMT58j2 (This link is being provided for informational/ educational purposes only.) 09/06/2020 8:35 AM REGISTERED MEDICAL ASSISTANT 09/07/2020 4:25 AM REGISTERED MEDICAL ASSISTANT us Ivon Castañeda MD LABORATORY Final Result [facility] [address] [address] [id number] from Last 3 Months or Most Recently [...] 11:07 PM 11/25/2017 4:22 PM Care Teams Vegetable Packer Relationship Specialty Start Date End Date Batista, July A, COMBINATION WINDOW INSTALLER [address] [place] [address] PCP - General NURSE PRACTITIONER 12/07/22 Ivon Castañeda MD INTERNAL MEDICINE 07/21/21 Robert Pierre MD [facility]. [facility] [address] [place] [address] [place] Restaurant Host/Hostess CARDIOVASCULAR DISEASE 02/01/16 Viv Leyva MD 1404 [facility] [address] [place] [address] INTERNAL MEDICINE 04/14/23 Lucho Gutiérrez MD 1225 [facility] [address] [place] [address] CARDIOVASCULAR DISEASE 06/29/24
--- OUTSIDE RECORDS SUMMARY | 2025-08-23 10:48 | XMS_ITS | Encounter Summary ---
Author Organization [facility] Address [address] [place] [id number] Care Team Providers Care Second Worker Name Role Phone Ivon Castañeda MD Primary Care Provider + [phone] Ivon Castañeda MD Primary Care Provider + [phone] Ivon Castañeda MD Unavailable [phone] Robert Pierre MD Unavailable [phone] July Batista APRN Primary Care Provider + [phone] Viv Leyva MD Unavailable + [phone] Lucho Gutiérrez MD Unavailable [phone] Encounter Details Date Type Department Care Team (Late st Contact Info) Description 07/02/2016 Abstract [facility] AT [address] [address] Vincent Saldana MA Social History Tobacco Use Types Packs/Day Years Used Date Smoking Tobacco: Every Day Comments:He smoked for a vilma g time. He was able to quit for 2 years and then began again. Sex and Gender Information Value Date Recorded Sex Assigned at Male 09/18/2024 10:20 AM MANUFACTURERS REPRESENTATIVE Legal Sex Male 12:08 PM CDT Gender Identity Not on file Sexual Orientation Not on file documented as of this encounter Plan of Treatment Upcoming Encounters Date Type Department Care Team (Late st Contact Info) Description 09/06/2025 8:20 AM MANUFACTURERS REPRESENTATIVE Office Visit [facility] [address] [phone] July Batista, COMPENSATION PROGRAMS MANAGER [address] [place] [address] documented as of this encounter [...] Rule Out 08/06/2021 08/06/2021 08/06/2021 1:59 PM MANUFACTURERS REPRESENTATIVE documented as of this encounter Care Teams Second Worker Relationship Specialty Start Date End Date Ivon Castañeda MD PCP - General INTERNAL MEDICINE 04/02/16 07/20/21 Ivon Castañeda MD PCP - General INTERNAL MEDICINE 07/21/21 12/06/22 July Batista APRN [id number] [address] PCP - General NURSE PRACTITIONER 12/07/22 Ivon Castañeda MD INTERNAL MEDICINE 07/21/21 Robert Pierre MD [address] [address] [employer] Research Director CARDIOVASCULAR DISEASE 02/01/16 Viv Leyva MD [facility] [address] [address] INTERNAL MEDICINE 04/14/23 Lucho Gutiérrez MD [address] [facility] [address] [place] [address] CARDIOVASCULAR DISEASE 06/29/24 documented as of this encounter
[2025-08-23] MEDS: HYDROmorphone HCL INJ (*CRX) 1 MG/ML SYR 0.5 MG IV PUSH (10:53)
[2025-08-23] MEDS: PANTOPRAZOLE SODIUM IV 40 MG VIAL IV PUSH (10:54)
[2025-08-23 11:58] LABS: Troponin I < 0.012 ng/mL (0.000-0.034)
--- NOTE | 2025-08-23 11:59 | ECG_ITS ---
Test Date: 2025-08-23 12:23:32 Measurements Intervals Belva Rate: 87 P: 73 NM: 175 QRS: 50 QRSD: 89 T: 73 QT: 365 QTc: 439 Interpretive Statements SINUS RHYTHM BASELINE ARTIFACT- I, III, AVL NORMAL ECG Compared to ECG 08/23/2025 08:17:05 NO SIGNIFICANT CHANGE Electronically Signed On 08-23-2025 13:01:28 BUSINESS INVESTOR by Ramon Mercer D.O.
--- NOTE | 2025-08-23 14:34 | WPCEDHO ---
ED Hand Off Checklist All vitals saved: yes IV Site documented: yes All med administrations documented: yes Triage Note Triage Note pt ambulatory to ED for c/o chest 08/23/25 08:08 pain and head pain. pt says the chest pain started around 0200 today. pt says the pain is all over his chest and radiates to his neck. pt says he took 3 nitro with minimal relief. pt also c/o SOB. 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 Allergies No Known Allergies Allergy (Verified 08/23/25 08:16) Family History (Last Updated 06/08/24 @ 20:51 by Sepideh Pandey, RN) Father Acute myocardial infarction Sibling Acute myocardial infarction Administered/Completed Medications Discontinued Medications Aspirin (Aspirin 81 Mg Chewable Tablet) 324 mg PO ONCE STA Stop: 08/23/25 08:06 Last Admin: 08/23/25 08:20 Dose: 243 mg Documented By: ROMI Comments: pt took 81mg aspirin at home Hydromorphone HCl (Hydromorphone Hcl Inj (*Crx) 1 Mg/Ml Syr) 0.5 mg IV PUSH ONCE STA Stop: 08/23/25 10:50 Last Admin: 08/23/25 10:53 Dose: 0.5 mg Documented By: ROMI Pantoprazole Sodium (Pantoprazole Sodium Iv 40 Mg Vial) 40 mg IV PUSH ONCE STA Stop: 08/23/25 10:45 Last Admin: 08/23/25 10:54 Dose: 40 mg Documented By: ROMI Interventions/Assessments Cardiac Monitoring Start: 08/23/25 08:04 Freq: Status: Active Protocol: Document 08/23/25 08:36 ROMI (Rec: 08/23/25 08:36 ROMI [id number]) Health Care Sanitary Technician Assessment Health Care Sanitary Technician Yes Applied Pulse Rate (60-100 90 beats/min) EKG Rythm Sinus Rhythm IV / Saline Lock, Insert Start: 08/23/25 08:05 Freq: STAT Status: Active Protocol: Document 08/23/25 08:14 ROMI (Rec: 08/23/25 08:14 ROMI [id number]) IV Assessment Peripheral Access Right Antecubital IV Catheter Access Initiated IV Insertion Date 08/23/25 IV Insertion Time 08:14 Catheter Gauge 18 IV Insertion 1 Attempts Ultrasound Used for No Placement IV Site Assessment WNL IV Care and WNL Maintenance PA: Cardiovascular Assessment Start: 08/23/25 08:04 Freq: Status: Active Protocol: Document 08/23/25 08:15 KNW (Rec: 08/23/25 08:15 KNW [id number]) Cardiovascular Assessment Cardiovascular Chest Pain Symptoms Skin Description Normal Color Heart Sounds Normal Jugular Vein None Distention Chest Pain Assessment Chest Pain Intensity 10 Chest Pain Location chest Description and Tightness Symptoms Chest Pain Duration > 6 Hours Chest Pain Radiation Neck Jugular Vein None Distention PA: Respiratory Assessment Start: 08/23/25 08:04 Freq: Status: Active Protocol: Document 08/23/25 08:15 KNW (Rec: 08/23/25 08:15 KNW [id number]) Respiratory Assessment Symptoms Shortness of Breath at Rest Effort Short of Breath Pattern Regular Depth Normal Chest Expansion Symmetrical Cough Description None Sputum Amount None Oxygen Delivery Oxygen Delivery Room Air Pulse Oximetry (90- 99 100 %) Last Vital Signs Temperature 97.7 F 08/23/25 08:08 Pulse Rate 83 08/23/25 13:58 Respiratory Rate 20 08/23/25 13:58 Pulse Oximetry 97 08/23/25 13:58 Blood Pressure 139/115 H 08/23/25 13:58 Blood Pressure Mean 123 08/23/25 13:58 Blood Pressure Position Sitting 08/23/25 08:08 Oxygen Delivery Room Air 08/23/25 08:16 Weight 109 kg 08/23/25 08:08 Last Result - Abnormals Only MPV 12.1 fl (7.4-10.4) H 08/23/25 08:18 Glucose 123 mg/dL (65-110) H 08/23/25 08:19 Most Recent Suicide Severity Rating Suicide Severity Rating NO RISK INDICATED 08/23/25 08:08
[2025-08-23 14:50] LABS: Troponin I < 0.012 ng/mL (0.000-0.034)
--- NOTE | 2025-08-23 15:40 | ADMGEN ---
This patient, Azeem Sweeney, was admitted to IMU Room 212-01. Patient/family oriented to hospital policies and general routines including ID bracelet, bed and alarms, visiting hours, pain management, procedures, bathroom and other care routines, personal items, smoking policy, room service/diet, and visiting hours. Information on how to activate the Rapid Response Team has been discussed. Patient/Family are encouraged to report perceived risks to care and to ask questions if they do not understand what they are told or what they should do.
--- NOTE | 2025-08-23 16:03 | P.HP_ITS ---
H&P: HPI History of Present Illness Date/Time: 08/23/25 16:03 Chief Complaint: Chest pain Narrative: 64-year-old male with a significant heart history and 6 cardiac stents, COPD hypertension a and lipidemia presents the hospital with chest pain. Patient states that his chest pain feels exactly like when he had his heart attack. Patient complains of epigastric pain, chest pain and left neck pain. Patient follows with cardiology [facility]. Patient denies nausea vomiting or shortness of breath. Lab work in the ED shows WBC of 8.3, hemoglobin of 15.5, INR 1.0 glucose of 123, troponin x3 negative. Chest x-ray with no acute findings CT with no acute findings. Review of Systems Review of Systems: 12 systems were reviewed and are negativ e except for as per HPI. [facility] Past Medical History Medical History COPD (chronic obstructive pulmonary disease) COPD (chronic obstructive pulmonary disease) Coronary disease Dyslipidemia Former tobacco use Hypertension Family History Family History Father Acute myocardial infarction Sibling Acute myocardial infarction Social History Social History Smoking packs per day: 2.5 Smoking cigarettes per day: 50.0 Years smoked: 35 Smoking pack-years: 87.50 Smoking status: Former smoker Tobacco type: cigarettes Smokeless tobacco user: chewing tobacco Second hand tobacco smoke exposure: No Smoking end date: 09/02/13 Alcohol intake: current Drinks per week: 49 Alcohol use details: Drinks six beers per day or better Substance use: never Substance use type: does not use Last use: 06/07/24 Lack of Transportation: No Lack of Food: Never True Current Housing: I Have Housing Concerned About Future Housing: No Difficulty Paying Gas/Electric Bills: No Difficulty Paying for Meds: No Currently Unemployed: No Education: High School Diploma/GED Difficulty w/ Childcare or Family Care: No Living arrangements: other Additional living arrangements comments: Lives with his girlfriend and his mother Spiritual care concerns: No Meds Home Medications and Allergies Home Medications ?Medication ?Instructions ?Recorded ?Confirmed ?Type albuterol sulfate 90 mcg/actuation 2 puff inhalation Q 6H 11/01/21 08/23/25 History aerosol inhaler (Proventil HFA) aspirin 81 mg capsule 81 mg PO DAILY 11/01/2108/03 History atorvastatin 80 mg tablet 80 mg PO DAILY 11/01/2108/03 History ticagrelor 90 mg tablet 90 mg PO Q12H 11/01/2108/23 History alprazolam 0.5 mg tablet (Xanax) 0.5 mg PO DAILY #3 ta bs 11/06/21 08/23/25 Rx allopurinol 300 mg tablet 300 mg PO DAILY 08/23/25 History amlodipine 5 mg tablet 5 mg PO DAILY 08/23/2508/23 History fluticasone furoate 100 1 inh inhalation Q24H 08/23/25 History mcg-vilanterol 25 mcg/dose inhalation powder (Breo Ellipta) losartan 25 mg tablet 25 mg PO DAILY 08/23/2508/03 History montelukast 10 mg tablet 10 mg PO QPM 08/23/25 History pantoprazole 40 mg tablet,delayed 40 mg PO DAILY 08/2308/23/25 History release prednisone 5 mg tablet 5 mg PO DAILY 08/23/2508/23 History umeclidinium 62.5 mcg/actuation 1 inh inhalation Q24H 08/23/25 08/23/25 History blister powder for inhalation (Incruse Ellipta) Allergies Allergy/AdvReac Type Severity Reaction Status Date / Time No Known Allergies Allergy Verified 08/23/25 15:38 Vital Signs Vital Signs - 24 hr 08/23/25 08:08 08/23/25 08:15 08/23/25 08:16 Temperature 97.7 F Pulse Rate 94 Respiratory Rate 12 Blood Pressure 175/118 H Pulse Oximetry 97 99 98 Oxygen Delivery Room Air Room Air Room Air 08/23/25 08:31 08/23/25 08:36 08/23/25 08:54 Temperature Pulse Rate 99 90 93 Respiratory Rate 12 14 Blood Pressure 169/111 H 156/110 H Pulse Oximetry 97 Oxygen Delivery 08/23/25 09:01 08/23/25 09:31 08/23/25 10:01 Temperature Pulse Rate 95 88 90 Respiratory Rate 19 14 17 Blood Pressure 150/100 H 153/112 H 166/101 H Pulse Oximetry 97 98 96 Oxygen Delivery 08/23/25 11:37 08/23/25 13:58 08/23/25 14:31 Temperature Pulse Rate 99 83 85 Respiratory Rate 13 20 17 Blood Pressure 130/95 H 139/115 H 155/96 H Pulse Oximetry 99 97 97 Oxygen Delivery 08/23/25 15:16 Temperature 97.9 F Pulse Rate 86 Respiratory Rate 24 H Blood Pressure 156/90 H Pulse Oximetry 99 Oxygen Delivery Exam Narrative: General: well appearing, appears stated age. HEENT: normocephalic, atraumatic. Mucous membranes moist. EOMI, PERRLA, bilateral sclera anicteric, no conjunctival injection. Neck supple without JVD, lymphadenopathy, or bruit. Respiratory: clear bilaterally. No rales/rhonic/wheezes. Cardiovascular: Regular rate and rhythm, normal S1-S2. No murmurs, rubs, or clicks. PMI is nondisplaced, capillary refill less than 3 second. Abdomen: Soft, round, no pulsatile masses, nondistended and nontender. No rebound, no guarding. Bowel sounds present to all four quadrants. No high pitch or tinkling sounds, resonant to percussion. Extremities: No cyanosis, clubbing, or edema present. Pulses are palpable 2/2. Active ROM to all four extremities. Neuro: Alert and orientated x 4. PERRLA. Cranial nerves 2-12 intact without focal deficit. Skin: Warm, dry, and intact, without rash, erythema, or lesion. Psych: pleasant, cooperative, normal speech, normal affect, no hallucinations, no dysarthia Results Labs Labs: Short CBC 08/23/25 Range/Units 08:18 WBC 8.3 (4.5-10.0) K/mm3 Hgb 15.5 (14.0-18.0) g/dL Hct 45.6 (42.0-52.0) % Plt Count 163 (150-375) k/mm3 [facility] 08/23/25 08:19 Sodium 137 Potassium 4.8 Chloride 103 Carbon Dioxide 25 BUN 15 D Creatinine 0.95 Glucose 123 H Calcium 9.8 Cardiac Enzymes 08/23/25 08/23/25 08/23/25 Range/Units 08:19 11:31 14:08 Troponin I < 0.012 < 0.012 < 0.012 (0.000-0.034) ng/mL Liver Function 08/23/25 Range/Units 08:19 Total Bilirubin 0.6 (0.2-1.3) mg/dL AST 37 (17-59) U/L ALT 41 (6-50) U/L Alkaline Phosphatase 90 (38-126) U/L Albumin 4.9 (3.5-5.1) g/dL Imaging Chest x-ray: Attestation: I personally reviewed this imaging study Radiologist's impression: IMPRESSION: 1. No acute cardiopulmonary findings. CT scan - head: Radiologist's impression: IMPRESSION: CT HEAD: 1. No acute intracranial findings. CTA NECK: 1. No ICA stenosis or other acute arterial abnormality. 2. Emphysema. Recommend annual screening CT chest. CTA HEAD: 1. No large vessel arterial occlusive disease or other acute findings. 2. No aneurysms. Assessment and Plan Assessment and plan (1) Chest pain: Code(s): R07.9 - Chest pain, unspecified Status: Acute Assessment and Plan: Cardiology consulted Troponins negative x3 Will defer to Cardiology for further workup Nitro p.r.n. NPO in case Cardiology wants to do a procedure (2) Epigastric abdominal pain: Code(s): R10.13 - Epigastric pain Status: Acute Assessment and Plan: Protonix (3) COPD (chronic obstructive pulmonary disease): Code(s): J44.9 - Chronic obstructive pulmonary disease, unspecified Status: Acute Assessment and Plan: DuoNeb Continue home inhalers (4) Dyslipidemia: Code(s): E78.5 - Hyperlipidemia, unspecified Status: Acute Assessment and Plan: Continue Lipitor (5) Anxiety: Code(s): F41.9 - Anxiety disorder, unspecified Status: Acute Assessment and Plan: Continue Xanax (6) Coronary disease: Qualifiers: Coronary Disease-Associated Artery/Lesion type: [place] artery [place] vs. transplanted heart: [place] heart Associated angina: without angina Qualified Code(s): I25.10 - Atherosclerotic heart disease of [place] coronary artery without angina pectoris Code(s): I25.10 - Atherosclerotic heart disease of [place] coronary artery without angina pectoris Status: Acute Assessment and Plan: Continue statin, amlodipine, aspirin, Brilinta Time Spent with Patient Time with patient: less than 45 minutes Hospitalist MIPS Advance Care Plan I have confirmed that the patient's Advanced Care Plan is present, code status is documented, or surrogate decision maker is listed in patient medical record.: Yes Medication Reconciliation I have utilized all available resources to obtain, update and review the patients current medications (includes all prescriptions, OTC, herbals, cannabis, and nutritional supplements).: Yes
[2025-08-23 16:30] LABS: Cholesterol 241 mg/dL (0-200); HDL Direct 72 mg/dL; Triglycerides 177 mg/dL (<150)
[2025-08-23] MEDS: ALBUTEROL SULFATE (*SP) AEROSOL 1 PUFF 2 PUFF INHALATION (20:33)
[2025-08-23] MEDS: TICAGRELOR 90 MG TABLET PO (20:40)
[2025-08-23] MEDS: MONTELUKAST SODIUM 10 MG TABLET PO (20:40)
[2025-08-24] VITALS (11 sets, daily range): BP systolic 136–148; BP diastolic 88–110; PULSE 77–93; RESP 16–20; TEMP 36.4–36.6; O2SAT 96–98
[2025-08-24] MEDS: IPRATROPIUM 0.5 MG/ALBUTEROL SULFATE 2.5 MG (BASE) AMPUL.NEB 3 ML INHALATION ×2 (01:51→08:44)
[2025-08-24] MEDS: BELLADONNA ALK/PHENOB ELIX 10 ML, MAG HYDROX/ALUMINUM HYD/SIMETH 30 ML, LIDOCAINE 2% VI... PO (02:32)
--- NOTE | 2025-08-24 02:52 | PC.NURSE ---
Patient complained of epigastric discomfort, asking for something for indigestion. Patient denied chest pain. GI cocktail administered. patient passed gas, epigastric discomfort relieved.
[2025-08-24] MEDS: UMECLIDINIUM BROMIDE 62.5 MCG ELLIPTA 1 PUFF INHALATION (08:45)
[2025-08-24] MEDS: TICAGRELOR 90 MG TABLET PO (08:46)
[2025-08-24] MEDS: ALPRAZolam (*CRX) 0.5 MG TABLET PO (08:46)
[2025-08-24] MEDS: ATORVASTATIN 40 MG TABLET 80 MG PO (08:46)
[2025-08-24] MEDS: LOSARTAN POTASSIUM 25 MG TABLET PO (08:46)
[2025-08-24] MEDS: ASPIRIN 81 MG CHEWABLE TABLET PO (08:46)
[2025-08-24] MEDS: PANTOPRAZOLE SODIUM IV 40 MG VIAL IV PUSH (08:46)
--- NOTE | 2025-08-24 09:57 | PM.CNCAR ---
Assessment and Plan Assessment and plan (1) Coronary disease: Qualifiers: Coronary Disease-Associated Artery/Lesion type: [place] artery [place] vs. transplanted heart: [place] heart Associated angina: without angina Qualified Code(s): I25.10 - Atherosclerotic heart disease of [place] coronary artery without angina pectoris Code(s): I25.10 - Atherosclerotic heart disease of [place] coronary artery without angina pectoris Status: Acute (2) Chest pain: Code(s): R07.9 - Chest pain, unspecified Status: Acute (3) Hypertension: Qualifiers: Hypertension type: primary hypertension Qualified Code(s): I10 - Essential (primary) hypertension Code(s): I10 - Essential (primary) hypertension Status: Acute Plan 64-year-old man with CAD status post PCI, hypertension, hyperlipidemia, and COPD presents with chest discomfort Chest discomfort -noncardiac -troponin negative x3 and EKG is normal -symptoms improving with GI cocktail Coronary artery disease status post PCI -continue aspirin 81 mg p.o. daily and Brilinta 90 mg p.o. b.i.d. -can discussed in the outpatient setting decreasing Brilinta to 60 mg p.o. b.i.d. to see if there is improvement in his acid reflux symptoms -continue atorvastatin 80 mg every evening Hypertension -continue amlodipine and losartan Patient can be discharged from a cardiac perspective to follow up with Dr. Gutiérrez in 2-4 weeks History of Present Illness History of Present Illness Consult date/time: 08/24/25 09:57 Requesting physician: July Baldwin APRN Consult reason: chest pain Reason For Visit: Chest Pain Narrative: 64-year-old man with CAD status post PCI, hypertension, hyperlipidemia, and COPD presents with chest discomfort. To me, he endorses that his chest discomfort did not feel anything like his previous heart attacks. The chest discomfort started Saturday evening and has been continuous. There has been no worsening of the discomfort that he describes as pressure-like sensation with physical activity. There has been no associated shortness of breath. He states that yesterday evening the chest discomfort was at its worse while he was in his bed trying to sleep at night. He received a GI cocktail as well as some Mylanta and shortly after with near resolution of his chest discomfort. This morning his main complaint is being on dietary restrictions and that he needs to eat. Review of Systems Cardiovascular: Cardiovascular: Reports as per HPI Respiratory: Respiratory: Reports as per HPI [facility]LY [facility] Past Medical History Medical History COPD (chronic obstructive pulmonary disease) COPD (chronic obstructive pulmonary disease) Coronary disease Dyslipidemia Former tobacco use Hypertension Family History Family History Father Acute myocardial infarction Sibling Acute myocardial infarction Social History Social History Smoking packs per day: 2.5 Smoking cigarettes per day: 50.0 Years smoked: 35 Smoking pack-years: 87.50 Smoking status: Former smoker Tobacco type: cigarettes Smokeless tobacco user: chewing tobacco Second hand tobacco smoke exposure: No Smoking end date: 09/02/13 Alcohol intake: current Drinks per week: 49 Alcohol use details: Drinks six beers per day or better Substance use: never Substance use type: does not use Last use: 06/07/24 Lack of Transportation: No Lack of Food: Never True Current Housing: I Have Housing Concerned About Future Housing: No Difficulty Paying Gas/Electric Bills: No Difficulty Paying for Meds: No Currently Unemployed: No Education: High School Diploma/GED Difficulty w/ Childcare or Family Care: No Living arrangements: other Additional living arrangements comments: Lives with his girlfriend and his mother Spiritual care concerns: No Meds Home Medications and Allergies Home Medications ?Medication ?Instructions ?Recorded ?Confirmed ?Type albuterol sulfate 90 mcg/actuation 2 puff inhalation Q6H 11/01/21 08/23/25 History aerosol inhaler (Proventil HFA) aspirin 81 mg capsule 81 mg PO DAILY 11/01/21 08/23/25 History atorvastatin 80 mg tablet 80 mg PO DAILY 11/01/21 08/23/25 History ticagrelor 90 mg tablet 90 mg PO Q12H 11/01/21 08/23/25 History alprazolam 0.5 mg tablet (Xanax) 0.5 mg PO DAILY #3 tabs 11/06/21 08/23/25 Rx allopurinol 300 mg tablet 300 mg PO DAILY 08/23/25 08/23/25 History amlodipine 5 mg tablet 5 mg PO DAILY 08/23/25 08/23/25 History fluticasone furoate 100 1 inh inhalation Q24H 08/23/25 08/23/25 History mcg-vilanterol 25 mcg/dose inhalation powder (Breo Ellipta) losartan 25 mg tablet 25 mg PO DAILY 08/23/25 08/23/25 History montelukast 10 mg tablet 10 mg PO QPM 08/23/25 08/23/25 History pantoprazole 40 mg tablet,delayed 40 mg PO DAILY 08/23/25 08/23/25 History release prednisone 5 mg tablet 5 mg PO DAILY 08/23/25 08/23/25 History umeclidinium 62.5 mcg/actuation 1 inh inhalation Q24H 08/23/25 08/23/25 History blister powder for inhalation (Incruse Ellipta) Allergies Allergy/AdvReac Type Severity Reaction Status Date / Time No Known Allergies Allergy Verified 08/23/25 15:38 Vital Signs Vital Signs - 24 hr 08/23/25 10:01 08/23/25 11:37 08/23/25 13:58 Temperature Pulse Rate 90 99 83 Respiratory Rate 17 13 20 Blood Pressure 166/101 H 130/95 H 139/115 H Pulse Oximetry 96 99 97 Oxygen Delivery 08/23/25 14:31 08/23/25 15:16 08/23/25 16:00 Temperature 36.6 C Pulse Rate 85 86 85 Respiratory Rate 17 24 H Blood Pressure 155/96 H 156/90 H Pulse Oximetry 97 99 Oxygen Delivery 08/23/25 18:00 08/23/25 18:58 08/23/25 19:33 Temperature 36.6 C Pulse Rate 86 80 Respiratory Rate 24 H Blood Pressure 162/98 H Pulse Oximetry 99 Oxygen Delivery Room Air 08/23/25 20:00 08/23/25 20:33 08/23/25 21:10 Temperature Pulse Rate 84 79 Respiratory Rate 18 Blood Pressure Pulse Oximetry 99 Oxygen Delivery Room Air 08/23/25 22:00 08/24/25 00:00 08/24/25 00:00 Temperature Pulse Rate 79 79 Respiratory Rate Blood Pressure Pulse Oximetry Oxygen Delivery Room Air 08/24/25 00:00 08/24/25 01:54 08/24/25 01:59 Temperature 36.5 C Pulse Rate 84 77 77 Respiratory Rate 16 18 18 Blood Pressure 148/88 H Pulse Oximetry 98 Oxygen Delivery 08/24/25 02:18 08/24/25 04:00 08/24/25 04:00 Temperature Pulse Rate 78 84 Respiratory Rate Blood Pressure Pulse Oximetry Oxygen Delivery Room Air 08/24/25 04:00 08/24/25 06:16 08/24/25 07:19 Temperature 36.4 C L 36.6 C Pulse Rate 91 83 83 Respiratory Rate 20 18 Blood Pressure 136/90 146/110 H Pulse Oximetry 96 97 Oxygen Delivery 08/24/25 08:46 08/24/25 08:54 08/24/25 08:56 Temperature Pulse Rate 93 88 Respiratory Rate 18 18 Blood Pressure Pulse Oximetry 97 Oxygen Delivery Room Air Exam Const: General: comfortable HENMT: Mouth: Yes moist mucous membranes Eyes: EOM: EOMs intact bilaterally Neck: Neck: no JVD Resp: Effort & Inspection: normal respiratory effort Auscultation: clear to auscultation bilaterally Cardio: Rate: regular rate Rhythm: regular rhythm Heart sounds: no gallops and no murmurs Extrem: General: no pedal edema Results Labs and Meds 08/23/25 08:18 08/23/25 08:19 Lab results: Cardiac Enzymes 08/23/25 08/23/25 Range/Units 11:31 14:08 Troponin I < 0.012 < 0.012 (0.000-0.034) ng/mL Lipids 08/23/25 Range/Units 08:18 Triglycerides 177 H (<150) mg/dL Cholesterol 241 H (0-200) mg/dL Intake and Output 08/23/25 08/24/25 08/24/25 23:59 07:59 15:59 Intake Total 360 450 Output Total 600 800 Balance -240 -350 Intake: Oral 360 450 Output: Urine 600 800 Patient Weight 08/24/25 23:59 Weight 106 kg
--- NOTE | 2025-08-24 10:47 | P.DS_ITS ---
DS: Admitting Diagnosis Discharge Date 08/24/2025 Admitting Diagnosis Chest pain DS: Discharge Diagnosis Discharge Diagnosis (1) Chest pain: Code(s): R07.9 - Chest pain, unspecified Status: Acute Assessment and Plan: Cardiology consulted Troponins negative x3 Will defer to Cardiology for further workup Nitro p.rdavid NPO in case Cardiology wants to do a procedure (2) Epigastric abdominal pain: Code(s): R10.13 - Epigastric pain Status: Acute Assessment and Plan: Protonix (3) COPD (chronic obstructive pulmonary disease): Code(s): J44.9 - Chronic obstructive pulmonary disease, unspecified Status: Acute Assessment and Plan: Devin Continue home inhalers (4) Dyslipidemia: Code(s): E78.5 - Hyperlipidemia, unspecified Status: Acute Assessment and Plan: Continue Lipitor (5) Anxiety: Code(s): F41.9 - Anxiety disorder, unspecified Status: Acute Assessment and Plan: Continue Xanax (6) Coronary disease: Qualifiers: Coronary Disease-Associated Artery/Lesion type: [place] artery [place] vs. transplanted heart: [place] heart Associated angina: without angina Qualified Code(s): I25.10 - Atherosclerotic heart disease of [place] coronary artery without angina pectoris Code(s): I25.10 - Atherosclerotic heart disease of [place] coronary artery without angina pectoris Status: Acute Assessment and Plan: Continue statin, amlodipine, aspirin, Brilinta DS: Summary Hospital Course Reason for hospitalization: Chest pain Hospital Course: 64 years old male was admitted with complaint of having chest pain. Patient workup for acute myocardial infarction was negative. Cardiology was consulted. No new recommendations were made. Patient is feeling better and was discharged home stable condition. Follows with primary care and Cardiology schedule an outpatient. Status at Discharge Cognitive/behavioral status at discharge: Stable Time Spent with Patient Time attestation: Total time spent providing and/or coordinating discharge services: 30 minutes Exam Narrative: General: well appearing, appears stated age. HEENT: normocephalic, atraumatic. Mucous membranes moist. EOMI, PERRLA, bilateral sclera anicteric, no conjunctival injection. Neck supple without JVD, lymphadenopathy, or bruit. Respiratory: clear bilaterally. No rales/rhonic/wheezes. Cardiovascular: Regular rate and rhythm, normal S1-S2. No murmurs, rubs, or clicks. PMI is nondisplaced, capillary refill less than 3 second. Abdomen: Soft, round, no pulsatile masses, nondistended and nontender. No rebound, no guarding. Bowel sounds present to all four quadrants. No high pitch or tinkling sounds, resonant to percussion. Extremities: No cyanosis, clubbing, or edema present. Pulses are palpable 2/2. Active ROM to all four extremities. Neuro: Alert and orientated x 4. PERRLA. Cranial nerves 2-12 intact without focal deficit. Skin: Warm, dry, and intact, without rash, erythema, or lesion. Psych: pleasant, cooperative, normal speech, normal affect, no hallucinations, no dysarthia DS: Data Data Completed and Pending Labs on day of discharge: Labs from last 24 hours 08/23/25 08/23/25 08/23/25 14:08 11:31 08:18 Troponin I < 0.012 < 0.012 Triglycerides 177 H Cholesterol 241 H LDL Cholesterol Direct 119 HDL Direct 72 Discharge Plan Discharge Attending physician on discharge: Roc Person Consulting providers: Rupal Schafer Discharging Clinician: Roc Person Patient Disposition: Home Activity: as tolerated Diet: as tolerated and heart healthy Patient Instructions: Antibiotic Form, Ticagrelor (By mouth) Patient Language: [place] Stand Alone Forms: General Discharge Information Follow-up/Referrals: Garry,Ivon Singer MD [Primary Care Provider] Rupal Schafer DO [Physician, Cardiology] Discharge Medications: Continued atorvastatin 80 mg Tablet 80 mg PO DAILY albuterol sulfate [Proventil HFA] 90 mcg/actuation Hfa Aerosol Inhaler 2 puff INHALATION Q6H ticagrelor 90 mg Tablet 90 mg PO Q12H aspirin 81 mg Capsule 81 mg PO DAILY alprazolam [Xanax] 0.5 mg tablet 0.5 mg PO DAILY Qty: 3 0RF pantoprazole 40 mg tablet,delayed release (DR/EC) 40 mg PO DAILY prednisone 5 mg tablet 5 mg PO DAILY montelukast 10 mg tablet 10 mg PO QPM Incruse Ellipta 62.5 mcg/actuation blister with device 1 inh INHALATION Q24H fluticasone furoate-vilanterol [Breo Ellipta] 100-25 mcg/dose blister with device 1 inh INHALATION Q24H allopurinol 300 mg tablet 300 mg PO DAILY amlodipine 5 mg tablet 5 mg PO DAILY losartan 25 mg tablet 25 mg PO DAILY Date of admission: 08/23/25 13:17 Primary Care Provider: Garry,Ivon Singer Admitting Provider: Sergey Sanabria Attending physician on admission: Sergey Sanabria Condition: Stable
== END 2025-08-24 11:14 | disposition home or self-care (01) ==
LOC: ANHED 09:44 → ANHIMU 16:05
PROVIDERS: Nurse Practitioner Gerontology; Admitting Provider Internal Medicine; Emergency Provider Emergency Medicine; PCP Internal Medicine; Visit Provider Internal Medicine
DX: R07.9 Chest pain, unspecified (principal); R10.13 Epigastric pain; J43.9 Emphysema, unspecified; E78.5 Hyperlipidemia, unspecified; F41.9 Anxiety disorder, unspecified; I25.10 Atherosclerotic heart disease of native coronary artery without angina pectoris; I10 Essential (primary) hypertension; Z87.891 Personal history of nicotine dependence; Z99.81 Dependence on supplemental oxygen; Z79.82 Long term (current) use of aspirin; Z79.51 Long term (current) use of inhaled steroids; Z79.02 Long term (current) use of antithrombotics/antiplatelets; Z79.52 Long term (current) use of systemic steroids; Z95.5 Presence of coronary angioplasty implant and graft; Z82.49 Family history of ischemic heart disease and other diseases of the circulatory system
CPT/HCPCS: 36415; 70496; 70498; 71046; 80053; 80061; 83690; 84484; 85025; 85380; 85610; 85730; 93005; 94640; 96374; 96375; 96376; 99285; A9270; G0378; J1171; J2470; Q9967